=== PATIENT | male | born 1950 | race Caucasian/White ===

== ENCOUNTER 2019-07-18 11:15 | Inpatient (IN) | payer MEDICARE, MEDICAID ==
[~2019-07-18] VITALS: Ht 180.3 cm; Wt 75.7 kg
[~2019-07-18 11:15] MED LIST: ACETAMINOP500 MG/51 ORAL; ARICEPT10 MG ORAL; LISINOPRIL5 MG ORAL; PROTONIX40 MG ORAL; UNOBMED
--- NOTE | 2019-07-18 11:36 | Emergency Room Report ---
History of Present Illness General Chief Complaint: Generalized Weakness Source: Medical Record, EMS Present Illness HPI The patient is brought in by BLS from rehab at the [facility] for not eating for 1 week. There is very little history available. The patient was recently discharged from the hospital. Discharge diagnoses: 1. Dementia with behavioral changes, Alzheimer's. 2. Obstructive sleep apnea. 3. History of anemia. 4. Hypertension. 5. Agitation. 6. History of sinusitis. 7. Gravely disabled Allergies: Coded Allergies: BARBITURATES (Verified Allergy, Unknown, 07/07/16) BENZODIAZEPINES (Verified Allergy, Unknown, 07/07/16) CIPROFLOXACIN (Verified Allergy, Unknown, 07/18/19) DIPHENHYDRAMINE (Verified Allergy, Unknown, 07/07/16) DIVALPROEX SODIUM (Verified Allergy, Unknown, 07/07/16) HALOPERIDOL (Verified Allergy, Unknown, 07/07/16) LACTULOSE (Verified Allergy, Unknown, 07/18/19) LEVOFLOXACIN (Verified Allergy, Unknown, 07/18/19) LITHIUM (Verified Allergy, Unknown, 07/07/16) LORATADINE (Verified Allergy, Unknown, 07/07/16) LORAZEPAM (Verified Allergy, Unknown, 07/18/19) MEMANTINE (Verified Allergy, Unknown, 07/18/19) OLANZAPINE (Verified Allergy, Unknown, 07/07/16) PENICILLINS (Verified Allergy, Unknown, 07/07/16) QUETIAPINE (Verified Allergy, Unknown, 07/07/16) ZOLPIDEM (Verified Allergy, Unknown, 07/07/16) Uncoded Allergies: ANTIHISTAMINE (Allergy, Unknown, 07/07/16) Patient History Limited by: medical condition Past Medical History: see triage record, old chart reviewed Past Surgical History: appy, other Social History Narrative retirement facility Reviewed Nursing Documentation: PMH: Agreed; PSxH: Agreed Nursing Documentation-PMH Hx Cardiac Problems: Yes Hx Hypertension: Yes Hx Diabetes: No Hx Cancer: No Hx Gastrointestinal Problems: Yes Hx Neurological Problems: Yes - Aleheimer's disease, Sleep Apnea, herinated disc, atrophy Hx Alzheimer's Disease: Yes Hx Seizures: No Hx Neurologic Surgery: No Hx Brain Shunt: No Review of Systems All Other Systems: limited Physical Exam Vital Signs Date Time Temp Pulse Resp B/P (MAP) Pulse Ox O2 Delivery O2 Flow Rate FiO2 07/18/19 11:16 99.0 72 18 96/61 (73) 90 Room Air General Appearance: no apparent distress, alert - But not responding to verbal stimuli or direction, Chronically Ill Eyes: bilateral eye normal inspection, bilateral eye PERRL ENT: dry mucus membranes Neck: supple Respiratory: lungs clear, normal breath sounds Cardiovascular #1: regular rate, rhythm, no edema Cardiovascular #2: 2+ radial (L) Gastrointestinal: normal inspection, soft, decreased bowel sounds Genitourinary: no CVA tenderness Musculoskeletal: back normal, normal range of motion Neurologic: responsive - Minimally to verbal stimuli, motor strength/tone normal, DTRs symmetric Psychiatric: other - Somewhat agitated and occasionally striking out Skin: no rash Medical Decision Making Diagnostic Impression: Primary Impression: UTI (urinary tract infection) Qualified Codes: N39.0 - Urinary tract infection, site not specified Additional Impressions: Transient hypotension Alzheimer's dementia with behavioral disturbance Qualified Codes: G30.9 - Alzheimer's disease, unspecified; F02.81 - Dementia in other diseases classified elsewhere with behavioral disturbance Pleural effusion, left Hypernatremia Renal insufficiency Fecal impaction ER Course Patient presents with inability to eat for a week. This is a very complex patient as he is unable to communicate. Differential includes acute myocardial infarction, occult infection, exacerbation of depression and schizophrenia, electrolyte imbalance, dehydration amongst others. Evaluation with EKG, chest x -ray, abdominal film and labs. Treatment with IV hydration. There is difficulty as the patient is combative and he is allergic to multiple medications used for sedation. The patient is placed on a electric stop installer. EKG without injury. Chest x-ray left effusion with possible infiltrate. Abdominal films no obstruction. Labs without leukocytosis. Elevated sodium and chloride. Renal insufficiency. Pyuria. Antibiotics begun. Cogentin given for some agitation and involuntary shaking without seizure activity. Tylenol given for fever. Some improvement although still with altered mentation. Response to calling his name and speaking to him although unable to communicate. Patient admitted to medical floor Dr. Scott. Laboratory Tests Test 07/18/19 11:50 07/18/19 12:00 White Blood Count 5.7 K/UL (4.8-10.8) Red Blood Count 5.30 M/UL (4.70-6.10) Hemoglobin 15.4 G/DL (14.2-18.0) Hematocrit 46.2 % (42.0-52.0) Mean Corpuscular Volume 87 FL (80-99) Mean Corpuscular Hemoglobin 29.0 PG (27.0-31.0) Mean Corpuscular Hemoglobin Concent 33.3 G/DL (32.0-36.0) Red Cell Distribution Width 16.3 % (11.6-14.8) H Platelet Count 136 K/UL (150-450) L Mean Platelet Volume 8.6 FL (6.5-10.1) Neutrophils (%) (Auto) 67.0 % (45.0-75.0) Lymphocytes (%) (Auto) 21.5 % (20.0-45.0) Monocytes (%) (Auto) 10.3 % (1.0-10.0) H Eosinophils (%) (Auto) 0.1 % (0.0-3.0) Basophils (%) (Auto) 1.1 % (0.0-2.0) Prothrombin Time 11.2 SEC (9.30-11.50) Prothrombin Time INR 1.1 (0.9-1.1) PTT 28 SEC (23-33) Sodium Level 160 MMOL/L (136-145) H Potassium Level 3.5 MMOL/L (3.5-5.1) Chloride Level 127 MMOL/L (98-107) H Carbon Dioxide Level 25 MMOL/L (21-32) Anion Gap 10 mmol/L (5-15) Blood Urea Nitrogen 30 mg/dL (7-18) H Creatinine 1.4 MG/DL (0.55-1.30) H Estimate Glomerular Filtration Rate mL/min (>60) Glucose Level 123 MG/DL (74-106) H Lactic Acid Level 1.10 mmol/L (0.4-2.0) Calcium Level 8.8 MG/DL (8.5-10.1) Magnesium Level 2.2 MG/DL (1.8-2.4) Total Bilirubin 0.5 MG/DL (0.2-1.0) Aspartate Amino Transferase (AST) 29 U/L (15-37) Alanine Aminotransferase (ALT) 31 U/L (12-78) Alkaline Phosphatase 106 U/L (46-116) Total Creatine Kinase 164 U/L (26-308) Troponin I 0.000 ng/mL (0.000-0.056) Pro-B-Type Natriuretic Peptide 62 pg/mL (0-125) Total Protein 7.2 G/DL (6.4-8.2) Albumin 3.0 G/DL (3.4-5.0) L Globulin 4.2 g/dL Albumin/Globulin Ratio 0.7 (1.0-2.7) L Lipase 182 U/L (73-393) Urine Color Brown Urine Appearance Very cloudy Urine pH 6.5 (4.5-8.0) Urine Specific [place] 1.020 (1.005-1.035) Urine Protein 4+ (NEGATIVE) H Urine Glucose (UA) Negative (NEGATIVE) Urine Ketones 1+ (NEGATIVE) H Urine Blood 5+ (NEGATIVE) H Urine Nitrite Negative (NEGATIVE) Urine Bilirubin Negative (NEGATIVE) Urine Urobilinogen Normal MG/DL (0.0-1.0) Urine Leukocyte Esterase 2+ (NEGATIVE) H Urine RBC Tntc /HPF (0 - 0) H Urine WBC 40-60 /HPF (0 - 0) H Urine Squamous Epithelial Cells Occasional /LPF Urine Bacteria Many /HPF (NONE) H EKG Diagnostic Results Rate: normal Rhythm: NSR ST Segments: no acute changes Rhythm Strip Diag. Results EP Interpretation: yes Rhythm: NSR, no PVC's, no ectopy Chest X-Ray Diagnostic Results Chest X-Ray Diagnostic Results : Chest X-Ray Ordered: Yes # of Views/Limited/Complete: 1 View Indication: Other EP Interpretation: Yes Interpretation: no pneumothorax, other - effusion or infiltrate L base Impression: Other Electronically Signed by: Electronically signed by Adam Gaming MD Other X-Ray Diagnostic Results Other X-Ray Diagnostic Results : X-Ray ordered: Abdomen # of Views/Limited Vs Complete: 1 View Indication: Other EP Interpretation: Yes Interpretation: nonspecific bowel gas, no sbo, other - Increased fecal load and rectum Impression: Other Electronically Signed by: Electronically signed by Adam Gaming MD Last Vital Signs Date Time Temp Pulse Resp B/P (MAP) Pulse Ox O2 Delivery O2 Flow Rate FiO2 07/18/19 21:00 Room Air 07/18/19 20:00 98.1 59 18 129/56 (80) 93 Status: improved Disposition: ADMITTED INPATIENT Condition: Serious Adam Gaming MD Jul 18, 2019 11:36
[2019-07-18] MEDS ORDERED: Sodium Chloride 2,500 ML IVLG ONE (11:45)
[2019-07-18] MEDS ORDERED: Acetaminophen 650 MG SUPP RECTAL ONE (11:45)
--- NOTE | 2019-07-18 12:00 | NUR ---
ED Nurse Note:pt. was BIBA from SNF with ALOC and failure to thrive, has rectal temp of 100.4, was given tylenol, skin is intact, pt. is awake and non verbal, non cooperative, placed on program trainer, blood cultures and urine sent to labs, VSS, given IV fluids
[2019-07-18 12:12] LABS: BASOPHILS % (AUTO) 1.1 % (0.0-2.0); EOSINOPHILS % (AUTO) 0.1 % (0.0-3.0); HEMATOCRIT 46.2 % (42.0-52.0); HEMOGLOBIN 15.4 G/DL (14.2-18.0); LYMPHOCYTES % (AUTO) 21.5 % (20.0-45.0); MEAN CORPUSCULAR VOLUME 87 FL (80-99); MONOCYTES % (AUTO) 10.3 % (1.0-10.0); PLATELET COUNT 136 K/UL (150-450); RED CELL DISTRIBUTION WIDTH 16.3 % (11.6-14.8); WHITE BLOOD COUNT 5.7 K/UL (4.8-10.8)
[2019-07-18] MEDS ORDERED: DULCOLAX10 MG RC (12:19)
[2019-07-18] MEDS ORDERED: MILK OF MA400 MG/51 ORAL (12:19)
[2019-07-18] MEDS ORDERED: ASPIRIN81 MG ORAL (12:19)
[2019-07-18] MEDS ORDERED: MUCINEX600 MG PO (12:19)
[2019-07-18] MEDS ORDERED: FLEET ENEMA133 ML RECTAL (12:19)
[2019-07-18] MEDS ORDERED: FAMOTIDINE20 MG ORAL (12:19)
[2019-07-18 12:22] LABS: INR 1.1 (0.9-1.1)
[2019-07-18 12:25] VITALS: BP 124/68
[2019-07-18 12:25] LABS: APPEARANCE,URINE VERY CLOUDY; BILIRUBIN, URINE NEGATIVE (NEGATIVE); GLUCOSE, URINE (UA) NEGATIVE (NEGATIVE); KETONES,URINE 1+ (NEGATIVE); LEUKOCYTE ESTERASE ,URINE 2+ (NEGATIVE); NITRITE,URINE NEGATIVE (NEGATIVE); PH,URINE 6.5 (4.5-8.0); PROTEIN,URINE 4+ (NEGATIVE); UROBILINOGEN,URINE NORMAL MG/DL (0.0-1.0)
[2019-07-18 12:28] LABS: COLOR,URINE BROWN
[2019-07-18 12:33] LABS: ALANINE AMINOTRANSFERASE 31 U/L (12-78); ALBUMIN/GLOBULIN RATIO 0.7 (1.0-2.7); ALKALINE PHOSPHATASE 106 U/L (46-116); ANION GAP 10 mmol/L (5-15); ASPARTATE AMINO TRANSFERASE 29 U/L (15-37); BILIRUBIN,TOTAL 0.5 MG/DL (0.2-1.0); BLOOD UREA NITROGEN 30 mg/dL (7-18); CALCIUM 8.8 MG/DL (8.5-10.1); CARBON DIOXIDE 25 MMOL/L (21-32); CHLORIDE 127 MMOL/L (98-107); CREATINE KINASE 164 U/L (26-308); CREATININE 1.4 MG/DL (0.55-1.30); POTASSIUM 3.5 MMOL/L (3.5-5.1); SODIUM 160 MMOL/L (136-145)
[2019-07-18] MEDS ORDERED: Vancomycin 1.5gm/D5W Premix 275 ML IVPB SCH (13:45)
[2019-07-18] MEDS ORDERED: Cefepime HCl 1 GM in D5W 55 ML IVPB ONE (13:45)
[2019-07-18] MEDS ORDERED: Vancomycin 1.5 GM in D5W 275 ML IVPB SCH (13:46)
[2019-07-18] MEDS ORDERED: Albuterol/Ipratropium 3ml neb HHN PRN (14:00)
[2019-07-18] MEDS ORDERED: Miralax 17gm pkt ORAL PRN (14:00)
[2019-07-18] MEDS ORDERED: Morphine Sulfate 2mg/ml Inj(IV/IM USE ONLY) IVP PRN (14:00)
--- NOTE | 2019-07-18 14:32 | Diagnostic Imaging Report ---
Indication: Altered level of consciousness Technique: One view of the chest Comparison: none Findings: The heart is enlarged. The left hemidiaphragm is obscured and there is retrocardiac opacity. The right lung and pleural space are grossly clear. Impression: Retrocardiac infiltrate and possible left basilar pleural fluid
[2019-07-18 14:35] VITALS: BP 118/87
--- NOTE | 2019-07-18 14:40 | Diagnostic Imaging Report ---
Indication: Abdominal pain Technique: Supine view of the abdomen Comparison: none Findings: The rectum appears distended with stool. Small and large bowel loops are gas-filled, nondistended. No masses or unusual calcifications. Pleural and parenchymal disease is seen at the left lung base Impression: Rectum is distended with feces, likely reflecting rectal fecal impaction Evidence of pleural and parenchymal disease of the left lung base
[2019-07-18 16:00] VITALS: BP 132/82
[2019-07-18] MEDS ORDERED: Cefepime 1gm/D5W 55ml IVPB ONE ×2 (16:00)
--- NOTE | 2019-07-18 16:28 | Consultation ---
History of Present Illness General Date patient seen: Jul 18, 2019 Chief Complaint: Generalized Weakness Present Illness HPI 69 y/o M with hx of Alzheimer's disease, HERON, DDD, HTN is brought from rehab center on 07/18 for 1 week of not eating. Allergies: Coded Allergies: BARBITURATES (Verified Allergy, Unknown, 07/07/16) BENZODIAZEPINES (Verified Allergy, Unknown, 07/07/16) CIPROFLOXACIN (Verified Allergy, Unknown, 07/18/19) DIPHENHYDRAMINE (Verified Allergy, Unknown, 07/07/16) DIVALPROEX SODIUM (Verified Allergy, Unknown, 07/07/16) HALOPERIDOL (Verified Allergy, Unknown, 07/07/16) LACTULOSE (Verified Allergy, Unknown, 07/18/19) LEVOFLOXACIN (Verified Allergy, Unknown, 07/18/19) LITHIUM (Verified Allergy, Unknown, 07/07/16) LORATADINE (Verified Allergy, Unknown, 07/07/16) LORAZEPAM (Verified Allergy, Unknown, 07/18/19) MEMANTINE (Verified Allergy, Unknown, 07/18/19) OLANZAPINE (Verified Allergy, Unknown, 07/07/16) PENICILLINS (Verified Allergy, Unknown, 07/07/16) QUETIAPINE (Verified Allergy, Unknown, 07/07/16) ZOLPIDEM (Verified Allergy, Unknown, 07/07/16) Uncoded Allergies: ANTIHISTAMINE (Allergy, Unknown, 07/07/16) Medication History Scheduled Acetaminophen (Acetaminophen), 500 MG ORAL PRN, (Reported) Aspirin* (Aspirin*), 81 MG ORAL DAILY, (Reported) Donepezil Hcl* (Aricept*), 10 MG ORAL DAILY, (Reported) Famotidine (Famotidine), 20 MG ORAL TWICE A DAY, (Reported) Guaifenesin (Mucinex), 600 MG PO DAILY, (Reported) Lisinopril (Lisinopril*), 10 MG ORAL DAILY, (Reported) Magnesium Hydroxide* (Milk Of Magnesia*), 30 ML ORAL DAILY, (Reported) Na Phos,M-B/Na Phos,Di-Ba* (Fleet Enema*), 133 ML RECTAL EVERY 72 HOURS, ( Reported) Pantoprazole* (Protonix*), 40 MG ORAL DAILY, (Reported) Miscellaneous Medications Bisacodyl (Dulcolax), 10 MG RC, (Reported) Patient History Healthcare decision maker Resuscitation status Advanced Directive on File Patient History Narrative Pmhx: as above Shx: reviewed Fhx: non contributory Physical Exam Last 24 Hour Vital Signs Date Time Temp Pulse Resp B/P (MAP) Pulse Ox O2 Delivery O2 Flow Rate FiO2 07/18/19 16:00 98.2 59 18 132/82 (99) 94 07/18/19 15:23 99.5 64 18 118/87 97 Room Air 07/18/19 14:35 99.5 64 18 118/87 97 Room Air 07/18/19 13:21 99.6 07/18/19 12:25 72 18 Room Air 07/18/19 12:25 100.4 70 18 124/68 96 Room Air 07/18/19 11:16 99.0 72 18 96/61 (73) 90 Room Air Laboratory Tests Test 07/18/19 11:50 07/18/19 12:00 White Blood Count 5.7 K/UL (4.8-10.8) Red Blood Count 5.30 M/UL (4.70-6.10) Hemoglobin 15.4 G/DL (14.2-18.0) Hematocrit 46.2 % (42.0-52.0) Mean Corpuscular Volume 87 FL (80-99) Mean Corpuscular Hemoglobin 29.0 PG (27.0-31.0) Mean Corpuscular Hemoglobin Concent 33.3 G/DL (32.0-36.0) Red Cell Distribution Width 16.3 % (11.6-14.8) H Platelet Count 136 K/UL (150-450) L Mean Platelet Volume 8.6 FL (6.5-10.1) Neutrophils (%) (Auto) 67.0 % (45.0-75.0) Lymphocytes (%) (Auto) 21.5 % (20.0-45.0) Monocytes (%) (Auto) 10.3 % (1.0-10.0) H Eosinophils (%) (Auto) 0.1 % (0.0-3.0) Basophils (%) (Auto) 1.1 % (0.0-2.0) Prothrombin Time 11.2 SEC (9.30-11.50) Prothromb Time International Ratio 1.1 (0.9-1.1) Activated Partial Thromboplast Time 28 SEC (23-33) Sodium Level 160 MMOL/L (136-145) H Potassium Level 3.5 MMOL/L (3.5-5.1) Chloride Level 127 MMOL/L (98-107) H Carbon Dioxide Level 25 MMOL/L (21-32) Anion Gap 10 mmol/L (5-15) Blood Urea Nitrogen 30 mg/dL (7-18) H Creatinine 1.4 MG/DL (0.55-1.30) H Estimat Glomerular Filtration Rate mL/min (>60) Glucose Level 123 MG/DL (74-106) H Lactic Acid Level 1.10 mmol/L (0.4-2.0) Calcium Level 8.8 MG/DL (8.5-10.1) Magnesium Level 2.2 MG/DL (1.8-2.4) Total Bilirubin 0.5 MG/DL (0.2-1.0) Aspartate Amino Transf (AST/SGOT) 29 U/L (15-37) Alanine Aminotransferase (ALT/SGPT) 31 U/L (12-78) Alkaline Phosphatase 106 U/L (46-116) Total Creatine Kinase 164 U/L (26-308) Troponin I 0.000 ng/mL (0.000-0.056) Pro-B-Type Natriuretic Peptide 62 pg/mL (0-125) Total Protein 7.2 G/DL (6.4-8.2) Albumin 3.0 G/DL (3.4-5.0) L Globulin 4.2 g/dL Albumin/Globulin Ratio 0.7 (1.0-2.7) L Lipase 182 U/L (73-393) Urine Color Brown Urine Appearance Very cloudy Urine pH 6.5 (4.5-8.0) Urine Specific [place] 1.020 (1.005-1.035) Urine Protein 4+ (NEGATIVE) H Urine Glucose (UA) Negative (NEGATIVE) Urine Ketones 1+ (NEGATIVE) H Urine Blood 5+ (NEGATIVE) H Urine Nitrite Negative (NEGATIVE) Urine Bilirubin Negative (NEGATIVE) Urine Urobilinogen Normal MG/DL (0.0-1.0) Urine Leukocyte Esterase 2+ (NEGATIVE) H Urine RBC Tntc /HPF (0 - 0) H Urine WBC 40-60 /HPF (0 - 0) H Urine Squamous Epithelial Cells Occasional /LPF Urine Bacteria Many /HPF (NONE) H Height (Feet): 5 Height (Inches): 11.00 Weight (Pounds): 185 Medications Current Medications Medications (Trade) Dose Ordered Sig/Monisha Route PRN Reason Start Time Stop Time Status Last Admin Dose Admin Acetaminophen (Tylenol) 650 mg Q4H PRN ORAL fever (T>100.5F) 07/18/19 14:00 08/17/19 13:59 Albuterol/ Ipratropium (Albuterol/ Ipratropium) 3 ml Q4H PRN HHN Shortness of Breath 07/18/19 14:00 07/23/19 13:59 Cefepime HCl 1 gm/ Dextrose 55 ml @ 110 mls/hr ONCE ONCE IVPB 07/18/19 16:00 07/18/19 16:29 Cefepime HCl 2 gm/ Dextrose 110 ml @ 220 mls/hr Q12HR@0400,1600 IV 07/19/19 04:00 07/26/19 03:59 Donepezil HCl (Aricept) 10 mg DAILY ORAL 07/19/19 09:00 08/18/19 08:59 Heparin Sodium (Porcine) (Heparin 5000 units/ml) 5,000 units EVERY 12 HOURS SUBQ 07/18/19 21:00 08/17/19 20:59 Morphine Sulfate (Morphine Sulfate) 2 mg Q4H PRN IVP Moderate Pain (Pain Scale 4-6) 07/18/19 14:00 07/25/19 13:59 Ondansetron HCl (Zofran) 4 mg Q6H PRN IVP Nausea & Vomiting 07/18/19 14:00 08/17/19 13:59 Phenazopyridine HCl (Pyridium) 100 mg DAILYPRN PRN ORAL dysuria 07/18/19 14:00 08/17/19 13:59 Polyethylene Glycol (Miralax) 17 gm DAILYPRN PRN ORAL Constipation 07/18/19 14:00 08/17/19 13:59 Vancomycin HCl (Vanco rx to dose) 1 ea DAILY PRN MISC PER RX PROTOCOL 07/18/19 15:00 08/17/19 14:59 Vancomycin HCl/ Dextrose 275 ml @ 137.5 mls/ hr Q24H IVPB 07/19/19 14:00 07/24/19 13:59 Assessment/Plan Assessment/Plan: Abx: IV Vancomycin 07/18- Cefepime 07/18- Assessment: Failure to thrive Low grade fever No leukocytosis Probable UTI -u.a wbc 40-60, nit neg, leuk large; ucx ?Probable pNA -CXR: Retrocardiac infiltrate and possible left basilar pleural fluid JUAN Alzheimer's disease HERON DDD HTN Plan: -Continue empiric IV Vancomycin and Cefepime #1 for now pending cultures -f/u cx -Monitor CBC/CMP, temperatures Thank you for this consultation. Will continue to follow along with you. Discussed with Gina Ureña M.D. Jul 18, 2019 16:28
--- NOTE | 2019-07-18 16:55 | NUR ---
NURSE NOTES: Patient transferred from ER via [facility]. Report received from OSCAR Corea. Patient has no belongings. Patient is non-verbal. No s/s of distress. Side rails are up x3, bed is locked, and patient placed near nurse's station. Will continue to monitor.
--- NOTE | 2019-07-18 16:57 | NUR ---
NURSE NOTES: Sodium 160. Dr. Scott notified. New order received.
--- NOTE | 2019-07-18 19:35 | NUR ---
HAND-OFF: Report given to OSCAR Sampson.
--- NOTE | 2019-07-18 19:36 | NUR ---
NURSE NOTES: Patient in bed, awake, confused. Unable to make needs known. No s/s of pain or discomfort noted. Respiration is even and unlabored. Skin is warm and dry to touch. Abdomen is soft and non distended. Bed in low and locked position. Provided safe environment. IV site noted. Will continue plan of care. Call light is at bedside.
[2019-07-18 20:00] VITALS: BP 129/56
[2019-07-18] MEDS: Heparin 5000 units/ml inj SUBQ SCH (20:47)
[2019-07-19] VITALS: BP 141/78
[2019-07-19] MEDS ORDERED: Vancomycin 1 GM in D5W 275 ML IV SCH (00:30)
[2019-07-19] MEDS: Cefepime HCl 2 GM in D5W 110 ML IV SCH ×2 (03:32→16:47)
[2019-07-19 04:00] VITALS: BP 130/81
--- NOTE | 2019-07-19 07:17 | NUR ---
HAND-OFF: Report given to OSCAR Phillips.
[2019-07-19 08:00] VITALS: BP 128/79
--- NOTE | 2019-07-19 08:00 | NUR ---
NURSE NOTES: Patient is alert to name,respirations unlabored.IV fluids as ordered.Will assist patient with breakfast.Bed alarm is on,call light within reach.
[2019-07-19] MEDS: Heparin 5000 units/ml inj SUBQ SCH (09:00)
[2019-07-19] MEDS ORDERED: Tubing IV Secondary IV ONE (09:44)
[2019-07-19 12:00] VITALS: BP 130/82
[2019-07-19] MEDS: Donepezil 10mg tab ORAL SCH (12:02)
--- NOTE | 2019-07-19 13:31 | History and Physical ---
History of Present Illness General Date patient seen: Jul 19, 2019 Reason for Hospitalization: Generalized Weakness Present Illness HPI 69 year old Male with hx of Alzheimer's disease, HERON, DDD, HTN is brought from rehab center on [place] for 1 week of not eating. Patient has advanced dementia with psychiatric features and was not able to give us any history. He was found to have acute renal failure and admitted for further evaluation. Allergies: Coded Allergies: BARBITURATES (Verified Allergy, Unknown, 07/07/16) BENZODIAZEPINES (Verified Allergy, Unknown, 07/07/16) CIPROFLOXACIN (Verified Allergy, Unknown, 07/18/19) DIPHENHYDRAMINE (Verified Allergy, Unknown, 07/07/16) DIVALPROEX SODIUM (Verified Allergy, Unknown, 07/07/16) HALOPERIDOL (Verified Allergy, Unknown, 07/07/16) LACTULOSE (Verified Allergy, Unknown, 07/18/19) LEVOFLOXACIN (Verified Allergy, Unknown, 07/18/19) LITHIUM (Verified Allergy, Unknown, 07/07/16) LORATADINE (Verified Allergy, Unknown, 07/07/16) LORAZEPAM (Verified Allergy, Unknown, 07/18/19) MEMANTINE (Verified Allergy, Unknown, 07/18/19) OLANZAPINE (Verified Allergy, Unknown, 07/07/16) PENICILLINS (Verified Allergy, Unknown, 07/07/16) QUETIAPINE (Verified Allergy, Unknown, 07/07/16) ZOLPIDEM (Verified Allergy, Unknown, 07/07/16) Uncoded Allergies: ANTIHISTAMINE (Allergy, Unknown, 07/07/16) Medication History Scheduled Acetaminophen (Acetaminophen), 500 MG ORAL PRN, (Reported) Aspirin* (Aspirin*), 81 MG ORAL DAILY, (Reported) Donepezil Hcl* (Aricept*), 10 MG ORAL DAILY, (Reported) Famotidine (Famotidine), 20 MG ORAL TWICE A DAY, (Reported) Guaifenesin (Mucinex), 600 MG PO DAILY, (Reported) Lisinopril (Lisinopril*), 10 MG ORAL DAILY, (Reported) Magnesium Hydroxide* (Milk Of Magnesia*), 30 ML ORAL DAILY, (Reported) Na Phos,M-B/Na Phos,Di-Ba* (Fleet Enema*), 133 ML RECTAL EVERY 72 HOURS, ( Reported) Pantoprazole* (Protonix*), 40 MG ORAL DAILY, (Reported) Miscellaneous Medications Bisacodyl (Dulcolax), 10 MG RC, (Reported) Patient History Healthcare decision maker Resuscitation status Full Code Advanced Directive on File Past Medical/Surgical History Past Medical/Surgical History: (1) Alzheimer's dementia with behavioral disturbance (2) Obstructive sleep apnea (3) HTN (hypertension) Review of Systems All Other Systems: negative except mentioned in HPI Physical Exam General Appearance: WD/WN, no apparent distress Lines, tubes and drains: peripheral, PICC HEENT: normocephalic, atraumatic Neck: non-tender, normal alignment, supple Respiratory/Chest: chest wall non-tender, lungs clear Breasts: no masses Cardiovascular/Chest: normal peripheral pulses Abdomen: normal bowel sounds Genitourinary/Rectal: normal genital exam Extremities: normal range of motion Last 24 Hour Vital Signs Date Time Temp Pulse Resp B/P (MAP) Pulse Ox O2 Delivery O2 Flow Rate FiO2 07/19/19 09:00 59 18 98 Room Air 21 07/19/19 09:00 Room Air 07/19/19 08:00 98.0 58 18 128/79 (95) 98 07/19/19 04:00 97.8 50 18 130/81 (97) 97 07/19/19 00:00 97.6 55 20 141/78 (99) 96 07/18/19 21:00 Room Air 07/18/19 20:00 98.1 59 18 129/56 (80) 93 07/18/19 16:51 Room Air 07/18/19 16:00 98.2 59 18 132/82 (99) 94 07/18/19 15:23 99.5 64 18 118/87 97 Room Air 07/18/19 14:35 99.5 64 18 118/87 97 Room Air Intake and Output 07/18/19 07/19/19 19:00 07:00 Intake Total 350 ml 960 ml Balance 350 ml 960 ml Intake IV Total 150 ml 960 ml Other 200 ml # Voids 2 2 # Bowel Movements 1 Height (Feet): 5 Height (Inches): 11.00 Weight (Pounds): 185 Medications Current Medications Medications (Trade) Dose Ordered Sig/Monisha Route PRN Reason Start Time Stop Time Status Last Admin Dose Admin Acetaminophen (Tylenol) 650 mg Q4H PRN ORAL fever (T>100.5F) 07/18/19 14:00 08/17/19 13:59 Albuterol/ Ipratropium (Albuterol/ Ipratropium) 3 ml Q4H PRN HHN Shortness of Breath 07/18/19 14:00 07/23/19 13:59 Cefepime HCl 2 gm/ Dextrose 110 ml @ 220 mls/hr Q12HR@0400,1600 IV 07/19/19 04:00 07/26/19 03:59 07/19/19 03:32 Dextrose 1,000 ml @ 150 mls/hr Q6H40M IV 07/18/19 17:00 08/17/19 16:59 07/19/19 06:03 Donepezil HCl (Aricept) 10 mg DAILY ORAL 07/19/19 09:00 08/18/19 08:59 07/19/19 12:02 Heparin Sodium (Porcine) (Heparin 5000 units/ml) 5,000 units EVERY 12 HOURS SUBQ 07/18/19 21:00 08/17/19 20:59 Morphine Sulfate (Morphine Sulfate) 2 mg Q4H PRN IVP Moderate Pain (Pain Scale 4-6) 07/18/19 14:00 07/25/19 13:59 Ondansetron HCl (Zofran) 4 mg Q6H PRN IVP Nausea & Vomiting 07/18/19 14:00 08/17/19 13:59 Phenazopyridine HCl (Pyridium) 100 mg DAILYPRN PRN ORAL dysuria 07/18/19 14:00 08/17/19 13:59 Polyethylene Glycol (Miralax) 17 gm DAILYPRN PRN ORAL Constipation 07/18/19 14:00 08/17/19 13:59 Vancomycin HCl (Vanco rx to dose) 1 ea DAILY PRN MISC PER RX PROTOCOL 07/18/19 15:00 08/17/19 14:59 Vancomycin HCl/ Dextrose 275 ml @ 137.5 mls/ hr Q24H IVPB 07/19/19 14:00 07/24/19 13:59 Assessment/Plan Problem List: (1) ATN (acute tubular necrosis) ICD Codes: N17.0 - Acute kidney failure with tubular necrosis SNOMED: 45583887 (2) Anemia ICD Codes: D64.9 - Anemia, unspecified SNOMED: 743445301 (3) HTN (hypertension) ICD Codes: I10 - Essential (primary) hypertension SNOMED: 88536173 (4) Obstructive sleep apnea ICD Codes: G47.33 - Obstructive sleep apnea (adult) (pediatric) SNOMED: 55659384 (5) Hypernatremia ICD Codes: E87.0 - Hyperosmolality and hypernatremia SNOMED: 080980219 (6) Alzheimer's dementia with behavioral disturbance ICD Codes: G30.8 - Other Alzheimer's disease; F02.81 - Dementia in other diseases classified elsewhere with behavioral disturbance SNOMED: 8311564069285 Qualifiers: Qualified Codes: G30.9 - Alzheimer's disease, unspecified; F02.81 - Dementia in other diseases classified elsewhere with behavioral disturbance Assessment/Plan: iv fluids swallow study check electrolytes monitor BP titrate fio2 to sat of 92% dvt prophylaxis. Eladio Scott MD Jul 19, 2019 13:31
--- NOTE | 2019-07-19 13:46 | NUR ---
NURSE NOTES: DR Scott wrote order for seroquel,order receive from DR Scott to D/C seroquel.DR aware of patient platelet today of 136,new order to D/C heparin ,to apply SCD,prior to SCD get Venous duplex scan bilateral legs.
--- NOTE | 2019-07-19 13:58 | NUR ---
RD ASSESSMENT & RECOMMENDATIONS SEE CARE ACTIVITY FOR COMPLETE ASSESSMENT DAILY ESTIMATED NEEDS: Needs based on cardiac, 80kg abw 25-30 kcals/kg 0919-1781 total kcals 1-1.3 g protein/kg 80-104 g total protein 25-30 mL/kg 8261-0187 total fluid mLs NUTRITION DIAGNOSIS: Inadequate oral intake R/T decreased appetite, decreased cognitive fxn as evidenced by pt admitted w/ FTT dx w/ c/o "1 week of not eating," pt w/ h/o advanced dementia with psychiatric features. CURRENT DIET:REGULAR PO DIET RECOMMENDATIONS: Liberalized REGULAR, texture per LAMP SHADE JOINER ADDITIONAL RECOMMENDATIONS: * Txr pt to bed w/ functioning bedscale, obtain calibrated bedscale wt * Calorie count x 48 hrs * Add Ensure Enlive TID w/ meals * MVI x 1 as supplement * Consider appetite stimulant * Monitor PO intake and tolerance closely, need for nonoral feedings.
--- NOTE | 2019-07-19 14:14 | NUR ---
SWALLOW/SPEECH THERAPY NOTE: REFERRED BY DR CONNER FOR A SWALLOW EVALUATION, SEE FULL REPORT TO FOLLOW. DYSPHAGIA RISK FACTORS FOR THIS 69 Y.O.M.: ACUTE ISSUES: GENERAL WEAKNESS, FTT, POOR INTAKE, DEHYDRATION H/O PNA (1999) OROPHARYNGEAL DYSPHAGIA (2016), PROGRESSIVE NEURODEGENERATIVE DISEASE, ALZHEIMER'S DZ DEMENTIA (DX 2012 PROGRESSIVELY WORSE) MRI BRAIN IN APRIL 2016: SIGNIFICANT ATROPHY OF HIPPOCAMPAL AREA, NO CV DZ NO STROKES NOR HEMORRHAGE. AT [facility] HOSP IN LOCKED FACILITY 7 DAYS 2016 ALLERGIC TO MANY MEDS AND 5 MG HALDO STOPPED BREATHING AND GIVEN IV BENEDRYL HE BECAME LESS AGITATED. H/O SCREAMING PROFANITIES AND TRYING TO CLIMB OUT OF GURNEY AND HIT PERSONNEL, COULD NOT ANSWER QUESTIONS. GIVEN HALDOL NO S/E AND BECAME CALMER. ALSO HAS H/O HOSP AT [facility] (SEE MEDICAL RECORD PRIOR VISIT REPORTS 2015), HTN, PERSONAL H/O MENTAL BEHAVIORAL D/O, SCHIZOPHRENIA, SINUSITIS, SLEEP APNEA, REDUCED HEARING, SUNDOWNERS, HIATAL HERNIA, COPD. RELEVANT MEDS: [facility]ICE[facility] POLST NOT IN CHART BUT HAS DPOA, SHOULD DISCUSS TF PREFERENCES ONLY IF INDICATED. AT SNF ON A ESTHER REGULAR TEXTURE DIET AND THIN LIQUIDS WITH NO SWEETS, MILK, JUICE, PORT, RED MEAT, NO ADDED SUGARS, DESSERTS, ARTIFICIAL SWEETENERS, SF DESSERTS OR DRINKS. MAY HAVE FRESH FRUIT, APPLESAUCE, GRAM CRACKERS, ADD 8 OZ GLASS OF WATER TO MEALS. TOSSED SALAD LUNCH AND DINNER. ADMITTED FOR POOR PO FROM SNF ? SAME DIET. PATIENT IS ON A REGULAR TEXTURE AND TYPE DIET AND THIN LIQUIDS. 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 HE WOULD SOMETIMES MOVE HIS FEET OR ARMS AROUND BUT DID NOT TRY TO SELF-FEED. [place] PER CHART INFO. INITIAL IMPRESSIONS: S/S OF AT LEAST A MILD DYSPHAGIA WITH MILDLY INCREASED OROPHARYNGEAL TRANSIT TIMES. POOR FOLLOWING ORAL COMMANDS, VOICE WITH LAUGH HAD GOOD LOUDNESS BUT SPEECH IS NOT INTELLIGIBLE GIVEN THIN LIQUIDS VIA CUP AND PUREED TSP, NEEDED A FEW SECONDS TO SWALLOW WITH FAIR HYOLARYNGEAL EXCURSION, NO ORAL RESIDUE NO OVERT ASPIRATION. MOVING ARMS TOO MUCH TO GIVE SEQUENTIAL SIPS WITH CUP/STRAW. ALSO TENDS TO CHEW PUREED A LITTLE. GIVEN MASTICATED SOLIDS 1/2 CRACKER, SLOWER CHEWING 10 SECONDS AND NEEDED LIQUID WASH TO CLEAR MILD ORAL RESIDUE ON TONGUE, NO OVERT ASPIRATION. RECOMMENDATIONS: CONTINUE WITH PO INTAKE BUT DOWNGRADE TO [facility] SOFT CHOPPED DIET AND THIN LIQUIDS BUT USE POSTED ASPIRATION PRECAUTIONS AND ONE TO ONE FEEDING. SEE SNF RECOMMENDATIONS FOR DIET PREFERENCES. COMPLETE MOD BARIUM SWALLOW STUDY, DYSPHAGIA MANAGEMENT AND TX, AND COGNITIVE-COMMUNICATIVE EVAL/TX EDUCATED/TRAINED NIC WALSH AND OSCAR PELAEZ IN POSTED PRECAUTIONS. D/W RN, DR CONNER, LEFT MESSAGE WITH PSYCHIATRIST DR VERA, AND WILL TRY TO REACH FAMILY. Addendum: 07/19/19 at 1416 by TOÑO PERALTA UTILITY DRIVER NO PORK Addendum: 07/19/19 at 1420 by TOÑO PERALTA UTILITY DRIVER [place] [facility] [place]AL ON 07/08/16 AND HAD A FUNCTIONAL SWALLOW SO PUT ON A CARDIAC REGULAR TEXTURE AND THIN LIQUID DIET WITH ASPIRATION PRECAUTIONS. MOD BARIUM SWALLOW REC BUT NOT COMPLETED DUE TO SCHEDULE CONFLICTS. Addendum: 07/19/19 at 1420 by TOÑO CEDILLO SPOKE RD REGARDING DIET PREFERENCES FROM SNF
[2019-07-19] MEDS: Vancomycin 1.5gm Premix IVPB SCH (14:32)
--- NOTE | 2019-07-19 15:05 | Infectious Diseases Prog Note ---
Assessment/Plan Assessment/Plan Abx: IV Vancomycin 07/18- Cefepime 07/18- Assessment: Failure to thrive Low grade fever No leukocytosis Probable UTI -u.a wbc 40-60, nit neg, leuk large; ucx ?Probable pNA -CXR: Retrocardiac infiltrate and possible left basilar pleural fluid JUAN Alzheimer's disease HERON DDD HTN Plan: -Continue empiric IV Vancomycin and Cefepime #2 for now pending cultures -f/u cx -Monitor CBC/CMP, temperatures -sp cx Thank you for this consultation. Will continue to follow along with you. Discussed with RN Subjective Allergies: Coded Allergies: BARBITURATES (Verified Allergy, Unknown, 07/07/16) BENZODIAZEPINES (Verified Allergy, Unknown, 07/07/16) CIPROFLOXACIN (Verified Allergy, Unknown, 07/18/19) DIPHENHYDRAMINE (Verified Allergy, Unknown, 07/07/16) DIVALPROEX SODIUM (Verified Allergy, Unknown, 07/07/16) HALOPERIDOL (Verified Allergy, Unknown, 07/07/16) LACTULOSE (Verified Allergy, Unknown, 07/18/19) LEVOFLOXACIN (Verified Allergy, Unknown, 07/18/19) LITHIUM (Verified Allergy, Unknown, 07/07/16) LORATADINE (Verified Allergy, Unknown, 07/07/16) LORAZEPAM (Verified Allergy, Unknown, 07/18/19) MEMANTINE (Verified Allergy, Unknown, 07/18/19) OLANZAPINE (Verified Allergy, Unknown, 07/07/16) PENICILLINS (Verified Allergy, Unknown, 07/07/16) QUETIAPINE (Verified Allergy, Unknown, 07/07/16) ZOLPIDEM (Verified Allergy, Unknown, 07/07/16) Uncoded Allergies: ANTIHISTAMINE (Allergy, Unknown, 07/07/16) Subjective afebrile >24hrs no leukcoytosis Objective Vital Signs Last 24 Hour Vital Signs Date Time Temp Pulse Resp B/P (MAP) Pulse Ox O2 Delivery O2 Flow Rate FiO2 07/19/19 12:00 98.4 6 18 130/82 (98) 98 07/19/19 09:00 59 18 98 Room Air 21 07/19/19 09:00 Room Air 07/19/19 08:00 98.0 58 18 128/79 (95) 98 07/19/19 04:00 97.8 50 18 130/81 (97) 97 07/19/19 00:00 97.6 55 20 141/78 (99) 96 07/18/19 21:00 Room Air 07/18/19 20:00 98.1 59 18 129/56 (80) 93 07/18/19 16:51 Room Air 07/18/19 16:00 98.2 59 18 132/82 (99) 94 07/18/19 15:23 99.5 64 18 118/87 97 Room Air Height (Feet): 5 Height (Inches): 11.00 Weight (Pounds): 185 Objective General Appearance: WD/WN, no apparent distress Lines, tubes and drains: peripheral, PICC HEENT: normocephalic, atraumatic Neck: non-tender, normal alignment, supple Respiratory/Chest: chest wall non-tender, lungs clear Breasts: no masses Cardiovascular/Chest: normal peripheral pulses Abdomen: normal bowel sounds Genitourinary/Rectal: normal genital exam Extremities: normal range of motion Microbiology Date/Time Source Procedure Growth Status 07/18/19 12:00 Urine,Clean Catch Urine Culture - Preliminary Gram Positive Cocci Resulted Current Medications Medications (Trade) Dose Ordered Sig/Monisha Route PRN Reason Start Time Stop Time Status Last Admin Dose Admin Acetaminophen (Tylenol) 650 mg Q4H PRN ORAL fever (T>100.5F) 07/18/19 14:00 08/17/19 13:59 Albuterol/ Ipratropium (Albuterol/ Ipratropium) 3 ml Q4H PRN HHN Shortness of Breath 07/18/19 14:00 07/23/19 13:59 Cefepime HCl 2 gm/ Dextrose 110 ml @ 220 mls/hr Q12HR@0400,1600 IV 07/19/19 04:00 07/26/19 03:59 07/19/19 03:32 Dextrose 1,000 ml @ 75 mls/hr [id number] IV 07/19/19 13:27 08/18/19 13:26 07/19/19 14:28 Donepezil HCl (Aricept) 10 mg DAILY ORAL 07/19/19 09:00 08/18/19 08:59 07/19/19 12:02 Morphine Sulfate (Morphine Sulfate) 2 mg Q4H PRN IVP Moderate Pain (Pain Scale 4-6) 07/18/19 14:00 07/25/19 13:59 Ondansetron HCl (Zofran) 4 mg Q6H PRN IVP Nausea & Vomiting 07/18/19 14:00 08/17/19 13:59 Phenazopyridine HCl (Pyridium) 100 mg DAILYPRN PRN ORAL dysuria 07/18/19 14:00 08/17/19 13:59 Polyethylene Glycol (Miralax) 17 gm DAILYPRN PRN ORAL Constipation 07/18/19 14:00 08/17/19 13:59 Vancomycin HCl (Vanco rx to dose) 1 ea DAILY PRN MISC PER RX PROTOCOL 07/18/19 15:00 08/17/19 14:59 Vancomycin HCl/ Dextrose 275 ml @ 137.5 mls/ hr Q24H IVPB 07/19/19 14:00 07/24/19 13:59 07/19/19 14:32 Gina Baker M.D. Jul 19, 2019 15:05
--- NOTE | 2019-07-19 15:18 | NUR ---
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 98.9 HR 72 RR 18 B/P 96/61 BUN 30 CR 1.4 UA+ PROTEIN,KETONES,BLOOD,LEUKOCYTE ESTERASE,RBC,WBC,BACTERIA CXR= RETROCARDIO INFILTRATES AND POSSIBLE LEFT BASE PLEURAL FLUID ABD X-RAY= FECAL IMPACTION IS: IV BOLUS NS X 2 LITERS TYLENOL ADMITTED TO MED/SURG @ 1530 MED/SURG STATUS DCP RETURN TO [facility] [address]
[2019-07-19 16:00] VITALS: BP 136/79
--- NOTE | 2019-07-19 16:43 | Cardiology Report ---
APPROVED REPORT EKG Measurement Heart [id number] Suspect arm lead reversal, interpretation assumes no reversal Sinus bradycardia Right superior axis deviation Abnormal ECG
--- NOTE | 2019-07-19 18:30 | NUR ---
NURSE NOTES: patient resting,iv continue to infuse.Bed alarm is on,call light within reach.
[2019-07-19 20:00] VITALS: BP 124/94
--- NOTE | 2019-07-19 20:22 | NUR ---
NURSE NOTES:HAND-OFF: Report given to DAVE RN.
[2019-07-20] VITALS: BP 145/83
--- NOTE | 2019-07-20 01:25 | NUR ---
NURSE NOTES: RECEIVED PT FROM OSCAR PELAEZ. PT IS AWAKE, AAOX1 TO NAME, CONFUSED, RESTLESS, AGGRESSIVE AND RESISTIVE TO CARE. PT IS ON ROOM AIR, NO RESPIRATORY DISTRESS NOTED. IV ON RIGHT WRIST 22G IS INTACT AND PATENT. BED IS LOCKED AT THE LOWEST POSITION, BED ALARMS ACTIVE, SIDE RAILS UPX3, AND CALL LIGHT IS WITHIN REACH. WILL CONTINUE TO MONITOR.
[2019-07-20 04:00] VITALS: BP 157/90
[2019-07-20] MEDS: Cefepime HCl 2 GM in D5W 110 ML IV SCH ×2 (04:48→16:58)
[2019-07-20 07:30] LABS: ALANINE AMINOTRANSFERASE 27 U/L (12-78); ALBUMIN 2.6 G/DL (3.4-5.0); ALBUMIN/GLOBULIN RATIO 0.7 (1.0-2.7); ALKALINE PHOSPHATASE 93 U/L (46-116); ANION GAP 8 mmol/L (5-15); ASPARTATE AMINO TRANSFERASE 28 U/L (15-37); BASOPHILS % (AUTO) 0.7 % (0.0-2.0); BILIRUBIN,TOTAL 0.8 MG/DL (0.2-1.0); BLOOD UREA NITROGEN 16 mg/dL (7-18); CALCIUM 8.3 MG/DL (8.5-10.1); CARBON DIOXIDE 25 MMOL/L (21-32); CHLORIDE 117 MMOL/L (98-107); EOSINOPHILS % (AUTO) 1.9 % (0.0-3.0); HEMATOCRIT 42.6 % (42.0-52.0); HEMOGLOBIN 14.4 G/DL (14.2-18.0); MEAN CORPUSCULAR VOLUME 87 FL (80-99); MONOCYTES % (AUTO) 11.1 % (1.0-10.0); NEUTROPHILS % (AUTO) 59.2 % (45.0-75.0); PHOSPHORUS 2.2 MG/DL (2.5-4.9); PLATELET COUNT 106 K/UL (150-450); POTASSIUM 3.2 MMOL/L (3.5-5.1); RED BLOOD COUNT 4.87 M/UL (4.70-6.10); RED CELL DISTRIBUTION WIDTH 12.9 % (11.6-14.8); SODIUM 150 MMOL/L (136-145); WHITE BLOOD COUNT 4.2 K/UL (4.8-10.8)
--- NOTE | 2019-07-20 07:30 | NUR ---
NURSE NOTES: Received pt from RN DAVE. Pt is confused and orient x1. pt is in RA, no SOB or acute respiratory distress noted. pt has intact iv access RAC 22g is running well. Dr garcia visited pt and he is aware about K, PH and other lab results and ordered potassium phosphate 30mm once, noted and carried out. all needs attended, bed is locked and is in the lowest position. call light within easy reach. will continue to monitor.
--- NOTE | 2019-07-20 07:52 | Pulmonology Progress Note ---
Assessment/Plan Problems: (1) ATN (acute tubular necrosis) (2) Anemia (3) HTN (hypertension) (4) Obstructive sleep apnea (5) Hypernatremia (6) Alzheimer's dementia with behavioral disturbance Assessment/Plan improving less agitated check electrolytes respiratory treatment titrate fio2 to sat of 92% dvt prophylaxis. Subjective ROS Limited/Unobtainable: No Interval Events: calmer, open eyes Allergies: Coded Allergies: BARBITURATES (Verified Allergy, Unknown, 07/07/16) BENZODIAZEPINES (Verified Allergy, Unknown, 07/07/16) CIPROFLOXACIN (Verified Allergy, Unknown, 07/18/19) DIPHENHYDRAMINE (Verified Allergy, Unknown, 07/07/16) DIVALPROEX SODIUM (Verified Allergy, Unknown, 07/07/16) HALOPERIDOL (Verified Allergy, Unknown, 07/07/16) LACTULOSE (Verified Allergy, Unknown, 07/18/19) LEVOFLOXACIN (Verified Allergy, Unknown, 07/18/19) LITHIUM (Verified Allergy, Unknown, 07/07/16) LORATADINE (Verified Allergy, Unknown, 07/07/16) LORAZEPAM (Verified Allergy, Unknown, 07/18/19) MEMANTINE (Verified Allergy, Unknown, 07/18/19) OLANZAPINE (Verified Allergy, Unknown, 07/07/16) PENICILLINS (Verified Allergy, Unknown, 07/07/16) QUETIAPINE (Verified Allergy, Unknown, 07/07/16) ZOLPIDEM (Verified Allergy, Unknown, 07/07/16) Uncoded Allergies: ANTIHISTAMINE (Allergy, Unknown, 07/07/16) Objective Last 24 Hour Vital Signs Date Time Temp Pulse Resp B/P (MAP) Pulse Ox O2 Delivery O2 Flow Rate FiO2 07/20/19 04:00 98.2 57 19 157/90 (112) 95 07/20/19 00:00 97.7 90 18 145/83 (103) 95 07/19/19 21:00 Room Air 07/19/19 20:05 63 18 98 Room Air 21 07/19/19 20:00 97.9 103 18 124/94 (104) 96 07/19/19 16:00 67 18 136/79 (98) 98 07/19/19 12:00 98.4 60 18 130/82 (98) 98 07/19/19 09:00 59 18 98 Room Air 21 07/19/19 09:00 Room Air 07/19/19 08:00 98.0 58 18 128/79 (95) 98 Intake and Output 07/19/19 07/20/19 19:00 07:00 Intake Total 2275 ml 670 ml Balance 2275 ml 670 ml Intake Oral 800 ml IV Total 1475 ml 670 ml # Voids 7 General Appearance: WD/WN HEENT: normocephalic, atraumatic Respiratory/Chest: chest wall non-tender, lungs clear Cardiovascular: normal peripheral pulses, normal rate Abdomen: normal bowel sounds, no organomegaly Genitourinary: normal external genitalia Microbiology Date/Time Source Procedure Growth Status 07/18/19 12:00 Blood Blood Culture - Preliminary NO GROWTH AFTER 24 HOURS Resulted 07/18/19 11:50 Blood Blood Culture - Preliminary NO GROWTH AFTER 24 HOURS Resulted 07/18/19 13:23 Nasal Nares MRSA Culture - Final NO METHICILLIN RESISTANT STAPH AUREUS... Complete 07/18/19 12:00 Urine,Clean Catch Urine Culture - Final Enterococcus Faecalis Complete Laboratory Tests 07/20/19 05:40: White Blood Count 4.2L, Red Blood Count 4.87, Hemoglobin 14.4, Hematocrit 42.6, Mean Corpuscular Volume 87, Mean Corpuscular Hemoglobin 29.6, Mean Corpuscular Hemoglobin Concent 33.8, Red Cell Distribution Width 12.9, Platelet Count 106L, Mean Platelet Volume 8.8, Neutrophils (%) (Auto) 59.2, Lymphocytes (%) (Auto) 27.0, Monocytes (%) (Auto) 11.1H, Eosinophils (%) (Auto) 1.9, Basophils (%) ( Auto) 0.7, Erythrocyte Sedimentation Rate [Pending], Sodium Level 150H, Potassium Level 3.2L, Chloride Level 117H, Carbon Dioxide Level 25, Anion Gap 8 , Blood Urea Nitrogen 16, Creatinine 1.0, Estimat Glomerular Filtration Rate , Glucose Level 124H, Calcium Level 8.3L, Phosphorus Level 2.2L, Magnesium Level 1.8, Total Bilirubin 0.8, Aspartate Amino Transf (AST/SGOT) 28, Alanine Aminotransferase (ALT/SGPT) 27, Alkaline Phosphatase 93, C-Reactive Protein, Quantitative 2.9H, Total Protein 6.5, Albumin 2.6L, Globulin 3.9, Albumin/ Globulin Ratio 0.7L Current Medications Medications (Trade) Dose Ordered Sig/Monisha Route PRN Reason Start Time Stop Time Status Last Admin Dose Admin Acetaminophen (Tylenol) 650 mg Q4H PRN ORAL fever (T>100.5F) 07/18/19 14:00 08/17/19 13:59 Albuterol/ Ipratropium (Albuterol/ Ipratropium) 3 ml Q4H PRN HHN Shortness of Breath 07/18/19 14:00 07/23/19 13:59 Cefepime HCl 2 gm/ Dextrose 110 ml @ 220 mls/hr Q12HR@0400,1600 IV 07/19/19 04:00 07/26/19 03:59 07/20/19 04:48 Dextrose 1,000 ml @ 75 mls/hr [id number] IV 07/19/19 13:27 08/18/19 13:26 07/20/19 04:49 Donepezil HCl (Aricept) 10 mg DAILY ORAL 07/19/19 09:00 08/18/19 08:59 07/19/19 12:02 Morphine Sulfate (Morphine Sulfate) 2 mg Q4H PRN IVP Moderate Pain (Pain Scale 4-6) 07/18/19 14:00 07/25/19 13:59 Ondansetron HCl (Zofran) 4 mg Q6H PRN IVP Nausea & Vomiting 07/18/19 14:00 08/17/19 13:59 Phenazopyridine HCl (Pyridium) 100 mg DAILYPRN PRN ORAL dysuria 07/18/19 14:00 08/17/19 13:59 Polyethylene Glycol (Miralax) 17 gm DAILYPRN PRN ORAL Constipation 07/18/19 14:00 08/17/19 13:59 Vancomycin HCl (Vanco rx to dose) 1 ea DAILY PRN MISC PER RX PROTOCOL 07/18/19 15:00 08/17/19 14:59 Vancomycin HCl/ Dextrose 275 ml @ 137.5 mls/ hr Q24H IVPB 07/19/19 14:00 07/24/19 13:59 07/19/19 14:32 Eladio Scott MD Jul 20, 2019 07:52
[2019-07-20 08:00] VITALS: BP 151/98
--- NOTE | 2019-07-20 08:32 | NUR ---
HAND-OFF: Report given to OSCAR FUENTES
[2019-07-20] MEDS ORDERED: Potassium Phosphate 30 MM in Sodium Chloride 550 ML IV ONE (09:00)
[2019-07-20] MEDS: Donepezil 10mg tab ORAL SCH (09:27)
--- NOTE | 2019-07-20 11:37 | Infectious Diseases Prog Note ---
Assessment/Plan Assessment/Plan Assessment: Failure to thrive Low grade fever, sp No leukocytosis Probable UTI : enterococcus -u.a wbc 40-60, nit neg, leuk large; ucx ?Probable pNA -CXR: Retrocardiac infiltrate and possible left basilar pleural fluid JUAN Alzheimer's disease HERON DDD HTN Plan: -Change empiric IV Vancomycin and Cefepime #3 to Augmentin # 1/5 , upon DC will cont Augmentin to complete the course -f/u cx -Monitor CBC/CMP, temperatures -sp cx Subjective Allergies: Coded Allergies: BARBITURATES (Verified Allergy, Unknown, 07/07/16) BENZODIAZEPINES (Verified Allergy, Unknown, 07/07/16) CIPROFLOXACIN (Verified Allergy, Unknown, 07/18/19) DIPHENHYDRAMINE (Verified Allergy, Unknown, 07/07/16) DIVALPROEX SODIUM (Verified Allergy, Unknown, 07/07/16) HALOPERIDOL (Verified Allergy, Unknown, 07/07/16) LACTULOSE (Verified Allergy, Unknown, 07/18/19) LEVOFLOXACIN (Verified Allergy, Unknown, 07/18/19) LITHIUM (Verified Allergy, Unknown, 07/07/16) LORATADINE (Verified Allergy, Unknown, 07/07/16) LORAZEPAM (Verified Allergy, Unknown, 07/18/19) MEMANTINE (Verified Allergy, Unknown, 07/18/19) OLANZAPINE (Verified Allergy, Unknown, 07/07/16) PENICILLINS (Verified Allergy, Unknown, 07/07/16) QUETIAPINE (Verified Allergy, Unknown, 07/07/16) ZOLPIDEM (Verified Allergy, Unknown, 07/07/16) Uncoded Allergies: ANTIHISTAMINE (Allergy, Unknown, 07/07/16) Subjective sleeping comfortably afebrile Objective Vital Signs Last 24 Hour Vital Signs Date Time Temp Pulse Resp B/P (MAP) Pulse Ox O2 Delivery O2 Flow Rate FiO2 07/20/19 09:00 Room Air 07/20/19 08:00 98.2 66 18 151/98 (115) 96 07/20/19 04:00 98.2 57 19 157/90 (112) 95 07/20/19 00:00 97.7 90 18 145/83 (103) 95 07/19/19 21:00 Room Air 07/19/19 20:05 63 18 98 Room Air 21 07/19/19 20:00 97.9 103 18 124/94 (104) 96 07/19/19 16:00 67 18 136/79 (98) 98 07/19/19 12:00 98.4 60 18 130/82 (98) 98 Height (Feet): 5 Height (Inches): 11.00 Weight (Pounds): 185 Respiratory/Chest: normal breath sounds Cardiovascular: regular rhythm Abdomen: no organomegaly Microbiology Date/Time Source Procedure Growth Status 07/18/19 12:00 Blood Blood Culture - Preliminary NO GROWTH AFTER 24 HOURS Resulted 07/18/19 11:50 Blood Blood Culture - Preliminary NO GROWTH AFTER 24 HOURS Resulted 07/18/19 13:23 Nasal Nares MRSA Culture - Final NO METHICILLIN RESISTANT STAPH AUREUS... Complete 07/18/19 12:00 Urine,Clean Catch Urine Culture - Final Enterococcus Faecalis Complete 07/18/19 13:23 Rectum VRE Culture - Final NO VANCOMYCIN RESISTANT ENTEROCOCCUS ... Complete Laboratory Tests Test 07/20/19 05:40 White Blood Count 4.2 K/UL (4.8-10.8) L Red Blood Count 4.87 M/UL (4.70-6.10) Hemoglobin 14.4 G/DL (14.2-18.0) Hematocrit 42.6 % (42.0-52.0) Mean Corpuscular Volume 87 FL (80-99) Mean Corpuscular Hemoglobin 29.6 PG (27.0-31.0) Mean Corpuscular Hemoglobin Concent 33.8 G/DL (32.0-36.0) Red Cell Distribution Width 12.9 % (11.6-14.8) Platelet Count 106 K/UL (150-450) L Mean Platelet Volume 8.8 FL (6.5-10.1) Neutrophils (%) (Auto) 59.2 % (45.0-75.0) Lymphocytes (%) (Auto) 27.0 % (20.0-45.0) Monocytes (%) (Auto) 11.1 % (1.0-10.0) H Eosinophils (%) (Auto) 1.9 % (0.0-3.0) Basophils (%) (Auto) 0.7 % (0.0-2.0) Erythrocyte Sedimentation Rate 23 MM/HR (0-20) H Sodium Level 150 MMOL/L (136-145) H Potassium Level 3.2 MMOL/L (3.5-5.1) L Chloride Level 117 MMOL/L (98-107) H Carbon Dioxide Level 25 MMOL/L (21-32) Anion Gap 8 mmol/L (5-15) Blood Urea Nitrogen 16 mg/dL (7-18) Creatinine 1.0 MG/DL (0.55-1.30) Estimat Glomerular Filtration Rate mL/min (>60) Glucose Level 124 MG/DL (74-106) H Calcium Level 8.3 MG/DL (8.5-10.1) L Phosphorus Level 2.2 MG/DL (2.5-4.9) L Magnesium Level 1.8 MG/DL (1.8-2.4) Total Bilirubin 0.8 MG/DL (0.2-1.0) Aspartate Amino Transf (AST/SGOT) 28 U/L (15-37) Alanine Aminotransferase (ALT/SGPT) 27 U/L (12-78) Alkaline Phosphatase 93 U/L (46-116) C-Reactive Protein, Quantitative 2.9 mg/dL (0.00-0.90) H Total Protein 6.5 G/DL (6.4-8.2) Albumin 2.6 G/DL (3.4-5.0) L Globulin 3.9 g/dL Albumin/Globulin Ratio 0.7 (1.0-2.7) L Current Medications Medications (Trade) Dose Ordered Sig/Monisha Route PRN Reason Start Time Stop Time Status Last Admin Dose Admin Acetaminophen (Tylenol) 650 mg Q4H PRN ORAL fever (T>100.5F) 07/18/19 14:00 08/17/19 13:59 Albuterol/ Ipratropium (Albuterol/ Ipratropium) 3 ml Q4H PRN HHN Shortness of Breath 07/18/19 14:00 07/23/19 13:59 Cefepime HCl 2 gm/ Dextrose 110 ml @ 220 mls/hr Q12HR@0400,1600 IV 07/19/19 04:00 07/26/19 03:59 07/20/19 04:48 Dextrose 1,000 ml @ 75 mls/hr [id number] IV 07/19/19 13:27 08/18/19 13:26 07/20/19 04:49 Donepezil HCl (Aricept) 10 mg DAILY ORAL 07/19/19 09:00 08/18/19 08:59 07/20/19 09:27 Morphine Sulfate (Morphine Sulfate) 2 mg Q4H PRN IVP Moderate Pain (Pain Scale 4-6) 07/18/19 14:00 07/25/19 13:59 Ondansetron HCl (Zofran) 4 mg Q6H PRN IVP Nausea & Vomiting 07/18/19 14:00 08/17/19 13:59 Phenazopyridine HCl (Pyridium) 100 mg DAILYPRN PRN ORAL dysuria 07/18/19 14:00 08/17/19 13:59 Polyethylene Glycol (Miralax) 17 gm DAILYPRN PRN ORAL Constipation 07/18/19 14:00 08/17/19 13:59 Potassium Phosphate 30 mm/ Sodium Chloride 560 ml @ 93.333 mls/ hr ONCE ONCE IV 07/20/19 09:00 07/20/19 14:59 07/20/19 09:28 Vancomycin HCl (Vanco rx to dose) 1 ea DAILY PRN MISC PER RX PROTOCOL 07/18/19 15:00 08/17/19 14:59 Vancomycin HCl/ Dextrose 275 ml @ 137.5 mls/ hr Q24H IVPB 07/19/19 14:00 07/24/19 13:59 07/19/19 14:32 Jacky Isabel MD Jul 20, 2019 11:37
[2019-07-20 12:00] VITALS: BP 139/86
--- NOTE | 2019-07-20 12:16 | Infectious Diseases Prog Note ---
Assessment/Plan Assessment/Plan Assessment: Failure to thrive Low grade fever, sp No leukocytosis Probable UTI : enterococcus -u.a wbc 40-60, nit neg, leuk large; ucx ?Probable pNA -CXR: Retrocardiac infiltrate and possible left basilar pleural fluid JUAN Alzheimer's disease HERON DDD HTN Plan: -Cont pt on empiric IV Vancomycin and Cefepime #3/ 7 , ok to DC w cont of AB Rx -f/u cx -Monitor CBC/CMP, temperatures -sp cx Subjective Allergies: Coded Allergies: BARBITURATES (Verified Allergy, Unknown, 07/07/16) BENZODIAZEPINES (Verified Allergy, Unknown, 07/07/16) CIPROFLOXACIN (Verified Allergy, Unknown, 07/18/19) DIPHENHYDRAMINE (Verified Allergy, Unknown, 07/07/16) DIVALPROEX SODIUM (Verified Allergy, Unknown, 07/07/16) HALOPERIDOL (Verified Allergy, Unknown, 07/07/16) LACTULOSE (Verified Allergy, Unknown, 07/18/19) LEVOFLOXACIN (Verified Allergy, Unknown, 07/18/19) LITHIUM (Verified Allergy, Unknown, 07/07/16) LORATADINE (Verified Allergy, Unknown, 07/07/16) LORAZEPAM (Verified Allergy, Unknown, 07/18/19) MEMANTINE (Verified Allergy, Unknown, 07/18/19) OLANZAPINE (Verified Allergy, Unknown, 07/07/16) PENICILLINS (Verified Allergy, Unknown, 07/07/16) QUETIAPINE (Verified Allergy, Unknown, 07/07/16) ZOLPIDEM (Verified Allergy, Unknown, 07/07/16) Uncoded Allergies: ANTIHISTAMINE (Allergy, Unknown, 07/07/16) Subjective sleeping comfortably afebrile Objective Vital Signs Last 24 Hour Vital Signs Date Time Temp Pulse Resp B/P (MAP) Pulse Ox O2 Delivery O2 Flow Rate FiO2 07/20/19 12:00 98.4 58 18 139/86 (103) 96 07/20/19 09:00 Room Air 07/20/19 08:00 98.2 66 18 151/98 (115) 96 07/20/19 04:00 98.2 57 19 157/90 (112) 95 07/20/19 00:00 97.7 90 18 145/83 (103) 95 07/19/19 21:00 Room Air 07/19/19 20:05 63 18 98 Room Air 21 07/19/19 20:00 97.9 103 18 124/94 (104) 96 07/19/19 16:00 67 18 136/79 (98) 98 Height (Feet): 5 Height (Inches): 11.00 Weight (Pounds): 185 HEENT: mucous membranes moist Respiratory/Chest: no accessory muscle use Cardiovascular: regular rhythm Abdomen: no organomegaly Microbiology Date/Time Source Procedure Growth Status 07/18/19 12:00 Blood Blood Culture - Preliminary NO GROWTH AFTER 24 HOURS Resulted 07/18/19 11:50 Blood Blood Culture - Preliminary NO GROWTH AFTER 24 HOURS Resulted 07/18/19 13:23 Nasal Nares MRSA Culture - Final NO METHICILLIN RESISTANT STAPH AUREUS... Complete 07/18/19 12:00 Urine,Clean Catch Urine Culture - Final Enterococcus Faecalis Complete 07/18/19 13:23 Rectum VRE Culture - Final NO VANCOMYCIN RESISTANT ENTEROCOCCUS ... Complete Laboratory Tests Test 07/20/19 05:40 White Blood Count 4.2 K/UL (4.8-10.8) L Red Blood Count 4.87 M/UL (4.70-6.10) Hemoglobin 14.4 G/DL (14.2-18.0) Hematocrit 42.6 % (42.0-52.0) Mean Corpuscular Volume 87 FL (80-99) Mean Corpuscular Hemoglobin 29.6 PG (27.0-31.0) Mean Corpuscular Hemoglobin Concent 33.8 G/DL (32.0-36.0) Red Cell Distribution Width 12.9 % (11.6-14.8) Platelet Count 106 K/UL (150-450) L Mean Platelet Volume 8.8 FL (6.5-10.1) Neutrophils (%) (Auto) 59.2 % (45.0-75.0) Lymphocytes (%) (Auto) 27.0 % (20.0-45.0) Monocytes (%) (Auto) 11.1 % (1.0-10.0) H Eosinophils (%) (Auto) 1.9 % (0.0-3.0) Basophils (%) (Auto) 0.7 % (0.0-2.0) Erythrocyte Sedimentation Rate 23 MM/HR (0-20) H Sodium Level 150 MMOL/L (136-145) H Potassium Level 3.2 MMOL/L (3.5-5.1) L Chloride Level 117 MMOL/L (98-107) H Carbon Dioxide Level 25 MMOL/L (21-32) Anion Gap 8 mmol/L (5-15) Blood Urea Nitrogen 16 mg/dL (7-18) Creatinine 1.0 MG/DL (0.55-1.30) Estimat Glomerular Filtration Rate mL/min (>60) Glucose Level 124 MG/DL (74-106) H Calcium Level 8.3 MG/DL (8.5-10.1) L Phosphorus Level 2.2 MG/DL (2.5-4.9) L Magnesium Level 1.8 MG/DL (1.8-2.4) Total Bilirubin 0.8 MG/DL (0.2-1.0) Aspartate Amino Transf (AST/SGOT) 28 U/L (15-37) Alanine Aminotransferase (ALT/SGPT) 27 U/L (12-78) Alkaline Phosphatase 93 U/L (46-116) C-Reactive Protein, Quantitative 2.9 mg/dL (0.00-0.90) H Total Protein 6.5 G/DL (6.4-8.2) Albumin 2.6 G/DL (3.4-5.0) L Globulin 3.9 g/dL Albumin/Globulin Ratio 0.7 (1.0-2.7) L Current Medications Medications (Trade) Dose Ordered Sig/Monisha Route PRN Reason Start Time Stop Time Status Last Admin Dose Admin Acetaminophen (Tylenol) 650 mg Q4H PRN ORAL fever (T>100.5F) 07/18/19 14:00 08/17/19 13:59 Albuterol/ Ipratropium (Albuterol/ Ipratropium) 3 ml Q4H PRN HHN Shortness of Breath 07/18/19 14:00 07/23/19 13:59 Cefepime HCl 2 gm/ Dextrose 110 ml @ 220 mls/hr Q12HR@0400,1600 IV 07/19/19 04:00 07/26/19 03:59 07/20/19 04:48 Dextrose 1,000 ml @ 75 mls/hr [id number] IV 07/19/19 13:27 08/18/19 13:26 07/20/19 04:49 Donepezil HCl (Aricept) 10 mg DAILY ORAL 07/19/19 09:00 08/18/19 08:59 07/20/19 09:27 Morphine Sulfate (Morphine Sulfate) 2 mg Q4H PRN IVP Moderate Pain (Pain Scale 4-6) 07/18/19 14:00 07/25/19 13:59 Ondansetron HCl (Zofran) 4 mg Q6H PRN IVP Nausea & Vomiting 07/18/19 14:00 08/17/19 13:59 Phenazopyridine HCl (Pyridium) 100 mg DAILYPRN PRN ORAL dysuria 07/18/19 14:00 08/17/19 13:59 Polyethylene Glycol (Miralax) 17 gm DAILYPRN PRN ORAL Constipation 07/18/19 14:00 08/17/19 13:59 Potassium Phosphate 30 mm/ Sodium Chloride 560 ml @ 93.333 mls/ hr ONCE ONCE IV 07/20/19 09:00 07/20/19 14:59 07/20/19 09:28 Vancomycin HCl (Vanco rx to dose) 1 ea DAILY PRN MISC PER RX PROTOCOL 07/18/19 15:00 08/17/19 14:59 Vancomycin HCl/ Dextrose 275 ml @ 137.5 mls/ hr Q24H IVPB 07/19/19 14:00 07/24/19 13:59 07/19/19 14:32 Jacky Isabel MD Jul 20, 2019 12:16
[2019-07-20] MEDS: Vancomycin 1.5gm Premix IVPB SCH (14:45)
[2019-07-20 16:00] VITALS: BP 148/98
--- NOTE | 2019-07-20 19:19 | NUR ---
HAND-OFF: Report given to JYOTI MOORE.
[2019-07-20 20:00] VITALS: BP 101/74
--- NOTE | 2019-07-20 20:39 | NUR ---
NURSE NOTES: Patient in bed, awake, confused. Bed in low and locked position. Provided safe environment. Kept clean and comfortable. Patient had a bowel movement. Abdomen is soft and non distended. Iv site noted. Respiration is even and unlabored. No s/s of pain or discomfort noted. Will continue plan of care. Call light is at bedside.
[2019-07-21] VITALS: BP 105/83
[2019-07-21] MEDS: Cefepime HCl 2 GM in D5W 110 ML IV SCH ×2 (03:52→16:07)
[2019-07-21 04:00] VITALS: BP 134/79
--- NOTE | 2019-07-21 07:10 | NUR ---
NURSE NOTES: Report received from Adrián MOORE, rounds made. Patient resting in semi-fowlers position in bed, with on and off movement to BLE, attempting to get out of bed. Bilateral wrist restraints on, skin warm/normal skin tone. No distress on RA. Pulses palpable. Responds to name. Unable to comprehend further instructions or teaching. Side rails up x4. IV (D5W) infusing at 75 ml/hr to RAC (wrapped with kerlix, intact). Bed in lowest position. Call light in reach. Will continue to monitor. Patient remains safe. Addendum: 07/21/19 at 1110 by Drea Begum RN PO fluids provided, patient tolerated well.
[2019-07-21 08:00] VITALS: BP 160/72
[2019-07-21] MEDS: Donepezil 10mg tab ORAL SCH (09:46)
--- NOTE | 2019-07-21 09:50 | NUR ---
NURSE NOTES: Dr. Scott notified of K 3.2 and Phosphorus 2.2, order received, see order.
[2019-07-21] MEDS ORDERED: Potassium Phosphate 30 MM in NS 275 ML IV ONE (10:30)
--- NOTE | 2019-07-21 11:00 | NUR ---
NURSE NOTES: Spoke to Pharmacy regarding Potassium Phosphate order, confirmed it is compatible with D5W IVF and it's okay to hang together, see IV spreadsheet and eMAR. Bilateral SCDs applied. Will continue to monitor. Addendum: 07/21/19 at 1832 by Drea Begum RN Removed SCD, awaiting on VD testing to be done first.
[2019-07-21 12:00] VITALS: BP 155/98
[2019-07-21 16:00] VITALS: BP 155/103
[2019-07-21] MEDS: Vancomycin 750mg/NS 275ml IVPB SCH ×2 (17:30)
--- NOTE | 2019-07-21 17:45 | NUR ---
NURSE NOTES: At 1642, Dr. Scott notified that patient is agitated and trying to get out of bed, even with bilateral wrist restraints. Ativan IV PRN ordered, however, order was cancelled due to patient extensive allergy list, Dr. Sctot's notified, then 4 point restraint was ordered. Nursing a p supervisor notified, order was cancelled due to not allowed to use 4 point restraints, Dr. Scott notified. Patient's IV became leaking and patient had BM. Unable to restart IV or clean patient/provide skin care due to patient being combative. Dr. Scott notified, order received for waist restraint, see order, nursing a p supervisor notified, due to central supply closed, will endorse to next shift to get evans from nursing a p supervisor for waist restraint, if needed. Message left for Dr. Baker regarding above and if she would like to switch IV antibiotics to PO. Pharmacy notified, that IV Vanco and Maxipime will not be given due to no IV access and that awaiting on Dr. Baker orders. Will endorse above to night nurse.
--- NOTE | 2019-07-21 19:15 | NUR ---
NURSE NOTES: Message left for Dr. Scott, for order for follow up labs for tomorrow to check electrolytes. Will endorse to shift nurse manager nurse.
--- NOTE | 2019-07-21 19:44 | NUR ---
HAND-OFF: Report given to Adrián MOORE. Endorsed that no IV access,patient soiled and agitated (has improved a little bit) and waiting on orders from Dr. Scott for follow up labs.
[2019-07-21 20:00] VITALS: BP 156/98
--- NOTE | 2019-07-21 20:01 | NUR ---
NURSE NOTES: Patient in bed, awake, confused. Skin is warm and dry to touch. Abdomen is soft. Respiration is even and unlabored. No iv site at the moment, infiltrated. Bed in low and locked position. Soft wrist restraints noted, intact skin. call light is at bedside. Will continue plan of care.
--- NOTE | 2019-07-21 23:25 | Pulmonology Progress Note ---
Assessment/Plan Problems: (1) ATN (acute tubular necrosis) (2) Anemia (3) HTN (hypertension) (4) Obstructive sleep apnea (5) Hypernatremia (6) Alzheimer's dementia with behavioral disturbance Assessment/Plan no new complains improving less agitated check electrolytes respiratory treatment titrate fio2 to sat of 92% dvt prophylaxis. Subjective ROS Limited/Unobtainable: No Constitutional: Reports: no symptoms HEENT: Repors: no symptoms Respiratory: Reports: no symptoms Allergies: Coded Allergies: BARBITURATES (Verified Allergy, Unknown, 07/07/16) BENZODIAZEPINES (Verified Allergy, Unknown, 07/07/16) CIPROFLOXACIN (Verified Allergy, Unknown, 07/18/19) DIPHENHYDRAMINE (Verified Allergy, Unknown, 07/07/16) DIVALPROEX SODIUM (Verified Allergy, Unknown, 07/07/16) HALOPERIDOL (Verified Allergy, Unknown, 07/07/16) LACTULOSE (Verified Allergy, Unknown, 07/18/19) LEVOFLOXACIN (Verified Allergy, Unknown, 07/18/19) LITHIUM (Verified Allergy, Unknown, 07/07/16) LORATADINE (Verified Allergy, Unknown, 07/07/16) LORAZEPAM (Verified Allergy, Unknown, 07/18/19) MEMANTINE (Verified Allergy, Unknown, 07/18/19) OLANZAPINE (Verified Allergy, Unknown, 07/07/16) PENICILLINS (Verified Allergy, Unknown, 07/07/16) QUETIAPINE (Verified Allergy, Unknown, 07/07/16) ZOLPIDEM (Verified Allergy, Unknown, 07/07/16) Uncoded Allergies: ANTIHISTAMINE (Allergy, Unknown, 07/07/16) Objective Last 24 Hour Vital Signs Date Time Temp Pulse Resp B/P (MAP) Pulse Ox O2 Delivery O2 Flow Rate FiO2 07/21/19 21:00 Room Air 07/21/19 20:52 84 16 94 Room Air 21 07/21/19 20:00 98.0 100 20 156/98 (117) 96 07/21/19 16:00 97.2 109 18 155/103 (120) 95 07/21/19 12:00 97.4 64 20 155/98 (117) 98 07/21/19 09:00 Room Air 07/21/19 08:00 98.1 72 19 160/72 (101) 97 07/21/19 04:00 97.3 86 20 134/79 (97) 97 07/21/19 00:00 98.2 62 16 105/83 (90) 92 Intake and Output 07/20/19 07/21/19 19:00 07:00 Intake Total 2444.998 ml 925 ml Output Total 450 ml Balance 1994.998 ml 925 ml Intake Oral 600 ml 250 ml IV Total 1844.998 ml 675 ml Output Urine Total 450 ml # Voids 5 # Bowel Movements 3 6 General Appearance: WD/WN HEENT: normocephalic, atraumatic Respiratory/Chest: chest wall non-tender, lungs clear Cardiovascular: normal peripheral pulses, normal rate Abdomen: normal bowel sounds, soft, non tender Genitourinary: normal external genitalia Extremities: no cyanosis Skin: no ulcers 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 Laboratory Tests 07/21/19 13:40: Vancomycin Level Trough 8.9 Current Medications Medications (Trade) Dose Ordered Sig/Monisha Route PRN Reason Start Time Stop Time Status Last Admin Dose Admin Acetaminophen (Tylenol) 650 mg Q4H PRN ORAL fever (T>100.5F) 07/18/19 14:00 08/17/19 13:59 Albuterol/ Ipratropium (Albuterol/ Ipratropium) 3 ml Q4H PRN HHN Shortness of Breath 07/18/19 14:00 07/23/19 13:59 Cefepime HCl 2 gm/ Dextrose 110 ml @ 220 mls/hr Q12HR@0400,1600 IV 07/19/19 04:00 07/26/19 03:59 07/21/19 16:07 Dextrose 1,000 ml @ 75 mls/hr [id number] IV 07/19/19 13:27 08/18/19 13:26 07/21/19 03:52 Donepezil HCl (Aricept) 10 mg DAILY ORAL 07/19/19 09:00 08/18/19 08:59 07/21/19 09:46 Morphine Sulfate (Morphine Sulfate) 2 mg Q4H PRN IVP Moderate Pain (Pain Scale 4-6) 07/18/19 14:00 07/25/19 13:59 Ondansetron HCl (Zofran) 4 mg Q6H PRN IVP Nausea & Vomiting 07/18/19 14:00 08/17/19 13:59 Phenazopyridine HCl (Pyridium) 100 mg DAILYPRN PRN ORAL dysuria 07/18/19 14:00 08/17/19 13:59 Polyethylene Glycol (Miralax) 17 gm DAILYPRN PRN ORAL Constipation 07/18/19 14:00 08/17/19 13:59 Vancomycin HCl (Vanco rx to dose) 1 ea DAILY PRN MISC PER RX PROTOCOL 07/18/19 15:00 08/17/19 14:59 Vancomycin HCl 750 mg/Sodium Chloride 275 ml @ 183.333 mls/hr Q12H IVPB 07/21/19 17:30 07/26/19 17:29 Eladio Scott MD Jul 21, 2019 23:25
[2019-07-22] VITALS: BP 139/89
--- NOTE | 2019-07-22 00:22 | NUR ---
NURSE NOTES: Patient noted with pain, flacc scale. Given PRN pain medication as ordered.
[2019-07-22 04:00] VITALS: BP 150/85
[2019-07-22] MEDS: Cefepime HCl 2 GM in D5W 110 ML IV SCH ×2 (04:26→17:09)
[2019-07-22] MEDS: Vancomycin 750mg/NS 275ml IVPB SCH ×4 (05:08→17:49)
--- NOTE | 2019-07-22 07:10 | NUR ---
NURSE NOTES: HANDOFF RECEIVED FROM OSCAR ARAUJO. PATIENT RECEIVED SLEEPING IN BED, PATIENT HAS BILATERAL WRIST RESTRAINTS. NO PHYSICAL SIGNS OF DISTRESS. IV SITE IS RUNNING PRESCRIBED FLUIDS, NO SWELLING OR HEMATOMA NOTED. BED ALARM IS ON AND THE BED IS IN THE LOW AND LOCKED POSITION. PATIENT HAS CALL LIGHT WITHIN REACH. WILL CONTINUE TO MONITOR PATIENT.
--- NOTE | 2019-07-22 07:19 | NUR ---
HAND-OFF: Report given to OSCAR Jiménez.
[2019-07-22 08:00] VITALS: BP 150/83
[2019-07-22] MEDS: Donepezil 10mg tab ORAL SCH (09:17)
[2019-07-22 12:00] VITALS: BP 138/75
--- NOTE | 2019-07-22 12:36 | NUR ---
NURSE NOTES: assisted no Addendum: 07/22/19 at 1238 by Tino Rodgers RN ASSISTED JULIETTE IN CLEANING AND CHANGING THE PATIENT. WHEN REMOVING THE RESTRAINT TO PLACE A CLEAN GOWN ON, PATIENT LASHED OUT TRYING TO PUNCH EITHER ME OR JULIETTE. REASSURED THE PATIENT THAT WE WERE TRYING TO HELP HIM GET CLEAN, BUT PATIENT CONTINUED LASHING OUT.
--- NOTE | 2019-07-22 15:16 | Infectious Diseases Prog Note ---
Assessment/Plan Assessment/Plan Assessment: Failure to thrive Low grade fever, sp No leukocytosis Probable UTI : enterococcus -u.a wbc 40-60, nit neg, leuk large; ucx ?Probable pNA -CXR: Retrocardiac infiltrate and possible left basilar pleural fluid JUAN Alzheimer's disease HERON DDD HTN Plan: -Cont pt on empiric IV Vancomycin and Cefepime #5/ 7 , ok to DC w cont of AB Rx -f/u cx -Monitor CBC/CMP, temperatures -sp cx Subjective Allergies: Coded Allergies: BARBITURATES (Verified Allergy, Unknown, 07/07/16) BENZODIAZEPINES (Verified Allergy, Unknown, 07/07/16) CIPROFLOXACIN (Verified Allergy, Unknown, 07/18/19) DIPHENHYDRAMINE (Verified Allergy, Unknown, 07/07/16) DIVALPROEX SODIUM (Verified Allergy, Unknown, 07/07/16) HALOPERIDOL (Verified Allergy, Unknown, 07/07/16) LACTULOSE (Verified Allergy, Unknown, 07/18/19) LEVOFLOXACIN (Verified Allergy, Unknown, 07/18/19) LITHIUM (Verified Allergy, Unknown, 07/07/16) LORATADINE (Verified Allergy, Unknown, 07/07/16) LORAZEPAM (Verified Allergy, Unknown, 07/18/19) MEMANTINE (Verified Allergy, Unknown, 07/18/19) OLANZAPINE (Verified Allergy, Unknown, 07/07/16) PENICILLINS (Verified Allergy, Unknown, 07/07/16) QUETIAPINE (Verified Allergy, Unknown, 07/07/16) ZOLPIDEM (Verified Allergy, Unknown, 07/07/16) Uncoded Allergies: ANTIHISTAMINE (Allergy, Unknown, 07/07/16) Subjective afebrile no leukcoytosis Objective Vital Signs Last 24 Hour Vital Signs Date Time Temp Pulse Resp B/P (MAP) Pulse Ox O2 Delivery O2 Flow Rate FiO2 07/22/19 12:00 98.0 67 18 138/75 (96) 94 07/22/19 09:00 Room Air 07/22/19 08:00 97.8 60 18 150/83 (105) 95 07/22/19 04:00 99.0 98 20 150/85 (106) 94 07/22/19 00:00 98.2 95 20 139/89 (106) 93 07/21/19 21:00 Room Air 07/21/19 20:52 84 16 94 Room Air 21 07/21/19 20:00 98.0 100 20 156/98 (117) 96 07/21/19 16:00 97.2 109 18 155/103 (120) 95 Height (Feet): 5 Height (Inches): 11.00 Weight (Pounds): 185 Objective General Appearance: WD/WN, no apparent distress Lines, tubes and drains: peripheral, PICC HEENT: normocephalic, atraumatic Neck: non-tender, normal alignment, supple Respiratory/Chest: chest wall non-tender, lungs clear Breasts: no masses Cardiovascular/Chest: normal peripheral pulses Abdomen: normal bowel sounds Genitourinary/Rectal: normal genital exam Extremities: normal range of motion Current Medications Medications (Trade) Dose Ordered Sig/Monisha Route PRN Reason Start Time Stop Time Status Last Admin Dose Admin Acetaminophen (Tylenol) 650 mg Q4H PRN ORAL fever (T>100.5F) 07/18/19 14:00 08/17/19 13:59 Albuterol/ Ipratropium (Albuterol/ Ipratropium) 3 ml Q4H PRN HHN Shortness of Breath 07/18/19 14:00 07/23/19 13:59 Cefepime HCl 2 gm/ Dextrose 110 ml @ 220 mls/hr Q12HR@0400,1600 IV 07/19/19 04:00 07/26/19 03:59 07/22/19 04:26 Dextrose 1,000 ml @ 75 mls/hr [id number] IV 07/19/19 13:27 08/18/19 13:26 07/22/19 09:18 Donepezil HCl (Aricept) 10 mg DAILY ORAL 07/19/19 09:00 08/18/19 08:59 07/22/19 09:17 Morphine Sulfate (Morphine Sulfate) 2 mg Q4H PRN IVP Moderate Pain (Pain Scale 4-6) 07/18/19 14:00 07/25/19 13:59 07/22/19 00:20 Ondansetron HCl (Zofran) 4 mg Q6H PRN IVP Nausea & Vomiting 07/18/19 14:00 08/17/19 13:59 Phenazopyridine HCl (Pyridium) 100 mg DAILYPRN PRN ORAL dysuria 07/18/19 14:00 08/17/19 13:59 Polyethylene Glycol (Miralax) 17 gm DAILYPRN PRN ORAL Constipation 07/18/19 14:00 08/17/19 13:59 Vancomycin HCl (Vanco rx to dose) 1 ea DAILY PRN MISC PER RX PROTOCOL 07/18/19 15:00 08/17/19 14:59 Vancomycin HCl 750 mg/Sodium Chloride 275 ml @ 183.333 mls/hr Q12H IVPB 07/21/19 17:30 07/26/19 17:29 07/22/19 05:08 Gina Baker M.D. Jul 22, 2019 15:16
[2019-07-22 16:00] VITALS: BP 98/56
--- NOTE | 2019-07-22 18:20 | Pulmonology Progress Note ---
Assessment/Plan Problems: (1) ATN (acute tubular necrosis) (2) Anemia (3) HTN (hypertension) (4) Obstructive sleep apnea (5) Hypernatremia (6) Alzheimer's dementia with behavioral disturbance Assessment/Plan comfortable check electrolytes respiratory treatment titrate fio2 to sat of 92% dvt prophylaxis. Subjective ROS Limited/Unobtainable: No Constitutional: Reports: no symptoms HEENT: Repors: no symptoms Respiratory: Reports: no symptoms Allergies: Coded Allergies: BARBITURATES (Verified Allergy, Unknown, 07/07/16) BENZODIAZEPINES (Verified Allergy, Unknown, 07/07/16) CIPROFLOXACIN (Verified Allergy, Unknown, 07/18/19) DIPHENHYDRAMINE (Verified Allergy, Unknown, 07/07/16) DIVALPROEX SODIUM (Verified Allergy, Unknown, 07/07/16) HALOPERIDOL (Verified Allergy, Unknown, 07/07/16) LACTULOSE (Verified Allergy, Unknown, 07/18/19) LEVOFLOXACIN (Verified Allergy, Unknown, 07/18/19) LITHIUM (Verified Allergy, Unknown, 07/07/16) LORATADINE (Verified Allergy, Unknown, 07/07/16) LORAZEPAM (Verified Allergy, Unknown, 07/18/19) MEMANTINE (Verified Allergy, Unknown, 07/18/19) OLANZAPINE (Verified Allergy, Unknown, 07/07/16) PENICILLINS (Verified Allergy, Unknown, 07/07/16) QUETIAPINE (Verified Allergy, Unknown, 07/07/16) ZOLPIDEM (Verified Allergy, Unknown, 07/07/16) Uncoded Allergies: ANTIHISTAMINE (Allergy, Unknown, 07/07/16) Objective Last 24 Hour Vital Signs Date Time Temp Pulse Resp B/P (MAP) Pulse Ox O2 Delivery O2 Flow Rate FiO2 07/22/19 16:00 98.3 78 18 98/56 (70) 95 07/22/19 12:00 98.0 67 18 138/75 (96) 94 07/22/19 09:00 Room Air 07/22/19 08:00 97.8 60 18 150/83 (105) 95 07/22/19 04:00 99.0 98 20 150/85 (106) 94 07/22/19 00:00 98.2 95 20 139/89 (106) 93 07/21/19 21:00 Room Air 07/21/19 20:52 84 16 94 Room Air 21 07/21/19 20:00 98.0 100 20 156/98 (117) 96 Intake and Output 07/21/19 07/22/19 19:00 07:00 Intake Total 911 ml 510.000 ml Balance 911 ml 510.000 ml Intake Oral 236 ml 125 ml IV Total 675 ml 385.000 ml # Voids 3 3 # Bowel Movements 1 3 General Appearance: WD/WN HEENT: normocephalic, atraumatic Respiratory/Chest: chest wall non-tender, lungs clear Cardiovascular: normal peripheral pulses, normal rate Abdomen: normal bowel sounds, no organomegaly Genitourinary: normal external genitalia Extremities: no cyanosis Skin: no rash 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 Lymphatic: no neck adenopathy Current Medications Medications (Trade) Dose Ordered Sig/Monisha Route PRN Reason Start Time Stop Time Status Last Admin Dose Admin Acetaminophen (Tylenol) 650 mg Q4H PRN ORAL fever (T>100.5F) 07/18/19 14:00 08/17/19 13:59 Albuterol/ Ipratropium (Albuterol/ Ipratropium) 3 ml Q4H PRN HHN Shortness of Breath 07/18/19 14:00 07/23/19 13:59 Cefepime HCl 2 gm/ Dextrose 110 ml @ 220 mls/hr Q12HR@0400,1600 IV 07/19/19 04:00 07/26/19 03:59 07/22/19 17:09 Dextrose 1,000 ml @ 75 mls/hr [id number] IV 07/19/19 13:27 08/18/19 13:26 07/22/19 09:18 Donepezil HCl (Aricept) 10 mg DAILY ORAL 07/19/19 09:00 08/18/19 08:59 07/22/19 09:17 Morphine Sulfate (Morphine Sulfate) 2 mg Q4H PRN IVP Moderate Pain (Pain Scale 4-6) 07/18/19 14:00 07/25/19 13:59 07/22/19 00:20 Ondansetron HCl (Zofran) 4 mg Q6H PRN IVP Nausea & Vomiting 07/18/19 14:00 08/17/19 13:59 Phenazopyridine HCl (Pyridium) 100 mg DAILYPRN PRN ORAL dysuria 07/18/19 14:00 08/17/19 13:59 Polyethylene Glycol (Miralax) 17 gm DAILYPRN PRN ORAL Constipation 07/18/19 14:00 08/17/19 13:59 Vancomycin HCl (Vanco rx to dose) 1 ea DAILY PRN MISC PER RX PROTOCOL 07/18/19 15:00 08/17/19 14:59 Vancomycin HCl 750 mg/Sodium Chloride 275 ml @ 183.333 mls/hr Q12H IVPB 07/21/19 17:30 07/26/19 17:29 07/22/19 17:49 Eladio Scott MD Jul 22, 2019 18:20
[2019-07-22 20:00] VITALS: BP 144/74
--- NOTE | 2019-07-22 20:09 | NUR ---
HAND-OFF: Report given to OSCAR SEWELL.
--- NOTE | 2019-07-22 20:20 | NUR ---
NURSE NOTES: Received report from OSCAR Jiménez. Patient in bed, awake and confused. On room air with no signs of distress or SOB. IV is intact and running fluids at this time. Soft wrist restraints in place for observed device removal. Bed locked and in lowest position. Will continue to monitor the patient closely.
[2019-07-23] VITALS: BP_SYST 132; BP_SYST 153; BP_DIAS 68
[2019-07-23 04:00] VITALS: BP 151/91
[2019-07-23] MEDS: Cefepime HCl 2 GM in D5W 110 ML IV SCH ×2 (04:50→15:44)
[2019-07-23] MEDS: Vancomycin 750mg/NS 275ml IVPB SCH ×4 (05:30→05:41)
--- NOTE | 2019-07-23 07:18 | NUR ---
HAND-OFF: Report given to OSCAR Jiménez.
--- NOTE | 2019-07-23 07:26 | NUR ---
NURSE NOTES: HANDOFF RECEIVED FROM OSCAR SEWELL. PATIENT ALERT AND AWAKE IN BED, IN BILATERAL WRIST RESTRAINTS. IV IS RUNNING PRESCRIBED FLUIDS, IV SITE IS CLEAN, DRY AND INRT Addendum: 07/23/19 at 0728 by Tino Rodgers RN INTACT, BED IN THE LOW AND LOCKED POSITION. WILL CONTINUE TO MONITOR.
[2019-07-23 08:00] VITALS: BP 168/104
--- NOTE | 2019-07-23 08:45 | NUR ---
NURSE NOTES: PATIENTS VITALS ARE NOT STABLE, PULSE OX IN LOW 80S, HEART RATE JUMPING FROM LOW 40'S TO MID 90'S AND BLOOD PRESSURE IS HIGH. 160S/100 PATIENT IS ALERT WITH NO OBVIOUS CHANGE IN MENTAL STATUS. NOTIFIED DR CONNER OF THE CHANGE IN PATIENT CONDITION. AWAITING REPLY. RESPIRATORY THERAPY ARE ON THE FLOOR ADMINISTERING OXYGEN VIA NON-REBREATHER.
[2019-07-23] MEDS: Donepezil 10mg tab ORAL SCH (09:00)
--- NOTE | 2019-07-23 09:38 | NUR ---
NURSE NOTES: DR CONNER GAVE ORDERS TO MOVE PATIENT TO [facility] WITH STAT EKG AND STAT ABG. WILL CONTINUE TO MONITOR PATIENT.
--- NOTE | 2019-07-23 10:17 | Diagnostic Imaging Report ---
Indication: Shortness of breath Technique: One view of the chest Comparison: 07/18/2019 Findings: The heart is enlarged. There is a left-sided pleural effusion. Bilateral perihilar congestive changes persist, appear somewhat increased.. Patient's chin obscure the upper mediastinum Impression: Increasing perihilar congestion, over 5 days Left pleural effusion again demonstrated
--- NOTE | 2019-07-23 11:10 | NUR ---
NURSE NOTES: CONTACTED DR CONNER PATIENT WAS STILL ON THE FLOOR FOR [facility] 2 HOURS BEFORE TRANSFER. ASKED HIM FOR ORDERS FOR THE HIGH BLOOD PRESSURE. ORDERED LASIX BUT THE LAST LAB DRAW SHOWED k LEVEL OF 3.2 SO UBALDO ORDERED STAT CBC. BMP. ORDERS PLACED.
[2019-07-23 11:50] LABS: ANION GAP 10 mmol/L (5-15); BLOOD UREA NITROGEN 7 mg/dL (7-18); CALCIUM 8.5 MG/DL (8.5-10.1); CARBON DIOXIDE 24 MMOL/L (21-32); CHLORIDE 111 MMOL/L (98-107); CREATININE 0.7 MG/DL (0.55-1.30); POTASSIUM 3.1 MMOL/L (3.5-5.1); SODIUM 145 MMOL/L (136-145)
[2019-07-23 11:55] LABS: ALANINE AMINOTRANSFERASE 29 U/L (12-78); ALBUMIN 2.3 G/DL (3.4-5.0); ALBUMIN/GLOBULIN RATIO 0.6 (1.0-2.7); ALKALINE PHOSPHATASE 88 U/L (46-116); ASPARTATE AMINO TRANSFERASE 29 U/L (15-37); BILIRUBIN,TOTAL 0.6 MG/DL (0.2-1.0)
--- NOTE | 2019-07-23 11:59 | NUR ---
HAND-OFF: Report given to OSCAR SILVERIO AT [facility].
[2019-07-23 12:00] VITALS: BP 167/76
--- NOTE | 2019-07-23 12:00 | NUR ---
NURSE NOTES: Report received from OSCAR Jiménez. Pt arrived via hospital bed from 4E. Pt is agitated and confused. Continued bilateral soft restraints. Oriented to name only. Unable to follow commands. Sinus crystal on compliance monitor. On N/C 2L. O2 sat 98%. Cleaned and repositioned pt. Condom catheter reapplied. IV to left hand G24 patent and asymptomatic. Bed in lowest position. Side rails up x3. Bed exit alarm on. Will resume plan of care.
--- NOTE | 2019-07-23 12:23 | Consultation ---
History of Present Illness General Date patient seen: Jul 23, 2019 Chief Complaint: Generalized Weakness Present Illness Allergies: Coded Allergies: BARBITURATES (Verified Allergy, Unknown, 07/07/16) BENZODIAZEPINES (Verified Allergy, Unknown, 07/07/16) CIPROFLOXACIN (Verified Allergy, Unknown, 07/18/19) DIPHENHYDRAMINE (Verified Allergy, Unknown, 07/07/16) DIVALPROEX SODIUM (Verified Allergy, Unknown, 07/07/16) HALOPERIDOL (Verified Allergy, Unknown, 07/07/16) LACTULOSE (Verified Allergy, Unknown, 07/18/19) LEVOFLOXACIN (Verified Allergy, Unknown, 07/18/19) LITHIUM (Verified Allergy, Unknown, 07/07/16) LORATADINE (Verified Allergy, Unknown, 07/07/16) LORAZEPAM (Verified Allergy, Unknown, 07/18/19) MEMANTINE (Verified Allergy, Unknown, 07/18/19) OLANZAPINE (Verified Allergy, Unknown, 07/07/16) PENICILLINS (Verified Allergy, Unknown, 07/07/16) QUETIAPINE (Verified Allergy, Unknown, 07/07/16) ZOLPIDEM (Verified Allergy, Unknown, 07/07/16) Uncoded Allergies: ANTIHISTAMINE (Allergy, Unknown, 07/07/16) Medication History Scheduled Acetaminophen (Acetaminophen), 500 MG ORAL PRN, (Reported) Aspirin* (Aspirin*), 81 MG ORAL DAILY, (Reported) Donepezil Hcl* (Aricept*), 10 MG ORAL DAILY, (Reported) Famotidine (Famotidine), 20 MG ORAL TWICE A DAY, (Reported) Guaifenesin (Mucinex), 600 MG PO DAILY, (Reported) Lisinopril (Lisinopril*), 10 MG ORAL DAILY, (Reported) Magnesium Hydroxide* (Milk Of Magnesia*), 30 ML ORAL DAILY, (Reported) Na Phos,M-B/Na Phos,Di-Ba* (Fleet Enema*), 133 ML RECTAL EVERY 72 HOURS, ( Reported) Pantoprazole* (Protonix*), 40 MG ORAL DAILY, (Reported) Miscellaneous Medications Bisacodyl (Dulcolax), 10 MG RC, (Reported) Patient History Healthcare decision maker Resuscitation status Full Code Advanced Directive on File Physical Exam Last 24 Hour Vital Signs Date Time Temp Pulse Resp B/P (MAP) Pulse Ox O2 Delivery O2 Flow Rate FiO2 07/23/19 09:59 62 18 96 Room Air 21 07/23/19 09:00 Room Air 07/23/19 08:00 97.4 45 14 168/104 (125) 99 07/23/19 04:00 97.5 90 18 151/91 (111) 99 07/23/19 00:00 97.3 61 18 153/68 (96) 95 07/22/19 21:00 Room Air 07/22/19 20:10 64 16 95 Room Air 21 07/22/19 20:00 97.0 62 20 144/74 (97) 95 07/22/19 16:00 98.3 78 18 98/56 (70) 95 Intake and Output 07/22/19 07/23/19 19:00 07:00 Intake Total 480 ml 600 ml Output Total 450 ml Balance 480 ml 150 ml Intake Oral 480 ml IV Total 600 ml Output Urine Total 450 ml # Voids 3 1 Laboratory Tests Test 07/23/19 09:45 07/23/19 10:50 Arterial Blood pH 7.500 (7.350-7.450) Arterial Blood Partial Pressure CO2 33.4 mmHg (35.0-45.0) L Arterial Blood Partial Pressure O2 340.7 mmHg (75.0-100.0) H Arterial Blood HCO3 25.5 mmol/L (22.0-26.0) Arterial Blood Oxygen Saturation 99.1 % (95-100) Arterial Blood Base Excess 2.7 (-2-2) H Mhiai Test Positive Sodium Level 145 MMOL/L (136-145) Potassium Level 3.1 MMOL/L (3.5-5.1) L Chloride Level 111 MMOL/L (98-107) H Carbon Dioxide Level 24 MMOL/L (21-32) Anion Gap 10 mmol/L (5-15) Blood Urea Nitrogen 7 mg/dL (7-18) Creatinine 0.7 MG/DL (0.55-1.30) Estimat Glomerular Filtration Rate mL/min (>60) Glucose Level 126 MG/DL (74-106) H Calcium Level 8.5 MG/DL (8.5-10.1) Total Bilirubin 0.6 MG/DL (0.2-1.0) Aspartate Amino Transf (AST/SGOT) 29 U/L (15-37) Alanine Aminotransferase (ALT/SGPT) 29 U/L (12-78) Alkaline Phosphatase 88 U/L (46-116) Total Protein 6.2 G/DL (6.4-8.2) L Albumin 2.3 G/DL (3.4-5.0) L Globulin 3.9 g/dL Albumin/Globulin Ratio 0.6 (1.0-2.7) L Height (Feet): 5 Height (Inches): 11.00 Weight (Pounds): 185 Medications Current Medications Medications (Trade) Dose Ordered Sig/Monisha Route PRN Reason Start Time Stop Time Status Last Admin Dose Admin Acetaminophen (Tylenol) 650 mg Q4H PRN ORAL fever (T>100.5F) 07/18/19 14:00 08/17/19 13:59 Albuterol/ Ipratropium (Albuterol/ Ipratropium) 3 ml Q4H PRN HHN Shortness of Breath 07/18/19 14:00 07/23/19 13:59 Cefepime HCl 2 gm/ Dextrose 110 ml @ 220 mls/hr Q12HR@0400,1600 IV 07/19/19 04:00 07/26/19 03:59 07/23/19 04:50 Dextrose 1,000 ml @ 75 mls/hr [id number] IV 07/19/19 13:27 08/18/19 13:26 07/22/19 21:43 Donepezil HCl (Aricept) 10 mg DAILY ORAL 07/19/19 09:00 08/18/19 08:59 07/22/19 09:17 Morphine Sulfate (Morphine Sulfate) 2 mg Q4H PRN IVP Moderate Pain (Pain Scale 4-6) 07/18/19 14:00 07/25/19 13:59 07/22/19 00:20 Ondansetron HCl (Zofran) 4 mg Q6H PRN IVP Nausea & Vomiting 07/18/19 14:00 08/17/19 13:59 Phenazopyridine HCl (Pyridium) 100 mg DAILYPRN PRN ORAL dysuria 07/18/19 14:00 08/17/19 13:59 Polyethylene Glycol (Miralax) 17 gm DAILYPRN PRN ORAL Constipation 07/18/19 14:00 08/17/19 13:59 Vancomycin HCl (Vanco rx to dose) 1 ea DAILY PRN MISC PER RX PROTOCOL 07/18/19 15:00 08/17/19 14:59 Vancomycin HCl 750 mg/Sodium Chloride 275 ml @ 183.333 mls/hr Q12H IVPB 07/21/19 17:30 07/26/19 17:29 07/23/19 05:41 Assessment/Plan Assessment/Plan: Abx: IV Vancomycin 07/18- Cefepime 07/18- Assessment: Failure to thrive Low grade fever No leukocytosis Probable UTI -u.a wbc 40-60, nit neg, leuk large; ucx ?Probable pNA -CXR: Retrocardiac infiltrate and possible left basilar pleural fluid JUAN Alzheimer's disease HERON DDD HTN Plan: -Continue empiric IV Vancomycin and Cefepime #1 for now pending cultures -f/u cx -Monitor CBC/CMP, temperatures Thank you for this consultation. Will continue to follow along with you. Discussed with Gina Ureña M.D. Jul 23, 2019 12:23
--- NOTE | 2019-07-23 12:27 | Infectious Diseases Prog Note ---
Assessment/Plan Assessment/Plan Assessment: Failure to thrive Low grade fever, sp No leukocytosis Probable UTI : -u.a wbc 40-60, nit neg, leuk large; ucx enterococcus fecalis (S PNC, Vancomycin) -Bcx NTD ?Probable pNA -CXR: Retrocardiac infiltrate and possible left basilar pleural fluid JUAN, SP Alzheimer's disease HERON DDD HTN Plan: -Cont pt on empiric IV Vancomycin and Cefepime #6/ 7 , ok to DC w cont of AB Rx -f/u cx -Monitor CBC/CMP, temperatures -sp cx Subjective Allergies: Coded Allergies: BARBITURATES (Verified Allergy, Unknown, 07/07/16) BENZODIAZEPINES (Verified Allergy, Unknown, 07/07/16) CIPROFLOXACIN (Verified Allergy, Unknown, 07/18/19) DIPHENHYDRAMINE (Verified Allergy, Unknown, 07/07/16) DIVALPROEX SODIUM (Verified Allergy, Unknown, 07/07/16) HALOPERIDOL (Verified Allergy, Unknown, 07/07/16) LACTULOSE (Verified Allergy, Unknown, 07/18/19) LEVOFLOXACIN (Verified Allergy, Unknown, 07/18/19) LITHIUM (Verified Allergy, Unknown, 07/07/16) LORATADINE (Verified Allergy, Unknown, 07/07/16) LORAZEPAM (Verified Allergy, Unknown, 07/18/19) MEMANTINE (Verified Allergy, Unknown, 07/18/19) OLANZAPINE (Verified Allergy, Unknown, 07/07/16) PENICILLINS (Verified Allergy, Unknown, 07/07/16) QUETIAPINE (Verified Allergy, Unknown, 07/07/16) ZOLPIDEM (Verified Allergy, Unknown, 07/07/16) Uncoded Allergies: ANTIHISTAMINE (Allergy, Unknown, 07/07/16) Subjective afebrile no leukcoytosis Bcx NTD Objective Vital Signs Last 24 Hour Vital Signs Date Time Temp Pulse Resp B/P (MAP) Pulse Ox O2 Delivery O2 Flow Rate FiO2 07/23/19 09:59 62 18 96 Room Air 21 07/23/19 09:00 Room Air 07/23/19 08:00 97.4 45 14 168/104 (125) 99 07/23/19 04:00 97.5 90 18 151/91 (111) 99 07/23/19 00:00 97.3 61 18 153/68 (96) 95 07/22/19 21:00 Room Air 07/22/19 20:10 64 16 95 Room Air 21 07/22/19 20:00 97.0 62 20 144/74 (97) 95 07/22/19 16:00 98.3 78 18 98/56 (70) 95 Height (Feet): 5 Height (Inches): 11.00 Weight (Pounds): 185 Objective General Appearance: WD/WN, no apparent distress Lines, tubes and drains: peripheral, PICC HEENT: normocephalic, atraumatic Neck: non-tender, normal alignment, supple Respiratory/Chest: chest wall non-tender, lungs clear Breasts: no masses Cardiovascular/Chest: normal peripheral pulses Abdomen: normal bowel sounds Genitourinary/Rectal: normal genital exam Extremities: normal range of motion Laboratory Tests Test 07/23/19 09:45 07/23/19 10:50 Arterial Blood pH 7.500 (7.350-7.450) Arterial Blood Partial Pressure CO2 33.4 mmHg (35.0-45.0) L Arterial Blood Partial Pressure O2 340.7 mmHg (75.0-100.0) H Arterial Blood HCO3 25.5 mmol/L (22.0-26.0) Arterial Blood Oxygen Saturation 99.1 % (95-100) Arterial Blood Base Excess 2.7 (-2-2) H Mihai Test Positive Sodium Level 145 MMOL/L (136-145) Potassium Level 3.1 MMOL/L (3.5-5.1) L Chloride Level 111 MMOL/L (98-107) H Carbon Dioxide Level 24 MMOL/L (21-32) Anion Gap 10 mmol/L (5-15) Blood Urea Nitrogen 7 mg/dL (7-18) Creatinine 0.7 MG/DL (0.55-1.30) Estimat Glomerular Filtration Rate mL/min (>60) Glucose Level 126 MG/DL (74-106) H Calcium Level 8.5 MG/DL (8.5-10.1) Total Bilirubin 0.6 MG/DL (0.2-1.0) Aspartate Amino Transf (AST/SGOT) 29 U/L (15-37) Alanine Aminotransferase (ALT/SGPT) 29 U/L (12-78) Alkaline Phosphatase 88 U/L (46-116) Total Protein 6.2 G/DL (6.4-8.2) L Albumin 2.3 G/DL (3.4-5.0) L Globulin 3.9 g/dL Albumin/Globulin Ratio 0.6 (1.0-2.7) L Current Medications Medications (Trade) Dose Ordered Sig/Monisha Route PRN Reason Start Time Stop Time Status Last Admin Dose Admin Acetaminophen (Tylenol) 650 mg Q4H PRN ORAL fever (T>100.5F) 07/18/19 14:00 08/17/19 13:59 Albuterol/ Ipratropium (Albuterol/ Ipratropium) 3 ml Q4H PRN HHN Shortness of Breath 07/18/19 14:00 07/23/19 13:59 Cefepime HCl 2 gm/ Dextrose 110 ml @ 220 mls/hr Q12HR@0400,1600 IV 07/19/19 04:00 07/26/19 03:59 07/23/19 04:50 Dextrose 1,000 ml @ 75 mls/hr [id number] IV 07/19/19 13:27 08/18/19 13:26 07/22/19 21:43 Donepezil HCl (Aricept) 10 mg DAILY ORAL 07/19/19 09:00 08/18/19 08:59 07/22/19 09:17 Morphine Sulfate (Morphine Sulfate) 2 mg Q4H PRN IVP Moderate Pain (Pain Scale 4-6) 07/18/19 14:00 07/25/19 13:59 07/22/19 00:20 Ondansetron HCl (Zofran) 4 mg Q6H PRN IVP Nausea & Vomiting 07/18/19 14:00 08/17/19 13:59 Phenazopyridine HCl (Pyridium) 100 mg DAILYPRN PRN ORAL dysuria 07/18/19 14:00 08/17/19 13:59 Polyethylene Glycol (Miralax) 17 gm DAILYPRN PRN ORAL Constipation 07/18/19 14:00 08/17/19 13:59 Vancomycin HCl (Vanco rx to dose) 1 ea DAILY PRN MISC PER RX PROTOCOL 07/18/19 15:00 08/17/19 14:59 Vancomycin HCl 750 mg/Sodium Chloride 275 ml @ 183.333 mls/hr Q12H IVPB 07/21/19 17:30 07/26/19 17:29 07/23/19 05:41 Gina Baker M.D. Jul 23, 2019 12:27
--- NOTE | 2019-07-23 12:38 | NUR ---
NURSE NOTES: Notified Dr Scott regarding high BP 167/76. He stated that he will come to nursing station shortly to see the patient.
--- NOTE | 2019-07-23 13:30 | NUR ---
NURSE NOTES: Dr Scott here to see the patient. Updated Dr Scott regarding pt's current condition including low HR, high BP and agitation. He is entering orders. Repositioned pt. Continued restraints.
--- NOTE | 2019-07-23 13:32 | Pulmonology Progress Note ---
Assessment/Plan Problems: (1) Pulmonary edema (2) Anemia (3) HTN (hypertension) (4) Obstructive sleep apnea (5) Hypernatremia (6) Alzheimer's dementia with behavioral disturbance (7) ATN (acute tubular necrosis) Assessment/Plan transferred to [facility] b/o dyspnea and agitation CXR showed mild CHF pt's BP was mildly increased start lasix K supplement check electrolytes respiratory treatment titrate fio2 to sat of 92% dvt prophylaxis. Subjective ROS Limited/Unobtainable: No Constitutional: Reports: no symptoms HEENT: Repors: no symptoms Allergies: Coded Allergies: BARBITURATES (Verified Allergy, Unknown, 07/07/16) BENZODIAZEPINES (Verified Allergy, Unknown, 07/07/16) CIPROFLOXACIN (Verified Allergy, Unknown, 07/18/19) DIPHENHYDRAMINE (Verified Allergy, Unknown, 07/07/16) DIVALPROEX SODIUM (Verified Allergy, Unknown, 07/07/16) HALOPERIDOL (Verified Allergy, Unknown, 07/07/16) LACTULOSE (Verified Allergy, Unknown, 07/18/19) LEVOFLOXACIN (Verified Allergy, Unknown, 07/18/19) LITHIUM (Verified Allergy, Unknown, 07/07/16) LORATADINE (Verified Allergy, Unknown, 07/07/16) LORAZEPAM (Verified Allergy, Unknown, 07/18/19) MEMANTINE (Verified Allergy, Unknown, 07/18/19) OLANZAPINE (Verified Allergy, Unknown, 07/07/16) PENICILLINS (Verified Allergy, Unknown, 07/07/16) QUETIAPINE (Verified Allergy, Unknown, 07/07/16) ZOLPIDEM (Verified Allergy, Unknown, 07/07/16) Uncoded Allergies: ANTIHISTAMINE (Allergy, Unknown, 07/07/16) Objective Last 24 Hour Vital Signs Date Time Temp Pulse Resp B/P (MAP) Pulse Ox O2 Delivery O2 Flow Rate FiO2 07/23/19 09:59 62 18 96 Room Air 21 07/23/19 09:00 Room Air 07/23/19 08:00 97.4 45 14 168/104 (125) 99 07/23/19 04:00 97.5 90 18 151/91 (111) 99 07/23/19 00:00 97.3 61 18 153/68 (96) 95 07/22/19 21:00 Room Air 07/22/19 20:10 64 16 95 Room Air 21 07/22/19 20:00 97.0 62 20 144/74 (97) 95 07/22/19 16:00 98.3 78 18 98/56 (70) 95 Intake and Output 07/22/19 07/23/19 19:00 07:00 Intake Total 480 ml 600 ml Output Total 450 ml Balance 480 ml 150 ml Intake Oral 480 ml IV Total 600 ml Output Urine Total 450 ml # Voids 3 1 General Appearance: WD/WN HEENT: normocephalic, atraumatic Respiratory/Chest: chest wall non-tender, lungs clear Cardiovascular: normal peripheral pulses, normal rate Abdomen: normal bowel sounds, no organomegaly Genitourinary: normal external genitalia Extremities: no clubbing Neurologic/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: 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 normal Lymphatic: no neck adenopathy Laboratory Tests 07/23/19 09:45: Arterial Blood pH 7.500H, Arterial Blood Partial Pressure CO2 33.4L, Arterial Blood Partial Pressure O2 340.7H, Arterial Blood HCO3 25.5, Arterial Blood Oxygen Saturation 99.1, Arterial Blood Base Excess 2.7H, Mihai Test Positive 07/23/19 10:50: Sodium Level 145, Potassium Level 3.1L, Chloride Level 111H, Carbon Dioxide Level 24, Anion Gap 10, Blood Urea Nitrogen 7, Creatinine 0.7, Estimat Glomerular Filtration Rate , Glucose Level 126H, Calcium Level 8.5, Total Bilirubin 0.6, Aspartate Amino Transf (AST/SGOT) 29, Alanine Aminotransferase ( ALT/SGPT) 29, Alkaline Phosphatase 88, Total Protein 6.2L, Albumin 2.3L, Globulin 3.9, Albumin/Globulin Ratio 0.6L Current Medications Medications (Trade) Dose Ordered Sig/Monisha Route PRN Reason Start Time Stop Time Status Last Admin Dose Admin Acetaminophen (Tylenol) 650 mg Q4H PRN ORAL fever (T>100.5F) 07/23/19 14:00 08/17/19 13:59 Albuterol/ Ipratropium (Albuterol/ Ipratropium) 3 ml Q4H PRN HHN Shortness of Breath 07/23/19 14:00 07/26/19 13:59 Cefepime HCl 2 gm/ Dextrose 110 ml @ 220 mls/hr Q12HR@0400,1600 IV 07/23/19 16:00 07/26/19 03:59 Dextrose 1,000 ml @ 75 mls/hr [id number] IV 07/23/19 12:45 08/18/19 13:26 07/23/19 13:03 Donepezil HCl (Aricept) 10 mg DAILY ORAL 07/24/19 09:00 08/18/19 08:59 Morphine Sulfate (Morphine Sulfate) 2 mg Q4H PRN IVP Moderate Pain (Pain Scale 4-6) 07/23/19 14:00 07/25/19 13:59 Ondansetron HCl (Zofran) 4 mg Q6H PRN IVP Nausea & Vomiting 07/23/19 14:00 08/17/19 13:59 Phenazopyridine HCl (Pyridium) 100 mg DAILYPRN PRN ORAL dysuria 07/23/19 14:00 08/17/19 13:59 Polyethylene Glycol (Miralax) 17 gm DAILYPRN PRN ORAL Constipation 07/23/19 14:00 08/17/19 13:59 Vancomycin HCl (Vanco rx to dose) 1 ea DAILY PRN MISC PER RX PROTOCOL 07/24/19 09:00 08/17/19 14:59 Vancomycin HCl 750 mg/Sodium Chloride 275 ml @ 183.333 mls/hr Q12H IVPB 07/23/19 17:30 07/26/19 17:29 Eladio Scott MD Jul 23, 2019 13:32
--- NOTE | 2019-07-23 13:42 | NUR ---
RD ASSESSMENT & RECOMMENDATIONS SEE CARE ACTIVITY FOR COMPLETE ASSESSMENT DAILY ESTIMATED NEEDS: Needs based on cardiac, 80kg abw 25-30 kcals/kg 5266-4251 total kcals 1-1.3 g protein/kg 80-104 g total protein 25-30 mL/kg 0986-4142 total fluid mLs NUTRITION DIAGNOSIS: Inadequate oral intake R/T decreased appetite, decreased cognitive fxn as evidenced by pt admitted w/ FTT dx w/ c/o "1 week of not eating," pt w/ h/o advanced dementia with psychiatric features. CURRENT DIET: ESTHER ms chopped PO DIET RECOMMENDATIONS: Liberalized REGULAR, texture per FULFILLMENT COORDINATOR ADDITIONAL RECOMMENDATIONS: * Txr pt to bed w/ functioning bedscale, obtain calibrated bedscale wt * Calorie count x 48 hrs * Add Ensure Enlive TID w/ meals * MVI x 1 as supplement * Consider appetite stimulant * Monitor PO intake and tolerance closely, need for nonoral feedings.
[2019-07-23] MEDS ORDERED: Morphine Sulfate 2mg/ml Inj(IV/IM USE ONLY) IVP PRN (14:00)
[2019-07-23] MEDS ORDERED: Albuterol/Ipratropium 3ml neb HHN PRN (14:00)
[2019-07-23] MEDS ORDERED: Miralax 17gm pkt ORAL PRN (14:00)
--- NOTE | 2019-07-23 15:06 | NUR ---
NURSE NOTES: Pt is too aggressive and agitated. Notified Dr Scott. No new orders. Pt transferred to [facility] closer to nursing station to observe.
[2019-07-23 16:00] VITALS: BP 152/76
--- NOTE | 2019-07-23 16:30 | NUR ---
CASE MANAGEMENT: REVIEW 07/23/2019 SI:UTI. JUAN. T 97.4 HR 59 RR 24 B/P 167/76 SATS 98% ON 2L/NC K 3.1 CL 111 GLU 126 ABGs PH 7.5 PCO2 33.4 PO2 340.7 BE 2.7 IS: IVF @ 75 mL/HR ARICEPT PO QD LASIX IV QD VANCO IV Q12H CEFEPIME IV Q12H KCL IV X1 KDUR PO Q4H SDU PLAN OF CARE: ELECTROLYTE REPLACEMENT PULMO HYGIENE CARDIO CONSULT
[2019-07-23] MEDS: Vancomycin 750 MG in NS 275 ML IVPB SCH (18:16)
--- NOTE | 2019-07-23 19:27 | NUR ---
HAND-OFF: Report given to OSCAR Dejesus.
--- NOTE | 2019-07-23 19:30 | NUR ---
NURSE NOTES: received patient from Suze Gramajo RN. patient is observed in bed, AO X1, restless. bilateral soft wrist restraints noted, bilateral radial pulses palpable. patient is on 2 liters O2 via NC. no s/sx of respiratory distress noted at this time. condom catheter is patent and intact, draining well. IV site is patent and intact, running fluids at prescribed rates. bed in lowest position and locked, siderails up x3, call light within reach. will continue to monitor.
[2019-07-23 20:00] VITALS: BP 163/116
[2019-07-24] VITALS: BP 140/100
--- NOTE | 2019-07-24 00:45 | Consultation ---
DATE OF CONSULTATION: 07/23/2019 CONSULTING PHYSICIAN: Irlanda Concepcion M.D. HISTORY OF PRESENT ILLNESS: The patient is a 69-year-old male with a history of dementia with behavior disturbance, anemia, hypertension, hypernatremia, UTI, history of renal failure who has been admitted to the hospital due to failure to thrive, low appetite, and losing weight. During the evaluation, the patient was agitated. He was in bilateral soft restraints and was unable to provide history. He was very jittery and impairment of concentration, memory, and attention. It was noted that the patient is allergic to many psychotropic medications. The patient is unable to understand, process, communicate, nor appreciate the informations given to him in regards to his current medical condition. The patient has not been eating and has been losing weight. The patient is still aggressive with the staff. PAST PSYCHIATRIC HISTORY: Dementia with visual disturbance and agitation. ALLERGIES: Include barbiturates, benzodiazepine, ciprofloxacin, diphenhydramine, Depakote, Haldol, lactulose, levofloxacin, lithium, Ativan, loratadine, memantine, olanzapine, penicillin, quetiapine. PAST MEDICAL HISTORY: As above. SUBSTANCE ABUSE HISTORY: No known history of illicit drug use or alcohol. MENTAL STATUS EXAMINATION: The patient is alert and disoriented. Mood is agitated. Affect is flat. There is psychomotor agitation. Thought process is disorganized and tangential. Thought content, no suicidal or homicidal ideation. Insight and judgment non-existent. Memory, concentration, attention severely impaired. ASSESSMENT: Kimmell I Dementia with behavior disturbance. Kimmell II Deferred. Kimmell III Failure to thrive. Kimmell IV Low. Kimmell V 20. PLAN: 1. The patient will be started on Remeron 7.5 at bedtime that will also help his agitation as well as behavior issues. 2. The patient lacks capacity to make decision. 3. I left a voice message for his daughter. Irlanda Concepcion M.D. DR: FLEX JOB#: [id number] CC: ELIUD
[2019-07-24 04:00] VITALS: BP 156/96
[2019-07-24] MEDS: Cefepime HCl 2 GM in D5W 110 ML IV SCH ×2 (04:24→16:25)
[2019-07-24] MEDS: Vancomycin 750 MG in NS 275 ML IVPB SCH ×2 (05:43→17:02)
--- NOTE | 2019-07-24 07:43 | NUR ---
HAND-OFF: Report given to OSCAR Miller. patient is in stable condition.
--- NOTE | 2019-07-24 07:44 | NUR ---
NURSE NOTES: Received report from OSCAR Dejesus. Observed patient in bed, awake, restless. On room air, no respiratory distress noted. Left AC IV intact with IV fluids infusing at prescribed rate. Condom catheter intact and draining well to gravity. Bilateral wrist restraints noted on patient, as ordered. Safety precautions in place, bed locked, alarmed, and in lowest position, side rails up x3, and call light within reach. Will continue visual checks and monitor patient.
[2019-07-24 08:00] VITALS: BP 160/90
[2019-07-24] MEDS ORDERED: Donepezil 10mg tab ORAL SCH (09:00)
--- NOTE | 2019-07-24 11:20 | Pulmonology Progress Note ---
Assessment/Plan Problems: (1) Pulmonary edema (2) Anemia (3) HTN (hypertension) (4) Obstructive sleep apnea (5) Hypernatremia (6) Alzheimer's dementia with behavioral disturbance (7) ATN (acute tubular necrosis) Assessment/Plan doing better no SOB K supplement check electrolytes respiratory treatment titrate fio2 to sat of 92% dvt prophylaxis. on Remeron 7.5 psych consult appreciated Subjective ROS Limited/Unobtainable: No Constitutional: Reports: no symptoms HEENT: Repors: no symptoms Respiratory: Reports: no symptoms Allergies: Coded Allergies: BARBITURATES (Verified Allergy, Unknown, 07/07/16) BENZODIAZEPINES (Verified Allergy, Unknown, 07/07/16) CIPROFLOXACIN (Verified Allergy, Unknown, 07/18/19) DIPHENHYDRAMINE (Verified Allergy, Unknown, 07/07/16) DIVALPROEX SODIUM (Verified Allergy, Unknown, 07/07/16) HALOPERIDOL (Verified Allergy, Unknown, 07/07/16) LACTULOSE (Verified Allergy, Unknown, 07/18/19) LEVOFLOXACIN (Verified Allergy, Unknown, 07/18/19) LITHIUM (Verified Allergy, Unknown, 07/07/16) LORATADINE (Verified Allergy, Unknown, 07/07/16) LORAZEPAM (Verified Allergy, Unknown, 07/18/19) MEMANTINE (Verified Allergy, Unknown, 07/18/19) OLANZAPINE (Verified Allergy, Unknown, 07/07/16) PENICILLINS (Verified Allergy, Unknown, 07/07/16) QUETIAPINE (Verified Allergy, Unknown, 07/07/16) ZOLPIDEM (Verified Allergy, Unknown, 07/07/16) Uncoded Allergies: ANTIHISTAMINE (Allergy, Unknown, 07/07/16) Objective Last 24 Hour Vital Signs Date Time Temp Pulse Resp B/P (MAP) Pulse Ox O2 Delivery O2 Flow Rate FiO2 07/24/19 08:00 Nasal Cannula 2.0 07/24/19 08:00 97.6 54 20 160/90 (113) 99 07/24/19 07:32 54 07/24/19 04:00 Nasal Cannula 2.0 07/24/19 04:00 54 07/24/19 04:00 97.9 54 20 156/96 (116) 95 07/24/19 00:00 97.5 58 24 140/100 (113) 99 07/24/19 00:00 49 07/24/19 00:00 Nasal Cannula 2.0 07/23/19 20:00 65 07/23/19 20:00 98.2 65 22 163/116 (132) 96 07/23/19 20:00 Nasal Cannula 2.0 07/23/19 16:00 97.3 58 22 152/76 (101) 97 07/23/19 16:00 Nasal Cannula 2.0 07/23/19 15:29 58 07/23/19 14:00 53 07/23/19 12:00 97.4 59 24 167/76 (106) 98 07/23/19 12:00 Nasal Cannula 2.0 Intake and Output 07/23/19 07/24/19 19:00 07:00 Intake Total 585 ml 1505.277 ml Output Total 2500 ml 600 ml Balance -1915 ml 905.277 ml IV Total 585 ml 1505.277 ml Output Urine Total 2500 ml 600 ml General Appearance: WD/WN HEENT: normocephalic, atraumatic Respiratory/Chest: chest wall non-tender, lungs clear Cardiovascular: normal peripheral pulses, normal rate Abdomen: normal bowel sounds, soft, non tender Genitourinary: normal external genitalia Extremities: no cyanosis Neurologic/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: 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 grossly normal Lymphatic: no neck adenopathy Musculoskeletal: normal muscle bulk Laboratory Tests 07/23/19 16:15: Vancomycin Level Trough 11.6 Current Medications Medications (Trade) Dose Ordered Sig/Monisha Route PRN Reason Start Time Stop Time Status Last Admin Dose Admin Acetaminophen (Tylenol) 650 mg Q4H PRN ORAL fever (T>100.5F) 07/23/19 14:00 08/17/19 13:59 Albuterol/ Ipratropium (Albuterol/ Ipratropium) 3 ml Q4H PRN HHN Shortness of Breath 07/23/19 14:00 07/26/19 13:59 Cefepime HCl 2 gm/ Dextrose 110 ml @ 220 mls/hr Q12HR@0400,1600 IV 07/23/19 16:00 07/26/19 03:59 07/24/19 04:24 Dextrose 1,000 ml @ 75 mls/hr [id number] IV 07/23/19 12:45 08/18/19 13:26 07/24/19 02:08 Donepezil HCl (Aricept) 10 mg DAILY ORAL 07/24/19 09:00 08/18/19 08:59 07/24/19 09:05 Furosemide (Lasix) 40 mg DAILY IV 07/23/19 13:30 08/22/19 13:29 07/24/19 09:05 Mirtazapine (Remeron) 7.5 mg BEDTIME ORAL 07/24/19 21:00 08/23/19 20:59 Morphine Sulfate (Morphine Sulfate) 2 mg Q4H PRN IVP Moderate Pain (Pain Scale 4-6) 07/23/19 14:00 07/25/19 13:59 07/23/19 21:45 Ondansetron HCl (Zofran) 4 mg Q6H PRN IVP Nausea & Vomiting 07/23/19 14:00 08/17/19 13:59 Phenazopyridine HCl (Pyridium) 100 mg DAILYPRN PRN ORAL dysuria 07/23/19 14:00 08/17/19 13:59 Polyethylene Glycol (Miralax) 17 gm DAILYPRN PRN ORAL Constipation 07/23/19 14:00 08/17/19 13:59 Vancomycin HCl (Vanco rx to dose) 1 ea DAILY PRN MISC PER RX PROTOCOL 07/24/19 09:00 08/17/19 14:59 Vancomycin HCl 750 mg/Sodium Chloride 275 ml @ 183.333 mls/hr Q12H IVPB 07/23/19 17:30 07/26/19 17:29 07/24/19 05:43 Eladio Scott MD Jul 24, 2019 11:20
[2019-07-24 12:00] VITALS: BP 150/95
--- NOTE | 2019-07-24 13:05 | Infectious Diseases Prog Note ---
Assessment/Plan Assessment/Plan Assessment: Failure to thrive Low grade fever, sp No leukocytosis Probable UTI : -u.a wbc 40-60, nit neg, leuk large; ucx enterococcus fecalis (S PNC, Vancomycin) -Bcx Neg ?Probable pNA -CXR: Retrocardiac infiltrate and possible left basilar pleural fluid JUAN, SP Alzheimer's disease HERON DDD HTN Plan: -Cont pt on empiric IV Vancomycin and Cefepime #7/ 7 , ok to DC w cont of AB Rx -f/u cx -Monitor CBC/CMP, temperatures Subjective Allergies: Coded Allergies: BARBITURATES (Verified Allergy, Unknown, 07/07/16) BENZODIAZEPINES (Verified Allergy, Unknown, 07/07/16) CIPROFLOXACIN (Verified Allergy, Unknown, 07/18/19) DIPHENHYDRAMINE (Verified Allergy, Unknown, 07/07/16) DIVALPROEX SODIUM (Verified Allergy, Unknown, 07/07/16) HALOPERIDOL (Verified Allergy, Unknown, 07/07/16) LACTULOSE (Verified Allergy, Unknown, 07/18/19) LEVOFLOXACIN (Verified Allergy, Unknown, 07/18/19) LITHIUM (Verified Allergy, Unknown, 07/07/16) LORATADINE (Verified Allergy, Unknown, 07/07/16) LORAZEPAM (Verified Allergy, Unknown, 07/18/19) MEMANTINE (Verified Allergy, Unknown, 07/18/19) OLANZAPINE (Verified Allergy, Unknown, 07/07/16) PENICILLINS (Verified Allergy, Unknown, 07/07/16) QUETIAPINE (Verified Allergy, Unknown, 07/07/16) ZOLPIDEM (Verified Allergy, Unknown, 07/07/16) Uncoded Allergies: ANTIHISTAMINE (Allergy, Unknown, 07/07/16) Subjective afebrile no leukcoytosis Bcx Neg Objective Vital Signs Last 24 Hour Vital Signs Date Time Temp Pulse Resp B/P (MAP) Pulse Ox O2 Delivery O2 Flow Rate FiO2 07/24/19 12:00 97.5 64 20 150/95 (113) 96 07/24/19 12:00 Nasal Cannula 2.0 07/24/19 08:00 Nasal Cannula 2.0 07/24/19 08:00 97.6 54 20 160/90 (113) 99 07/24/19 07:32 54 07/24/19 04:00 Nasal Cannula 2.0 07/24/19 04:00 54 07/24/19 04:00 97.9 54 20 156/96 (116) 95 07/24/19 00:00 97.5 58 24 140/100 (113) 99 07/24/19 00:00 49 07/24/19 00:00 Nasal Cannula 2.0 07/23/19 20:00 65 07/23/19 20:00 98.2 65 22 163/116 (132) 96 07/23/19 20:00 Nasal Cannula 2.0 07/23/19 16:00 97.3 58 22 152/76 (101) 97 07/23/19 16:00 Nasal Cannula 2.0 07/23/19 15:29 58 07/23/19 14:00 53 Height (Feet): 5 Height (Inches): 11.00 Weight (Pounds): 167 Objective General Appearance: WD/WN, no apparent distress Lines, tubes and drains: peripheral, PICC HEENT: normocephalic, atraumatic Neck: non-tender, normal alignment, supple Respiratory/Chest: chest wall non-tender, lungs clear Breasts: no masses Cardiovascular/Chest: normal peripheral pulses Abdomen: normal bowel sounds Genitourinary/Rectal: normal genital exam Extremities: normal range of motion Laboratory Tests Test 07/23/19 16:15 Vancomycin Level Trough 11.6 ug/mL (5.0-12.0) Current Medications Medications (Trade) Dose Ordered Sig/Monisha Route PRN Reason Start Time Stop Time Status Last Admin Dose Admin Acetaminophen (Tylenol) 650 mg Q4H PRN ORAL fever (T>100.5F) 07/23/19 14:00 08/17/19 13:59 Albuterol/ Ipratropium (Albuterol/ Ipratropium) 3 ml Q4H PRN HHN Shortness of Breath 07/23/19 14:00 07/26/19 13:59 Cefepime HCl 2 gm/ Dextrose 110 ml @ 220 mls/hr Q12HR@0400,1600 IV 07/23/19 16:00 07/26/19 03:59 07/24/19 04:24 Dextrose 1,000 ml @ 75 mls/hr [id number] IV 07/23/19 12:45 08/18/19 13:26 07/24/19 02:08 Donepezil HCl (Aricept) 10 mg DAILY ORAL 07/24/19 09:00 08/18/19 08:59 07/24/19 09:05 Furosemide (Lasix) 40 mg DAILY IV 07/23/19 13:30 08/22/19 13:29 07/24/19 09:05 Mirtazapine (Remeron) 7.5 mg BEDTIME ORAL 07/24/19 21:00 08/23/19 20:59 Morphine Sulfate (Morphine Sulfate) 2 mg Q4H PRN IVP Moderate Pain (Pain Scale 4-6) 07/23/19 14:00 07/25/19 13:59 07/23/19 21:45 Ondansetron HCl (Zofran) 4 mg Q6H PRN IVP Nausea & Vomiting 07/23/19 14:00 08/17/19 13:59 Phenazopyridine HCl (Pyridium) 100 mg DAILYPRN PRN ORAL dysuria 07/23/19 14:00 08/17/19 13:59 Polyethylene Glycol (Miralax) 17 gm DAILYPRN PRN ORAL Constipation 07/23/19 14:00 08/17/19 13:59 Vancomycin HCl (Vanco rx to dose) 1 ea DAILY PRN MISC PER RX PROTOCOL 07/24/19 09:00 08/17/19 14:59 Vancomycin HCl 750 mg/Sodium Chloride 275 ml @ 183.333 mls/hr Q12H IVPB 07/23/19 17:30 07/26/19 17:29 07/24/19 05:43 Gina Baker M.D. Jul 24, 2019 13:05
--- NOTE | 2019-07-24 15:33 | NUR ---
TRANSFER TO FLOOR: Patient transferred to Med-Surg room 406-2, per Dr Scott's order. Report given to OSCAR Hill. Belongings list signed and medications given to OSCAR Hill. Addendum: 07/24/19 at 1535 by Angela Christianson RN Patient in stable condition.
--- NOTE | 2019-07-24 15:35 | NUR ---
NURSE NOTES: Received patient from [facility]. Patient is on oxygen @ 2L/min via NC. Breathing is even and unlabored. No wheezing or congestion. Patient is verbally responsive but confused. On bilateral soft restraints, when restraints were released , patient tried to remove IV and tried to get out of the bed dangling his legs. No swelling or skin break, pulses present. Skin assessment done, no redness on pressure points but noted with ecchymosis on upper ex's but no skin break. Bed is in lowest position and locked. Bed alarm is on.IV intact,will continue plan of care.
[2019-07-24] MEDS ORDERED: Tubing IV Secondary IV ONE (15:54)
[2019-07-24 16:00] VITALS: BP 156/90
[2019-07-24] MEDS ORDERED: Morphine Sulfate 2mg/ml Inj(IV/IM USE ONLY) IVP PRN (16:00)
[2019-07-24] MEDS ORDERED: Miralax 17gm pkt ORAL PRN (16:00)
[2019-07-24] MEDS ORDERED: Albuterol/Ipratropium 3ml neb HHN PRN (16:00)
--- NOTE | 2019-07-24 19:07 | NUR ---
HAND-OFF: Report given to Joanne, no swelling or skin break on wrists.
--- NOTE | 2019-07-24 19:45 | Progress Note ---
SUBJECTIVE: The patient is still in [facility]. The patient is being anxious, agitated this morning. During my evaluation, is calmer. The patient has poor insight, not able to be engaged. MENTAL STATUS EXAMINATION: The patient is alert, confused, disoriented. Mood is agitated. Affect is flat. Thought process, there is a paucity of thought content. Thought content, no suicidal or homicidal ideations. Memory, concentration and attention is impaired. Insight and judgment non-existent. ASSESSMENT: 1. Acute encephalopathy. 2. Dementia. 3. Agitation. PLAN: We will continue current medication. Provide the patient with reality orientation and supportive therapy. Irlanda Concepcion M.D. DR: Reynaldo JOB#: [id number] CC:
[2019-07-24 20:00] VITALS: BP 144/87
--- NOTE | 2019-07-24 20:00 | NUR ---
NURSE NOTES: Received patient awake in bed, condom catheter off, patient agitated. Soft wrist restraints noted, skin underneath asymptomatic, peripheral pulses present. IV access patent, running IVF maintenance. Bed low and locked, patient kicked off SCDs.
--- NOTE | 2019-07-24 20:22 | Cardiology Progress Note ---
Assessment/Plan Assessment/Plan full note to follow difficult to get iformation probnp sig low cxr nwo shoing more effusion will check labs in and echo and ekg Objective Last 24 Hour Vital Signs Date Time Temp Pulse Resp B/P (MAP) Pulse Ox O2 Delivery O2 Flow Rate FiO2 07/24/19 19:41 80 18 98 Nasal Cannula 2.0 28 07/24/19 16:00 97.5 54 18 156/90 (112) 96 07/24/19 12:00 48 07/24/19 12:00 97.5 64 20 150/95 (113) 96 07/24/19 12:00 Nasal Cannula 2.0 07/24/19 08:00 Nasal Cannula 2.0 07/24/19 08:00 97.6 54 20 160/90 (113) 99 07/24/19 07:32 54 07/24/19 04:00 Nasal Cannula 2.0 07/24/19 04:00 54 07/24/19 04:00 97.9 54 20 156/96 (116) 95 07/24/19 00:00 97.5 58 24 140/100 (113) 99 07/24/19 00:00 49 07/24/19 00:00 Nasal Cannula 2.0 Intake and Output 07/23/19 07/24/19 19:00 07:00 Intake Total 585 ml 1505.277 ml Output Total 2500 ml 600 ml Balance -1915 ml 905.277 ml IV Total 585 ml 1505.277 ml Output Urine Total 2500 ml 600 ml Walter Roldan MD Jul 24, 2019 20:22
[2019-07-25] VITALS (7 sets, daily range): BP systolic 127–163; BP diastolic 65–115
--- NOTE | 2019-07-25 00:30 | Progress Note ---
DATE: 07/24/2019 SUBJECTIVE: The patient is still in [facility]. The patient is being anxious, agitated this morning. During my evaluation, he is calmer. The patient has poor insight, not able to be engaged. MENTAL STATUS EXAMINATION: The patient is alert, confused, disoriented. Mood is agitated. Affect is flat. Thought process, there is a paucity of thought content. Thought content, no suicidal or homicidal ideations. Memory, concentration and attention is impaired. Insight and judgment, non-existent. ASSESSMENT: 1. Acute encephalopathy. 2. Dementia. 3. Agitation. PLAN: We will continue current medication. Provide the patient with reality orientation and supportive therapy. Irlanda Concepcion M.D. DR: Reynaldo JOB#: [id number] CC:
[2019-07-25] MEDS: Cefepime HCl 2 GM in D5W 110 ML IV SCH (03:41)
[2019-07-25] MEDS: Vancomycin 750 MG in NS 275 ML IVPB SCH (04:58)
[2019-07-25 06:49] LABS: BASOPHILS % (AUTO) 1.5 % (0.0-2.0); EOSINOPHILS % (AUTO) 5.3 % (0.0-3.0); HEMATOCRIT 44.2 % (42.0-52.0); HEMOGLOBIN 15.1 G/DL (14.2-18.0); MEAN CORPUSCULAR VOLUME 86 FL (80-99); MONOCYTES % (AUTO) 15.1 % (1.0-10.0); NEUTROPHILS % (AUTO) 47.1 % (45.0-75.0); PLATELET COUNT 173 K/UL (150-450); RED BLOOD COUNT 5.14 M/UL (4.70-6.10); RED CELL DISTRIBUTION WIDTH 12.9 % (11.6-14.8)
--- NOTE | 2019-07-25 07:19 | NUR ---
HAND-OFF: Report given to OSCAR Boland.
--- NOTE | 2019-07-25 07:30 | NUR ---
NURSE NOTES: Received pt from OSCAR ZENG. Pt is confused and orient x1. Pt has NC 2LMP. pt has intact iv access RFA 22g is running well. all needs attended, bed is locked and is in the lowest position. call light within easy reach. will continue to monitor.
[2019-07-25 08:07] LABS: ALANINE AMINOTRANSFERASE 39 U/L (12-78); ALBUMIN 2.5 G/DL (3.4-5.0); ALBUMIN/GLOBULIN RATIO 0.6 (1.0-2.7); ALKALINE PHOSPHATASE 95 U/L (46-116); ANION GAP 9 mmol/L (5-15); ASPARTATE AMINO TRANSFERASE 33 U/L (15-37); BILIRUBIN,TOTAL 0.6 MG/DL (0.2-1.0); BLOOD UREA NITROGEN 7 mg/dL (7-18); CARBON DIOXIDE 27 MMOL/L (21-32); CHLORIDE 110 MMOL/L (98-107); CREATINE KINASE 128 U/L (26-308); CREATININE 0.9 MG/DL (0.55-1.30); POTASSIUM 3.4 MMOL/L (3.5-5.1); SODIUM 146 MMOL/L (136-145)
[2019-07-25] MEDS ORDERED: Donepezil 10mg tab ORAL SCH (09:00)
--- NOTE | 2019-07-25 13:06 | NUR ---
NURSE NOTES: Dr CONNER visited pt and he is aware about HR 55 AND 48, No new order to RN. is aware about other lab results and V/S ordered KCL 40MEQ PO QD, noted and carried out. will continue to monitor.
--- NOTE | 2019-07-25 13:16 | Pulmonology Progress Note ---
Assessment/Plan Problems: (1) Anemia (2) HTN (hypertension) (3) Obstructive sleep apnea (4) Hypernatremia (5) Alzheimer's dementia with behavioral disturbance (6) ATN (acute tubular necrosis) Assessment/Plan doing better on lasix K supplement check electrolytes respiratory treatment titrate fio2 to sat of 92% dvt prophylaxis. on Remeron 7.5 psych consult appreciated Subjective ROS Limited/Unobtainable: No Constitutional: Reports: no symptoms HEENT: Repors: no symptoms Respiratory: Reports: no symptoms Allergies: Coded Allergies: BARBITURATES (Verified Allergy, Unknown, 07/07/16) BENZODIAZEPINES (Verified Allergy, Unknown, 07/07/16) CIPROFLOXACIN (Verified Allergy, Unknown, 07/18/19) DIPHENHYDRAMINE (Verified Allergy, Unknown, 07/07/16) DIVALPROEX SODIUM (Verified Allergy, Unknown, 07/07/16) HALOPERIDOL (Verified Allergy, Unknown, 07/07/16) LACTULOSE (Verified Allergy, Unknown, 07/18/19) LEVOFLOXACIN (Verified Allergy, Unknown, 07/18/19) LITHIUM (Verified Allergy, Unknown, 07/07/16) LORATADINE (Verified Allergy, Unknown, 07/07/16) LORAZEPAM (Verified Allergy, Unknown, 07/18/19) MEMANTINE (Verified Allergy, Unknown, 07/18/19) OLANZAPINE (Verified Allergy, Unknown, 07/07/16) PENICILLINS (Verified Allergy, Unknown, 07/07/16) QUETIAPINE (Verified Allergy, Unknown, 07/07/16) ZOLPIDEM (Verified Allergy, Unknown, 07/07/16) Uncoded Allergies: ANTIHISTAMINE (Allergy, Unknown, 07/07/16) Objective Last 24 Hour Vital Signs Date Time Temp Pulse Resp B/P (MAP) Pulse Ox O2 Delivery O2 Flow Rate FiO2 07/25/19 12:00 97.9 48 20 157/115 (129) 97 07/25/19 10:00 55 160/65 (96) 07/25/19 09:00 Nasal Cannula 2.0 07/25/19 08:10 95 Nasal Cannula 2.0 28 07/25/19 08:00 97.7 60 18 163/99 (120) 99 07/25/19 07:50 64 18 95 Nasal Cannula 2.0 28 07/25/19 04:51 98.3 07/25/19 04:00 98.3 67 18 148/81 (103) 97 07/25/19 00:00 98.3 65 18 155/82 (106) 96 07/24/19 22:05 Nasal Cannula 2.0 07/24/19 20:00 98.2 61 18 144/87 (106) 96 07/24/19 19:41 80 18 98 Nasal Cannula 2.0 28 07/24/19 16:00 97.5 54 18 156/90 (112) 96 Intake and Output 07/24/19 07/25/19 19:00 07:00 Intake Total 1579.723 ml 75 ml Output Total 1450 ml Balance 129.723 ml 75 ml Intake Oral 520 ml IV Total 1059.723 ml 75 ml Output Urine Total 1450 ml # Voids 1 4 General Appearance: WD/WN HEENT: normocephalic, atraumatic Respiratory/Chest: chest wall non-tender, lungs clear Cardiovascular: normal peripheral pulses, normal rate, no JVD Abdomen: normal bowel sounds Extremities: no cyanosis Skin: no rash Laboratory Tests 07/25/19 06:00: White Blood Count 4.0L, Red Blood Count 5.14, Hemoglobin 15.1, Hematocrit 44.2, Mean Corpuscular Volume 86, Mean Corpuscular Hemoglobin 29.3, Mean Corpuscular Hemoglobin Concent 34.1, Red Cell Distribution Width 12.9, Platelet Count 173, Mean Platelet Volume 7.1, Neutrophils (%) (Auto) 47.1, Lymphocytes (%) (Auto) 31.0, Monocytes (%) (Auto) 15.1H, Eosinophils (%) (Auto) 5.3H, Basophils (%) ( Auto) 1.5, Sodium Level 146H, Potassium Level 3.4L, Chloride Level 110H, Carbon Dioxide Level 27, Anion Gap 9, Blood Urea Nitrogen 7, Creatinine 0.9, Estimat Glomerular Filtration Rate , Glucose Level 96, Calcium Level 9.0, Total Bilirubin 0.6, Aspartate Amino Transf (AST/SGOT) 33, Alanine Aminotransferase ( ALT/SGPT) 39, Alkaline Phosphatase 95, Total Creatine Kinase 128, Pro-B-Type Natriuretic Peptide 101, Total Protein 6.7, Albumin 2.5L, Globulin 4.2, Albumin/ Globulin Ratio 0.6L Current Medications Medications (Trade) Dose Ordered Sig/Monisha Route PRN Reason Start Time Stop Time Status Last Admin Dose Admin Acetaminophen (Tylenol) 650 mg Q4H PRN ORAL fever (T>100.5F) 07/24/19 16:00 08/17/19 15:59 Albuterol/ Ipratropium (Albuterol/ Ipratropium) 3 ml Q4H PRN HHN Shortness of Breath 07/24/19 16:00 07/26/19 15:59 Cefepime HCl 2 gm/ Dextrose 110 ml @ 220 mls/hr Q12HR@0400,1600 IV 07/24/19 16:00 07/26/19 03:59 07/25/19 03:41 Dextrose 1,000 ml @ 75 mls/hr [id number] IV 07/24/19 16:00 08/18/19 13:26 07/24/19 16:21 Donepezil HCl (Aricept) 10 mg DAILY ORAL 07/25/19 09:00 08/18/19 08:59 07/25/19 09:10 Furosemide (Lasix) 40 mg DAILY IV 07/25/19 09:00 08/22/19 13:29 07/25/19 09:10 Mirtazapine (Remeron) 7.5 mg BEDTIME ORAL 07/24/19 21:00 08/23/19 20:59 07/24/19 20:38 Morphine Sulfate (Morphine Sulfate) 2 mg Q4H PRN IVP Moderate Pain (Pain Scale 4-6) 07/24/19 16:00 07/25/19 15:59 07/25/19 04:21 Ondansetron HCl (Zofran) 4 mg Q6H PRN IVP Nausea & Vomiting 07/24/19 16:00 08/17/19 15:59 Phenazopyridine HCl (Pyridium) 100 mg DAILYPRN PRN ORAL dysuria 07/24/19 16:00 08/23/19 15:59 Polyethylene Glycol (Miralax) 17 gm DAILYPRN PRN ORAL Constipation 07/24/19 16:00 08/23/19 15:59 Potassium Chloride (K-Dur) 40 meq DAILY ORAL 07/25/19 13:15 08/24/19 13:14 Vancomycin HCl (Vanco rx to dose) 1 ea DAILY PRN MISC PER RX PROTOCOL 07/24/19 16:00 08/23/19 15:59 Vancomycin HCl 750 mg/Sodium Chloride 275 ml @ 183.333 mls/hr Q12H IVPB 07/24/19 17:30 07/26/19 17:29 07/25/19 04:58 Eladio Scott MD Jul 25, 2019 13:16
[2019-07-25] MEDS ORDERED: OLANZapine 2.5mg tab ORAL SCH (13:30)
--- NOTE | 2019-07-25 14:11 | Infectious Diseases Prog Note ---
Assessment/Plan Assessment/Plan Assessment: Failure to thrive Low grade fever, sp No leukocytosis Probable UTI : -u.a wbc 40-60, nit neg, leuk large; ucx enterococcus fecalis (S PNC, Vancomycin) -Bcx Neg ?Probable pNA -CXR: Retrocardiac infiltrate and possible left basilar pleural fluid JUAN, SP Alzheimer's disease HERON DDD HTN Plan: -D/c empiric IV Vancomycin and Cefepime #8/ -f/u cx -Monitor CBC/CMP, temperatures Subjective Allergies: Coded Allergies: BARBITURATES (Verified Allergy, Unknown, 07/07/16) BENZODIAZEPINES (Verified Allergy, Unknown, 07/07/16) CIPROFLOXACIN (Verified Allergy, Unknown, 07/18/19) DIPHENHYDRAMINE (Verified Allergy, Unknown, 07/07/16) DIVALPROEX SODIUM (Verified Allergy, Unknown, 07/07/16) HALOPERIDOL (Verified Allergy, Unknown, 07/07/16) LACTULOSE (Verified Allergy, Unknown, 07/18/19) LEVOFLOXACIN (Verified Allergy, Unknown, 07/18/19) LITHIUM (Verified Allergy, Unknown, 07/07/16) LORATADINE (Verified Allergy, Unknown, 07/07/16) LORAZEPAM (Verified Allergy, Unknown, 07/18/19) MEMANTINE (Verified Allergy, Unknown, 07/18/19) OLANZAPINE (Verified Allergy, Unknown, 07/07/16) PENICILLINS (Verified Allergy, Unknown, 07/07/16) QUETIAPINE (Verified Allergy, Unknown, 07/07/16) ZOLPIDEM (Verified Allergy, Unknown, 07/07/16) Uncoded Allergies: ANTIHISTAMINE (Allergy, Unknown, 07/07/16) Subjective afebrile no leukcoytosis Objective Vital Signs Last 24 Hour Vital Signs Date Time Temp Pulse Resp B/P (MAP) Pulse Ox O2 Delivery O2 Flow Rate FiO2 07/25/19 12:00 97.9 48 20 157/115 (129) 97 07/25/19 10:00 55 160/65 (96) 07/25/19 09:00 Nasal Cannula 2.0 07/25/19 08:10 95 Nasal Cannula 2.0 28 07/25/19 08:00 97.7 60 18 163/99 (120) 99 07/25/19 07:50 64 18 95 Nasal Cannula 2.0 28 07/25/19 04:51 98.3 07/25/19 04:00 98.3 67 18 148/81 (103) 97 07/25/19 00:00 98.3 65 18 155/82 (106) 96 07/24/19 22:05 Nasal Cannula 2.0 07/24/19 20:00 98.2 61 18 144/87 (106) 96 07/24/19 19:41 80 18 98 Nasal Cannula 2.0 28 07/24/19 16:00 97.5 54 18 156/90 (112) 96 Height (Feet): 5 Height (Inches): 11.00 Weight (Pounds): 167 Objective General Appearance: WD/WN, no apparent distress Lines, tubes and drains: peripheral, PICC HEENT: normocephalic, atraumatic Neck: non-tender, normal alignment, supple Respiratory/Chest: chest wall non-tender, lungs clear Breasts: no masses Cardiovascular/Chest: normal peripheral pulses Abdomen: normal bowel sounds Genitourinary/Rectal: normal genital exam Extremities: normal range of motion Laboratory Tests Test 07/25/19 06:00 White Blood Count 4.0 K/UL (4.8-10.8) L Red Blood Count 5.14 M/UL (4.70-6.10) Hemoglobin 15.1 G/DL (14.2-18.0) Hematocrit 44.2 % (42.0-52.0) Mean Corpuscular Volume 86 FL (80-99) Mean Corpuscular Hemoglobin 29.3 PG (27.0-31.0) Mean Corpuscular Hemoglobin Concent 34.1 G/DL (32.0-36.0) Red Cell Distribution Width 12.9 % (11.6-14.8) Platelet Count 173 K/UL (150-450) Mean Platelet Volume 7.1 FL (6.5-10.1) Neutrophils (%) (Auto) 47.1 % (45.0-75.0) Lymphocytes (%) (Auto) 31.0 % (20.0-45.0) Monocytes (%) (Auto) 15.1 % (1.0-10.0) H Eosinophils (%) (Auto) 5.3 % (0.0-3.0) H Basophils (%) (Auto) 1.5 % (0.0-2.0) Sodium Level 146 MMOL/L (136-145) H Potassium Level 3.4 MMOL/L (3.5-5.1) L Chloride Level 110 MMOL/L (98-107) H Carbon Dioxide Level 27 MMOL/L (21-32) Anion Gap 9 mmol/L (5-15) Blood Urea Nitrogen 7 mg/dL (7-18) Creatinine 0.9 MG/DL (0.55-1.30) Estimat Glomerular Filtration Rate mL/min (>60) Glucose Level 96 MG/DL (74-106) Calcium Level 9.0 MG/DL (8.5-10.1) Total Bilirubin 0.6 MG/DL (0.2-1.0) Aspartate Amino Transf (AST/SGOT) 33 U/L (15-37) Alanine Aminotransferase (ALT/SGPT) 39 U/L (12-78) Alkaline Phosphatase 95 U/L (46-116) Total Creatine Kinase 128 U/L (26-308) Pro-B-Type Natriuretic Peptide 101 pg/mL (0-125) Total Protein 6.7 G/DL (6.4-8.2) Albumin 2.5 G/DL (3.4-5.0) L Globulin 4.2 g/dL Albumin/Globulin Ratio 0.6 (1.0-2.7) L Current Medications Medications (Trade) Dose Ordered Sig/Monisha Route PRN Reason Start Time Stop Time Status Last Admin Dose Admin Acetaminophen (Tylenol) 650 mg Q4H PRN ORAL fever (T>100.5F) 07/24/19 16:00 08/17/19 15:59 Albuterol/ Ipratropium (Albuterol/ Ipratropium) 3 ml Q4H PRN HHN Shortness of Breath 07/24/19 16:00 07/26/19 15:59 Cefepime HCl 2 gm/ Dextrose 110 ml @ 220 mls/hr Q12HR@0400,1600 IV 07/24/19 16:00 07/26/19 03:59 07/25/19 03:41 Dextrose 1,000 ml @ 75 mls/hr [id number] IV 07/24/19 16:00 08/18/19 13:26 07/24/19 16:21 Furosemide (Lasix) 40 mg DAILY IV 07/25/19 09:00 08/22/19 13:29 07/25/19 09:10 Mirtazapine (Remeron) 15 mg BEDTIME ORAL 07/25/19 21:00 08/24/19 20:59 Morphine Sulfate (Morphine Sulfate) 2 mg Q4H PRN IVP Moderate Pain (Pain Scale 4-6) 07/24/19 16:00 07/25/19 15:59 07/25/19 04:21 Olanzapine (ZyPREXA) 2.5 mg ONCE ORAL 07/25/19 13:30 07/25/19 15:00 07/25/19 14:01 Ondansetron HCl (Zofran) 4 mg Q6H PRN IVP Nausea & Vomiting 07/24/19 16:00 08/17/19 15:59 Phenazopyridine HCl (Pyridium) 100 mg DAILYPRN PRN ORAL dysuria 07/24/19 16:00 08/23/19 15:59 Polyethylene Glycol (Miralax) 17 gm DAILYPRN PRN ORAL Constipation 07/24/19 16:00 08/23/19 15:59 Potassium Chloride (K-Dur) 40 meq DAILY ORAL 07/25/19 13:15 08/24/19 13:14 07/25/19 14:02 Vancomycin HCl (Vanco rx to dose) 1 ea DAILY PRN MISC PER RX PROTOCOL 07/24/19 16:00 08/23/19 15:59 Vancomycin HCl 750 mg/Sodium Chloride 275 ml @ 183.333 mls/hr Q12H IVPB 07/24/19 17:30 07/26/19 17:29 07/25/19 04:58 Gina Baker M.D. Jul 25, 2019 14:11
--- NOTE | 2019-07-25 15:05 | NUR ---
RESPIRATORY NOTE: Got a prn tx requested from OSCAR Boland due to desaturation. Went check up on the pt, pt saturates at 100% on 5L NC 40%FiO2, no SOB or resp distress noted RR 18bpm, phil rhonchi breath sounds, responds to stimuli. Titrated FiO2 down to 3L NC 32%FiO2, pt still saturates at 100%. Pt doesn't need breathing tx prn. Notified OSCAR Boland and KIANA De La Fuente. Will continue to monitor pt.
--- NOTE | 2019-07-25 15:36 | NUR ---
NURSE NOTES:Pt's skin assessed with primary nurse present. Pt very restless in bed .Made frequent attempts to climb out of bed while staff present. Red rash noted to lumbar sacral region. Non-blanching erythema noted to R and L clefts of buttocks.Pt did not exhibit any signs of distress when buttocks and sacral regions palpated. Both heels are firm and blanchable. Triad Paste applied to sacral area. Covered with Optifoam drsg. Triad paste also applied to R and L clefts of buttocks. Cavilon Skin Barrier applied to both heels. each heel covered with Optifoam to prevent further friction on skin. Side-rail bumper pads placed along siderails. Recommendations:Apply Moisture Barrier Paste to buttocks and scrotum with each incontinence care.. Apply Moisture Barrier Paste to sacrum .Cover with Optifoam drsg. Change every 3 days and prn. Apply Cavilon Skin Barrier to both heels. Cover each heel with Optifoam drsg. Change every 7 days and prn. Reposition at least every 2hours or as tolerated. Off-load heels with pillow.
--- NOTE | 2019-07-25 16:00 | Progress Note ---
DATE: 07/25/2019 SUBJECTIVE: The patient is agitated, yelling screaming, not following any directions. He is confused, unable to answer any questions. The patient has many medication on his allergy profile. The patient in addition is bradycardic. Other antipsychotics beside Zyprexa are not safe to be administered therefore I called the pharmacy and will administer low-dose for one time. MENTAL STATUS EXAMINATION: The patient is alert, confused, disoriented. Mood is agitated. Affect is blunted. Congruent with mood. Thought process is disorganized. Thought content, no suicidal or homicidal ideations. The patient is delusional. Memory, concentration, and attention is severely impaired. Insight and judgment non-existent. ASSESSMENT: Dementia with behavior disturbance. PLAN: 1. We will increase Remeron to 15 mg at bedtime. 2. Discontinue Aricept. 3. Give one dose of Zyprexa 2.5. 4. Discussed with the team. Irlanda Concepcion M.D. DR: Reynaldo JOB#: [id number] CC:
--- NOTE | 2019-07-25 18:30 | NUR ---
CASE MANAGEMENT: REVIEW 07/24/2019 SI:UTI. JUAN. T 97.6 HR 76 RR 20 B/P 145/76 SATS 99% ON 2L/NC WBC 4 NA 146 K 3.4 CL 110 IS: IVF @ 75 mL/HR ARICEPT PO QD LASIX IV QD VANCO IV Q12H CEFEPIME IV Q12H KCL IV X1 KDUR PO Q4H MED/SURG STATUS
--- NOTE | 2019-07-25 19:30 | NUR ---
NURSE NOTES: Received report from AM RN. Patient is in bed agitated, confused and moving excessively. Bilateral wrist restraints are applied. No s/s of redness or irritation of the skin on arms or wrist. VSS with no s/s of pain or SOB. Oxygen applied 2L via nasal cannula. Fluids running at 75ml/hr per eMAR order. Will continue to monitor.
--- NOTE | 2019-07-25 19:37 | NUR ---
HAND-OFF: Report given to AB MOORE.PT is stable.
--- NOTE | 2019-07-25 19:39 | Cardiology Progress Note ---
Assessment/Plan Assessment/Plan htn anemia jade dementia poor pop intake probnp remain sig low bp is fien cxr ntoed await echo labs noted decreae ivf rate Subjective ROS Limited/Unobtainable: Yes Objective Last 24 Hour Vital Signs Date Time Temp Pulse Resp B/P (MAP) Pulse Ox O2 Delivery O2 Flow Rate FiO2 07/25/19 16:00 97.6 76 20 145/76 (99) 99 07/25/19 14:00 58 07/25/19 12:00 97.9 48 20 157/115 (129) 97 07/25/19 10:00 55 160/65 (96) 07/25/19 09:00 Nasal Cannula 2.0 07/25/19 08:10 95 Nasal Cannula 2.0 28 07/25/19 08:00 97.7 60 18 163/99 (120) 99 07/25/19 07:50 64 18 95 Nasal Cannula 2.0 28 07/25/19 04:51 98.3 07/25/19 04:00 98.3 67 18 148/81 (103) 97 07/25/19 00:00 98.3 65 18 155/82 (106) 96 07/24/19 22:05 Nasal Cannula 2.0 07/24/19 20:00 98.2 61 18 144/87 (106) 96 07/24/19 19:41 80 18 98 Nasal Cannula 2.0 28 General Appearance: no apparent distress Cardiovascular: normal rate Respiratory/Chest: lungs clear Abdomen: normal bowel sounds, non tender, soft Extremities: no swelling Intake and Output 07/24/19 07/25/19 19:00 07:00 Intake Total 1579.723 ml 75 ml Output Total 1450 ml Balance 129.723 ml 75 ml Intake Oral 520 ml IV Total 1059.723 ml 75 ml Output Urine Total 1450 ml # Voids 1 4 Laboratory Tests Test 07/25/19 06:00 White Blood Count 4.0 K/UL (4.8-10.8) L Red Blood Count 5.14 M/UL (4.70-6.10) Hemoglobin 15.1 G/DL (14.2-18.0) Hematocrit 44.2 % (42.0-52.0) Mean Corpuscular Volume 86 FL (80-99) Mean Corpuscular Hemoglobin 29.3 PG (27.0-31.0) Mean Corpuscular Hemoglobin Concent 34.1 G/DL (32.0-36.0) Red Cell Distribution Width 12.9 % (11.6-14.8) Platelet Count 173 K/UL (150-450) Mean Platelet Volume 7.1 FL (6.5-10.1) Neutrophils (%) (Auto) 47.1 % (45.0-75.0) Lymphocytes (%) (Auto) 31.0 % (20.0-45.0) Monocytes (%) (Auto) 15.1 % (1.0-10.0) H Eosinophils (%) (Auto) 5.3 % (0.0-3.0) H Basophils (%) (Auto) 1.5 % (0.0-2.0) Sodium Level 146 MMOL/L (136-145) H Potassium Level 3.4 MMOL/L (3.5-5.1) L Chloride Level 110 MMOL/L (98-107) H Carbon Dioxide Level 27 MMOL/L (21-32) Anion Gap 9 mmol/L (5-15) Blood Urea Nitrogen 7 mg/dL (7-18) Creatinine 0.9 MG/DL (0.55-1.30) Estimat Glomerular Filtration Rate mL/min (>60) Glucose Level 96 MG/DL (74-106) Calcium Level 9.0 MG/DL (8.5-10.1) Total Bilirubin 0.6 MG/DL (0.2-1.0) Aspartate Amino Transf (AST/SGOT) 33 U/L (15-37) Alanine Aminotransferase (ALT/SGPT) 39 U/L (12-78) Alkaline Phosphatase 95 U/L (46-116) Total Creatine Kinase 128 U/L (26-308) Pro-B-Type Natriuretic Peptide 101 pg/mL (0-125) Total Protein 6.7 G/DL (6.4-8.2) Albumin 2.5 G/DL (3.4-5.0) L Globulin 4.2 g/dL Albumin/Globulin Ratio 0.6 (1.0-2.7) L Walter Roldan MD Jul 25, 2019 19:39
[2019-07-26] VITALS: BP 145/83
[2019-07-26 04:00] VITALS: BP 139/56
--- NOTE | 2019-07-26 07:30 | NUR ---
NURSE NOTES: Received pt from OSCAR BERGER/VIKAS. Pt is confused and orient x1. Pt has NC 2LMP. pt has intact iv access RFA 22g is running well. A SHIPPING ASSOCIATE is feeding pt. all needs attended, bed is locked and is in the lowest position. call light within easy reach. will continue to monitor.
--- NOTE | 2019-07-26 07:32 | NUR ---
HAND-OFF: Report given to OSCAR Boland. Patient in stable condition.
[2019-07-26 08:00] VITALS: BP 135/77
[2019-07-26 12:00] VITALS: BP 127/79
--- NOTE | 2019-07-26 12:19 | Infectious Diseases Prog Note ---
Assessment/Plan Assessment/Plan Assessment: Failure to thrive Low grade fever, sp No leukocytosis Probable UTI , sp Rx -u.a wbc 40-60, nit neg, leuk large; ucx enterococcus fecalis (S PNC, Vancomycin) -Bcx Neg Probable pNA, sp Rx -CXR: Retrocardiac infiltrate and possible left basilar pleural fluid JUAN, SP Alzheimer's disease HERON DDD HTN Plan: -Continue to monitor off abx -07/25 SP IV Vancomycin and Cefepime #8 -f/u cx -Monitor CBC/CMP, temperatures Subjective Allergies: Coded Allergies: BARBITURATES (Verified Allergy, Unknown, 07/07/16) BENZODIAZEPINES (Verified Allergy, Unknown, 07/07/16) CIPROFLOXACIN (Verified Allergy, Unknown, 07/18/19) DIPHENHYDRAMINE (Verified Allergy, Unknown, 07/07/16) DIVALPROEX SODIUM (Verified Allergy, Unknown, 07/07/16) HALOPERIDOL (Verified Allergy, Unknown, 07/07/16) LACTULOSE (Verified Allergy, Unknown, 07/18/19) LEVOFLOXACIN (Verified Allergy, Unknown, 07/18/19) LITHIUM (Verified Allergy, Unknown, 07/07/16) LORATADINE (Verified Allergy, Unknown, 07/07/16) LORAZEPAM (Verified Allergy, Unknown, 07/18/19) MEMANTINE (Verified Allergy, Unknown, 07/18/19) OLANZAPINE (Verified Allergy, Unknown, 07/07/16) PENICILLINS (Verified Allergy, Unknown, 07/07/16) QUETIAPINE (Verified Allergy, Unknown, 07/07/16) ZOLPIDEM (Verified Allergy, Unknown, 07/07/16) Uncoded Allergies: ANTIHISTAMINE (Allergy, Unknown, 07/07/16) Subjective afebrile no leukcoytosis Objective Vital Signs Last 24 Hour Vital Signs Date Time Temp Pulse Resp B/P (MAP) Pulse Ox O2 Delivery O2 Flow Rate FiO2 07/26/19 09:00 Nasal Cannula 2.0 07/26/19 08:00 98.9 60 19 135/77 (96) 95 07/26/19 07:45 56 15 96 Room Air 21 07/26/19 07:45 96 Room Air 21 07/26/19 04:00 98.3 77 18 139/56 (83) 98 07/26/19 00:00 97.3 55 18 145/83 (103) 96 07/25/19 21:00 Nasal Cannula 2.0 07/25/19 20:01 64 18 95 Nasal Cannula 2.0 28 07/25/19 20:01 95 Nasal Cannula 2.0 28 07/25/19 20:00 97.8 60 16 127/88 (101) 95 07/25/19 16:00 97.6 76 20 145/76 (99) 99 07/25/19 14:00 58 Height (Feet): 5 Height (Inches): 11.00 Weight (Pounds): 167 Objective General Appearance: WD/WN, no apparent distress Lines, tubes and drains: peripheral, PICC HEENT: normocephalic, atraumatic Neck: non-tender, normal alignment, supple Respiratory/Chest: chest wall non-tender, lungs clear Breasts: no masses Cardiovascular/Chest: normal peripheral pulses Abdomen: normal bowel sounds Genitourinary/Rectal: normal genital exam Extremities: normal range of motion Current Medications Medications (Trade) Dose Ordered Sig/Monisha Route PRN Reason Start Time Stop Time Status Last Admin Dose Admin Acetaminophen (Tylenol) 650 mg Q4H PRN ORAL fever (T>100.5F) 07/24/19 16:00 08/17/19 15:59 Albuterol/ Ipratropium (Albuterol/ Ipratropium) 3 ml Q4H PRN HHN Shortness of Breath 07/24/19 16:00 07/26/19 15:59 Dextrose 1,000 ml @ 75 mls/hr [id number] IV 07/24/19 16:00 08/18/19 13:26 07/26/19 03:18 Furosemide (Lasix) 40 mg DAILY IV 07/25/19 09:00 08/22/19 13:29 07/26/19 09:11 Mirtazapine (Remeron) 15 mg BEDTIME ORAL 07/25/19 21:00 08/24/19 20:59 07/25/19 20:59 Ondansetron HCl (Zofran) 4 mg Q6H PRN IVP Nausea & Vomiting 07/24/19 16:00 08/17/19 15:59 Phenazopyridine HCl (Pyridium) 100 mg DAILYPRN PRN ORAL dysuria 07/24/19 16:00 08/23/19 15:59 Polyethylene Glycol (Miralax) 17 gm DAILYPRN PRN ORAL Constipation 07/24/19 16:00 08/23/19 15:59 Potassium Chloride (K-Dur) 40 meq DAILY ORAL 07/25/19 13:15 08/24/19 13:14 07/26/19 09:11 Gina Baker M.D. Jul 26, 2019 12:19
--- NOTE | 2019-07-26 13:50 | Pulmonology Progress Note ---
Assessment/Plan Problems: (1) Anemia (2) HTN (hypertension) (3) Obstructive sleep apnea (4) Hypernatremia (5) Alzheimer's dementia with behavioral disturbance (6) ATN (acute tubular necrosis) Assessment/Plan doing better K supplement check electrolytes respiratory treatment titrate fio2 to sat of 92% dvt prophylaxis. on Remeron 7.5 psych consult appreciated Subjective Interval Events: awake, trying to kick me with his legs when I get closer Allergies: Coded Allergies: BARBITURATES (Verified Allergy, Unknown, 07/07/16) BENZODIAZEPINES (Verified Allergy, Unknown, 07/07/16) CIPROFLOXACIN (Verified Allergy, Unknown, 07/18/19) DIPHENHYDRAMINE (Verified Allergy, Unknown, 07/07/16) DIVALPROEX SODIUM (Verified Allergy, Unknown, 07/07/16) HALOPERIDOL (Verified Allergy, Unknown, 07/07/16) LACTULOSE (Verified Allergy, Unknown, 07/18/19) LEVOFLOXACIN (Verified Allergy, Unknown, 07/18/19) LITHIUM (Verified Allergy, Unknown, 07/07/16) LORATADINE (Verified Allergy, Unknown, 07/07/16) LORAZEPAM (Verified Allergy, Unknown, 07/18/19) MEMANTINE (Verified Allergy, Unknown, 07/18/19) OLANZAPINE (Verified Allergy, Unknown, 07/07/16) PENICILLINS (Verified Allergy, Unknown, 07/07/16) QUETIAPINE (Verified Allergy, Unknown, 07/07/16) ZOLPIDEM (Verified Allergy, Unknown, 07/07/16) Uncoded Allergies: ANTIHISTAMINE (Allergy, Unknown, 07/07/16) Objective Last 24 Hour Vital Signs Date Time Temp Pulse Resp B/P (MAP) Pulse Ox O2 Delivery O2 Flow Rate FiO2 07/26/19 12:00 97.9 62 19 127/79 (95) 96 07/26/19 09:00 Nasal Cannula 2.0 07/26/19 08:00 98.9 60 19 135/77 (96) 95 07/26/19 07:45 56 15 96 Room Air 21 07/26/19 07:45 96 Room Air 21 07/26/19 04:00 98.3 77 18 139/56 (83) 98 07/26/19 00:00 97.3 55 18 145/83 (103) 96 07/25/19 21:00 Nasal Cannula 2.0 07/25/19 20:01 64 18 95 Nasal Cannula 2.0 28 07/25/19 20:01 95 Nasal Cannula 2.0 28 07/25/19 20:00 97.8 60 16 127/88 (101) 95 07/25/19 16:00 97.6 76 20 145/76 (99) 99 07/25/19 14:00 58 Intake and Output 07/25/19 07/26/19 18:59 06:59 Intake Total 1220 ml 525 ml Output Total 150 ml Balance 1070 ml 525 ml Intake Oral 120 ml IV Total 900 ml 525 ml Other 200 ml Output Urine Total 150 ml # Voids 4 2 # Bowel Movements 3 Objective General Appearance: cachetic, thin Lines, tubes and drains: peripheral HEENT: normocephalic, atraumatic Neck: non-tender, normal alignment Cardiovascular/Chest: normal peripheral pulses, normal rate Abdomen: normal bowel sounds, non tender Genitourinary/Rectal: normal genital exam, normal rectal exam Extremities: normal range of motion, non-tender Skin Exam: normal pigmentation Neurologic/Psychiatric: chemist enzymes II-XII grossly normal Current Medications Medications (Trade) Dose Ordered Sig/Monisha Route PRN Reason Start Time Stop Time Status Last Admin Dose Admin Acetaminophen (Tylenol) 650 mg Q4H PRN ORAL fever (T>100.5F) 07/24/19 16:00 08/17/19 15:59 Albuterol/ Ipratropium (Albuterol/ Ipratropium) 3 ml Q4H PRN HHN Shortness of Breath 07/24/19 16:00 07/26/19 15:59 Dextrose 1,000 ml @ 75 mls/hr [id number] IV 07/24/19 16:00 08/18/19 13:26 07/26/19 03:18 Furosemide (Lasix) 40 mg DAILY IV 07/25/19 09:00 08/22/19 13:29 07/26/19 09:11 Mirtazapine (Remeron) 15 mg BEDTIME ORAL 07/25/19 21:00 08/24/19 20:59 07/25/19 20:59 Ondansetron HCl (Zofran) 4 mg Q6H PRN IVP Nausea & Vomiting 07/24/19 16:00 08/17/19 15:59 Phenazopyridine HCl (Pyridium) 100 mg DAILYPRN PRN ORAL dysuria 07/24/19 16:00 08/23/19 15:59 Polyethylene Glycol (Miralax) 17 gm DAILYPRN PRN ORAL Constipation 07/24/19 16:00 08/23/19 15:59 Potassium Chloride (K-Dur) 40 meq DAILY ORAL 07/25/19 13:15 08/24/19 13:14 07/26/19 09:11 Eladio Scott MD Jul 26, 2019 13:50
--- NOTE | 2019-07-26 13:53 | NUR ---
PACKING ATTENDANTACID STRENGTH INSPECTOR SI: FAILURE TO THRIVE UTI T. 97.9 HR 56 RR 19 B/P 135/77 IS: REMERON PO K-DUR PO MED/SURG STATUS
[2019-07-26 16:00] VITALS: BP 134/70
--- NOTE | 2019-07-26 19:26 | Cardiology Progress Note ---
Assessment/Plan Assessment/Plan htn anemia jade dementia poor pop intake probnp remain sig low bp is fien cxr ntoed await echo labs noted decreae ivf rate Objective Last 24 Hour Vital Signs Date Time Temp Pulse Resp B/P (MAP) Pulse Ox O2 Delivery O2 Flow Rate FiO2 07/26/19 16:00 98.5 69 19 134/70 (91) 96 07/26/19 12:00 97.9 62 19 127/79 (95) 96 07/26/19 09:00 Nasal Cannula 2.0 07/26/19 08:00 98.9 60 19 135/77 (96) 95 07/26/19 07:45 56 15 96 Room Air 21 07/26/19 07:45 96 Room Air 21 07/26/19 04:00 98.3 77 18 139/56 (83) 98 07/26/19 00:00 97.3 55 18 145/83 (103) 96 07/25/19 21:00 Nasal Cannula 2.0 07/25/19 20:01 64 18 95 Nasal Cannula 2.0 28 07/25/19 20:01 95 Nasal Cannula 2.0 28 07/25/19 20:00 97.8 60 16 127/88 (101) 95 Intake and Output 07/25/19 07/26/19 19:00 07:00 Intake Total 1220 ml 450 ml Output Total 150 ml Balance 1070 ml 450 ml Intake Oral 120 ml IV Total 900 ml 450 ml Other 200 ml Output Urine Total 150 ml # Voids 4 2 # Bowel Movements 3 Walter Roldan MD Jul 26, 2019 19:26
--- NOTE | 2019-07-26 19:37 | NUR ---
HAND-OFF: Report given to FAINAU RN.
--- NOTE | 2019-07-26 19:56 | NUR ---
NURSE NOTES: Received report from OSCAR Boland. Patient asleep. Patient on 2L NC, breathing unlabored without distress, discomfort, or sob. No s/s of pain noted at this time. IV site intact on right forearm, saline locked. Bilateral soft wrist restraints noted with pulse, warmth, and mobility intact on both wrists/hands. Bed placed at the lowest with alarm, brake, and side rails up for safety. Call light placed within reach. Will continue to monitor.
[2019-07-26 20:00] VITALS: BP 109/76
--- NOTE | 2019-07-26 21:15 | Progress Note ---
DATE: 07/26/2019 SUBJECTIVE: The patient was agitated last night. Remeron was administered last night. The patient is less agitated. Still has episodes of agitation. More manageable. Mirtazapine was increased. The patient is confused and disoriented. MENTAL STATUS EXAMINATION: The patient is alert, knows his name, however, disoriented. Mood is agitated. Affect is flat. Thought process, there is a paucity of thought content. Thought content, no suicidal or homicidal ideation. ASSESSMENT: 1. Dementia with behavior disturbance. 2. Failure to thrive. PLAN: 1. The patient will continue Remeron 50 mg. 2. Zyprexa 2.5 mg in the morning. 3. Discussed with the staff. Irlanda Concepcion M.D. DR: TAYA JOB#: [id number] CC:
[2019-07-27] VITALS: BP 115/61
--- NOTE | 2019-07-27 01:34 | NUR ---
NURSE NOTES: Noted 's discharge order placed at 2150. Called [facility] to give a report[facility] will not accept the patient at this time and it is confirmed with the administration office. Patient's daughter was notified of this information but insisted that patient to be sent out without confirmation from the facility. Charge nurse, nursing house mover supervisor, and public health social worker (Mandy) made aware of the situation. Nursing house mover supervisor confirmed that we cannot send out the patient without facility's approval. They made a agreement that public health social worker and case management to have conference call with the patient's daughter tomorrow morning. Dr. Scott notified that discharge was delayed because facility cannot accept the patient at this time. Will continue to monitor and provide care as ordered.
[2019-07-27 04:00] VITALS: BP 104/70
--- NOTE | 2019-07-27 06:46 | NUR ---
NURSE NOTES: At 434, [facility] forcefully requested on releasing the patient from restraints without Dr's order. Refuse to allow RN to contact the Dr to confirm and refused to listen to what state patient is in. Attempted to inform that patient tries gets out of the bed, pulls on medical devices, and combative. Conservator refused to listen. Made comments that she will call the police if the restraints are not removed at this time. Nursing refueling ramp supervisor made aware and instructed to pulled out floor staff to place as sitter and released restraints at 5. Dr. Scott made aware after releasing the restraints in timely manner. also informed that [facility] wanted tylenol for mild pain and neosporin to be applied to patient's bilateral wrists. Dr. Scott ordered tylenol 650 mg q 4hrs prn for mild pain and no new orders to follow up on neosporin application. Will carry out the order as given. Addendum: 07/27/19 at 0745 by Katelyn Rangel RN Dr. Scott confirmed okay to discontinue restraints and place a sitter at the bedside. Order carried out.
--- NOTE | 2019-07-27 07:19 | Pulmonology Progress Note ---
Assessment/Plan Problems: (1) Anemia (2) HTN (hypertension) (3) Obstructive sleep apnea (4) Hypernatremia (5) Alzheimer's dementia with behavioral disturbance (6) ATN (acute tubular necrosis) Assessment/Plan daughter tried to send him to [facility] rehab last night. But they refused to take him back. off restrains now, with sitter at the bed site daughter refusing any psychiatric meds Subjective ROS Limited/Unobtainable: No Constitutional: Reports: no symptoms HEENT: Repors: no symptoms Allergies: Coded Allergies: BARBITURATES (Verified Allergy, Unknown, 07/07/16) BENZODIAZEPINES (Verified Allergy, Unknown, 07/07/16) CIPROFLOXACIN (Verified Allergy, Unknown, 07/18/19) DIPHENHYDRAMINE (Verified Allergy, Unknown, 07/07/16) DIVALPROEX SODIUM (Verified Allergy, Unknown, 07/07/16) HALOPERIDOL (Verified Allergy, Unknown, 07/07/16) LACTULOSE (Verified Allergy, Unknown, 07/18/19) LEVOFLOXACIN (Verified Allergy, Unknown, 07/18/19) LITHIUM (Verified Allergy, Unknown, 07/07/16) LORATADINE (Verified Allergy, Unknown, 07/07/16) LORAZEPAM (Verified Allergy, Unknown, 07/18/19) MEMANTINE (Verified Allergy, Unknown, 07/18/19) OLANZAPINE (Verified Allergy, Unknown, 07/07/16) PENICILLINS (Verified Allergy, Unknown, 07/07/16) QUETIAPINE (Verified Allergy, Unknown, 07/07/16) ZOLPIDEM (Verified Allergy, Unknown, 07/07/16) Uncoded Allergies: ANTIHISTAMINE (Allergy, Unknown, 07/07/16) Objective Last 24 Hour Vital Signs Date Time Temp Pulse Resp B/P (MAP) Pulse Ox O2 Delivery O2 Flow Rate FiO2 07/27/19 04:00 98.3 55 18 104/70 (81) 94 07/27/19 00:00 97.8 60 19 115/61 (79) 95 07/26/19 21:00 Nasal Cannula 2.0 07/26/19 20:00 98.8 62 19 109/76 (87) 96 07/26/19 19:39 96 Room Air 21 07/26/19 16:00 98.5 69 19 134/70 (91) 96 07/26/19 12:00 97.9 62 19 127/79 (95) 96 07/26/19 09:00 Nasal Cannula 2.0 07/26/19 08:00 98.9 60 19 135/77 (96) 95 07/26/19 07:45 56 15 96 Room Air 21 07/26/19 07:45 96 Room Air 21 Intake and Output 07/26/19 07/27/19 19:00 07:00 Intake Total 450 ml 1720 ml Output Total 150 ml Balance 450 ml 1570 ml Intake Oral 120 ml IV Total 450 ml Other 1600 ml Output Urine Total 150 ml # Voids 1 Objective General Appearance: cachetic, thin Lines, tubes and drains: peripheral HEENT: normocephalic, atraumatic Neck: non-tender, normal alignment Cardiovascular/Chest: normal peripheral pulses, normal rate Abdomen: normal bowel sounds, non tender Genitourinary/Rectal: normal genital exam, normal rectal exam Extremities: normal range of motion, non-tender Skin Exam: normal pigmentation Current Medications Medications (Trade) Dose Ordered Sig/Monisha Route PRN Reason Start Time Stop Time Status Last Admin Dose Admin Acetaminophen (Tylenol) 650 mg Q4H PRN ORAL fever (T>100.5F) 07/24/19 16:00 08/17/19 15:59 Acetaminophen (Tylenol) 650 mg Q4H PRN ORAL Mild Pain 07/27/19 07:00 08/26/19 06:59 Mirtazapine (Remeron) 15 mg BEDTIME ORAL 07/25/19 21:00 08/24/19 20:59 07/26/19 21:14 Olanzapine (ZyPREXA) 2.5 mg DAILY ORAL 07/27/19 09:00 08/26/19 08:59 Ondansetron HCl (Zofran) 4 mg Q6H PRN IVP Nausea & Vomiting 07/24/19 16:00 08/17/19 15:59 Phenazopyridine HCl (Pyridium) 100 mg DAILYPRN PRN ORAL dysuria 07/24/19 16:00 08/23/19 15:59 Polyethylene Glycol (Miralax) 17 gm DAILYPRN PRN ORAL Constipation 07/24/19 16:00 08/23/19 15:59 Potassium Chloride (K-Dur) 40 meq DAILY ORAL 9/5/19 13:15 08/24/19 13:14 07/26/19 09:11 Eladio Scott MD Jul 27, 2019 07:19
--- NOTE | 2019-07-27 07:30 | NUR ---
NURSE NOTES: Received pt from RN SHIREEN NAIK. Pt is confused and orient x1. pt has NC 2LMP. pt has intact iv access RFA 22g SL. sitter FILIBERTO BRUNOA is on bed side. No more restrain. pt is sleeping now. all needs attended, bed is locked and is in the lowest position. call light within easy reach. will continue to monitor.
--- NOTE | 2019-07-27 07:42 | NUR ---
NURSE NOTES: Received order from Dr. Scott to discontinue remeron and zyprexa. Order carried out.
--- NOTE | 2019-07-27 07:57 | NUR ---
HAND-OFF: Report given to OSCAR Boland.
[2019-07-27 08:00] VITALS: BP 101/70
--- NOTE | 2019-07-27 08:36 | NUR ---
CHARGE NURSE NOTE: Pt is scheduled to be discharged today to [facility]. Spoke with Laura- Admission department is not working today- they are not able to accept patient. Mishel -plastic tubing insulation supervisor is busy; CN will talk to her later. All paper work has been sent to [phone].
[2019-07-27] MEDS ORDERED: OLANZapine 2.5mg tab ORAL SCH (09:00)
--- NOTE | 2019-07-27 10:19 | NUR ---
CHARGE NURSE NOTE: Spoke with [facility]. supervisor dials Mishel regarding patient discharge to their facility. He is still waiting for admission dep. approval. If it is happened he will notify us.
[2019-07-27 12:00] VITALS: BP 119/67
--- NOTE | 2019-07-27 12:01 | Infectious Diseases Prog Note ---
Assessment/Plan Assessment/Plan Failure to thrive Low grade fever, sp No leukocytosis Probable UTI , sp Rx -u.a wbc 40-60, nit neg, leuk large; ucx enterococcus fecalis (S PNC, Vancomycin) -Bcx Neg Probable pNA, sp Rx -CXR: Retrocardiac infiltrate and possible left basilar pleural fluid JUAN, SP Alzheimer's disease HERON DDD HTN Plan: -Continue to monitor off abx as he is stable -07/25 SP IV Vancomycin and Cefepime #8 -f/u cx -Monitor CBC/CMP, temperatures Subjective Allergies: Coded Allergies: BARBITURATES (Verified Allergy, Unknown, 07/07/16) BENZODIAZEPINES (Verified Allergy, Unknown, 07/07/16) CIPROFLOXACIN (Verified Allergy, Unknown, 07/18/19) DIPHENHYDRAMINE (Verified Allergy, Unknown, 07/07/16) DIVALPROEX SODIUM (Verified Allergy, Unknown, 07/07/16) HALOPERIDOL (Verified Allergy, Unknown, 07/07/16) LACTULOSE (Verified Allergy, Unknown, 07/18/19) LEVOFLOXACIN (Verified Allergy, Unknown, 07/18/19) LITHIUM (Verified Allergy, Unknown, 07/07/16) LORATADINE (Verified Allergy, Unknown, 07/07/16) LORAZEPAM (Verified Allergy, Unknown, 07/18/19) MEMANTINE (Verified Allergy, Unknown, 07/18/19) OLANZAPINE (Verified Allergy, Unknown, 07/07/16) PENICILLINS (Verified Allergy, Unknown, 07/07/16) QUETIAPINE (Verified Allergy, Unknown, 07/07/16) ZOLPIDEM (Verified Allergy, Unknown, 07/07/16) Uncoded Allergies: ANTIHISTAMINE (Allergy, Unknown, 07/07/16) Subjective Afebrile Satting well No complaints Objective Vital Signs Last 24 Hour Vital Signs Date Time Temp Pulse Resp B/P (MAP) Pulse Ox O2 Delivery O2 Flow Rate FiO2 07/27/19 09:36 97.1 07/27/19 09:00 Nasal Cannula 2.0 07/27/19 08:00 97.1 63 18 101/70 (80) 97 07/27/19 04:00 98.3 55 18 104/70 (81) 94 07/27/19 00:00 97.8 60 19 115/61 (79) 95 07/26/19 21:00 Nasal Cannula 2.0 07/26/19 20:00 98.8 62 19 109/76 (87) 96 07/26/19 19:39 96 Room Air 21 07/26/19 16:00 98.5 69 19 134/70 (91) 96 Height (Feet): 5 Height (Inches): 11.00 Weight (Pounds): 167 Objective General Appearance: NAD HEENT: normocephalic, atraumatic, MMM, EOMI Respiratory/Chest: chest wall non-tender, lungs clear Cardiovascular/Chest: RRR, S1, S2 Abdomen: normal bowel sounds Current Medications Medications (Trade) Dose Ordered Sig/Monisha Route PRN Reason Start Time Stop Time Status Last Admin Dose Admin Acetaminophen (Tylenol) 650 mg Q4H PRN ORAL fever (T>100.5F) 07/24/19 16:00 08/17/19 15:59 07/27/19 09:06 Acetaminophen (Tylenol) 650 mg Q4H PRN ORAL Mild Pain 07/27/19 07:00 08/26/19 06:59 Ondansetron HCl (Zofran) 4 mg Q6H PRN IVP Nausea & Vomiting 07/24/19 16:00 08/17/19 15:59 Phenazopyridine HCl (Pyridium) 100 mg DAILYPRN PRN ORAL dysuria 07/24/19 16:00 08/23/19 15:59 Polyethylene Glycol (Miralax) 17 gm DAILYPRN PRN ORAL Constipation 07/24/19 16:00 08/23/19 15:59 07/27/19 09:15 Potassium Chloride (K-Dur) 40 meq DAILY ORAL 07/25/19 13:15 08/24/19 13:14 07/27/19 08:55 Adam Hurtado MD Jul 27, 2019 12:01
[2019-07-27] MEDS ORDERED: Fleet's Mineral Oil Enema RECTAL SCH (13:10)
[2019-07-27] MEDS ORDERED: ACETAMINOPHEN325 M1 ORAL (13:19)
--- NOTE | 2019-07-27 13:57 | NUR ---
NURSE NOTES: Pt has D/C order, all discharge assessments and instructions done. pt is stable. V/S stable. pt's daughter NOE is aware about D/C. Report given to SN[facility] RN FRANNIE. waiting for ambulance to cook pickled meat pt. will continue to monitor.
--- NOTE | 2019-07-27 14:40 | NUR ---
NURSE NOTES: pt is stable, V/S stable, no belongings are with pt, RN FRANNIE is notified that pt had 3 times BM on 07/25/19. iv access D/C. pt left hospital with accompany of ambulance personnel.
--- NOTE | 2019-07-27 22:43 | Cardiology Progress Note ---
Assessment/Plan Assessment/Plan based on available information, his fluid status is balanced Subjective Subjective The patient is agitated and confused unable to give any history Objective Last 24 Hour Vital Signs Date Time Temp Pulse Resp B/P (MAP) Pulse Ox O2 Delivery O2 Flow Rate FiO2 07/27/19 12:00 98.0 55 17 119/67 (84) 98 07/27/19 09:36 97.1 07/27/19 09:00 Nasal Cannula 2.0 07/27/19 08:00 97.1 63 18 101/70 (80) 97 07/27/19 04:00 98.3 55 18 104/70 (81) 94 07/27/19 00:00 97.8 60 19 115/61 (79) 95 General Appearance: mild distress, agitated EENT: PERRL/EOMI Neck: JVD Rhythm: NSR Cardiovascular: normal rate Respiratory/Chest: crackles/rales, other - decreased BS at bases Abdomen: soft Intake and Output 07/26/19 07/27/19 19:00 07:00 Intake Total 450 ml 1720 ml Output Total 150 ml Balance 450 ml 1570 ml Intake Oral 120 ml IV Total 450 ml Other 1600 ml Output Urine Total 150 ml # Voids 1 Radha Arreola MD Jul 27, 2019 22:43
--- NOTE | 2019-07-28 15:29 | Cardiology Report ---
APPROVED REPORT EKG Measurement Heart [id number] Sinus bradycardia Nonspecific T wave abnormality Abnormal ECG
--- NOTE | 2019-07-29 08:47 | Discharge Summary ---
Discharge Summary Discharge Summary _ DATE OF ADMISSION:07/18/2019 DATE OF DISCHARGE: 07/27/2019 DISCHARGED BY: Dr. Scott REASON FOR ADMISSION: 79 years old male with past medical history of Alzheimer disease obstructive sleep apnea,, degenerative disc disease, hypertension, brought from group home facility due to not eating for 1 week. Patient by himself was unable to provide any history due to advanced dementia. Upon evaluation in emergency department patient was found to be in acute renal failure and admitted for further management. CONSULTANTS: excel expert Dr. Roldan ID specialist Dr. Isabel psychiatrist [facility] COURSE: Patient admitted and started on the IV fluids. Renal parameters and electrolytes were closely monitored. Electrolytes corrected as needed. Nephrotoxic's were avoided Hypernatremia resolved with IV hydration. Sodium from initial 160 down to 146. Potassium was replaced. Acute renal failure resolved : BUN down to 7 and creatinine down to 0.9. Hemoglobin and hematocrit remained stable. Infectious disease specialist followed. Patient had initially low-grade fever, but no leukocytosis. Urine culture revealed Enterococcus faecalis. Blood cultures were negative. Chest x-ray showed retrocardiac infiltrate and possible left basilar pleural fluid. Patient undergone antibiotic treatment for UTI and pneumonia. Supplemental oxygen provided as needed to keep pulse oximetry above 92%. Pulmonary toilet was on standby as needed. Low-grade fever resolved. No leukocytosis. Infectious disease specialist recommended to keep patient off antibiotic as patient appeared stable and monitor clinically. DVT prophylaxis provided. Bedside swallow evaluation revealed evidence of dysphagia. Diet texture provided as per speech therapist recommendations with strict aspiration/reflux precautions. Bridge Worker Apprentice followed. Blood pressure was closely monitored and remained stable without antihypertensive medication. Echocardiogram demonstrated preserved ejection fraction 55% with no evidence of wall motion abnormality. No evidence of left ventricular hypertrophy. Right ventricular systolic pressure of 22. Evidence of aortic stenosis. IV fluids stopped as renal parameters stabilized. Pro BNP initially 62 , later after IV fluids 101. Psychiatrist followed. Psychiatric medication regimen was optimized. Patient clinically stabilized and was ready for transfer back to group home facility for continuation of care. FINAL DIAGNOSES: Acute tubular necrosis-resolved Probably UTI with Enterococcus faecalis, status post treatment Probably pneumonia, status post treatment Hypertension Hypernatremia -resolved Dementia with behavioral disturbances DISCHARGE MEDICATIONS: See Medication Reconciliation list. DISCHARGE INSTRUCTIONS: Patient was discharged to the group home facility. Follow up with medical doctor at the facility. I have been assigned to dictate discharge summary for this account. I was not involved in the patient's management. Shavon Elaine NP Jul 29, 2019 08:47
--- NOTE | 2019-07-29 08:53 | Cardiology Report ---
APPROVED REPORT EXAM: Two-dimensional and M-mode echocardiogram with Doppler and color Doppler. INDICATION Congestive Heart Failure M-Mode DIMENSIONS IVSd1.0 (0.7-1.1cm)Left Atrium (MM)3.7 (1.6-4.0cm) LVDd4.4 (3.5-5.6cm)Aortic Root3.9 (2.0-3.7cm) PWd1.0 (0.7-1.1cm)Aortic Cusp Exc.1.3 (1.5-2.0cm) IVSs1.1 cm LVDs2.8 (2.5-4.0cm) PWs1.5 cm Normal left ventricular chamber size, systolic function and wall motion . Left ventricular ejection fraction estimated to be 55 %. No left ventricular hypertrophy. No evidence of pericardial effusion. All other cardiac chamber sizes are within normal limits. Thickened mitral valve leaflets with normal excursion. Aortic valve calcification with decreased cusp excursion c/w aortic stenosis. Mitral annulus and aortic root calcification. Normal pulmonic valve structure. Normal tricuspid valve structure. IVC at normal size with physiologic collapse. A color flow and spectral Doppler study was performed and revealed: Mild aortic insufficiency. Peak aortic valve gradient of 22 mm Hg and a mean of 9 mmHg. Aortic valve area 1.2 cm2 calculated by continuity equation. Mild mitral regurgitation. Mitral diastolic velocities suggest reduced left ventricular relaxation c/w mild LV diastolic dysfunction (Grade I ) Trace tricuspid regurgitation. Tricuspid systolic velocities suggests peak right ventricular systolic pressure of 22 mmHg.
== END 2019-07-27 14:42 | DRG 682 ==
LOC: EDBD 11:15 → EDUNIT# 11:15 → EMR 11:55 → 4E 12:00 → EDBEDREQ 14:16 → 4E 14:51 → 2W 07-23 11:32 → 4E 07-24 15:38
DX: N17.0 Acute kidney failure with tubular necrosis (principal); J18.9 Pneumonia, unspecified organism; N39.0 Urinary tract infection, site not specified; F02.81 Dementia in other diseases classified elsewhere, unspecified severity, with behavioral disturbance; E87.0 Hyperosmolality and hypernatremia; G30.9 Alzheimer's disease, unspecified; G47.33 Obstructive sleep apnea (adult) (pediatric); I10 Essential (primary) hypertension; D64.9 Anemia, unspecified; Z88.8 Allergy status to other drugs, medicaments and biological substances; Z88.1 Allergy status to other antibiotic agents; Z88.0 Allergy status to penicillin; Z79.82 Long term (current) use of aspirin; B95.2 Enterococcus as the cause of diseases classified elsewhere; R62.7 Adult failure to thrive
CPT/HCPCS: 36415; 36600; 71045; 74018; 80053; 80202; 81003; 82550; 82803; 82962; 83605; 83690; 83735; 83880; 84100; 84484; 85025; 85610; 85651; 85730; 86140; 87040; 87081; 87086; 87181; 92610; 93005; 93306; 94664; 96361; 96365; 96368; 99285; J8499